=== PATIENT | female | born 1945 | race Caucasian/White ===

== ENCOUNTER → 2018-01-16 13:40 | Outpatient (CLI) | payer MEDICARE, OTHER, SELFPAY | PROVIDERS: Family Provider Internal Medicine; PCP Physician Assistant; Visit Provider Physician Assistant | DX: N39.0 Urinary tract infection, site not specified (principal) | CPT/HCPCS: 87086 ==

== ENCOUNTER → 2018-04-29 09:50 | Outpatient (CLI) | payer MEDICARE, OTHER, SELFPAY ==
--- NOTE | 2018-04-29 09:52 | DI.MG.S_ITS ---
BILATERAL DIGITAL SCREENING MAMMOGRAM 3D/2D WITH CAD: 04/29/2018 CLINICAL: Routine screening. Family history of breast cancer. Comparison is made to exams dated: 09/08/2014 mammogram, 08/27/2014 mammogram, and 08/24/2011 mammogram - [facility]. The tissue of both breasts is extremely dense, which lowers the sensitivity of mammography. Current study was also evaluated with a Computer Aided Detection (CAD) system. There is an asymmetry in the right breast posterior depth superior region seen on the mediolateral oblique view only. There is architectural distortion in the left breast posterior depth superior region seen on the mediolateral oblique view only. No other significant masses or calcifications are seen in either breast. IMPRESSION: INCOMPLETE: NEEDS ADDITIONAL IMAGING EVALUATION The asymmetry in the right breast posterior depth superior region seen on the mediolateral oblique view only is indeterminate. Additional views with possible ultrasound are recommended. The architectural distortion in the left breast posterior depth superior region seen on the mediolateral oblique view only is indeterminate. Additional views with possible ultrasound are recommended. This exam was interpreted at Station ID: [id number]. NOTE: For mammograms, a report in lay terms will be sent to the patient. Approximately 15% of breast malignancies will not be visualized mammographically. In the management of a palpable breast mass, a negative mammogram must not discourage biopsy of a clinically suspicious lesion. Electronically Signed By: Tien rocha/stephanie:04/29/2018 13:53:57 letter sent: Additional Imaging Needed ACR BI-RADS Category 0: Incomplete 3340F
== END ==
PROVIDERS: Family Provider Internal Medicine; PCP Physician Assistant; Visit Provider Family Medicine
DX: Z12.31 Encounter for screening mammogram for malignant neoplasm of breast (principal); Z80.3 Family history of malignant neoplasm of breast; M85.88 Other specified disorders of bone density and structure, other site; Z78.0 Asymptomatic menopausal state
CPT/HCPCS: 77063; 77067; 77080

== ENCOUNTER → 2018-05-20 14:47 | Outpatient (CLI) | payer MEDICARE, OTHER, SELFPAY ==
--- NOTE | 2018-05-20 14:49 | DI.US.S_ITS ---
ULTRASOUND OF RIGHT BREAST: 05/20/2018 CLINICAL: Follow up from addtional views. Comparison is made to exams dated: 05/20/2018 mammogram, 04/29/2018 mammogram, and 09/08/2014 mammogram - [facility]. Real-time and Doppler ultrasound of the right breast were performed. Ricci scale images of the real-time examination were reviewed. Targeted ultrasound was performed in the upper outer right breast and right axilla. No masses or abnormalities are identified. IMPRESSION: NEGATIVE There is no sonographic evidence of malignancy in the right breast or axilla. Return to annual screening mammography of the right breast is recommended. This exam was interpreted at Station ID: [id number]. Electronically Signed By: Kameron Leblanc M.D. ecl/:05/20/2018 22:09:26 letter sent: Normal Exam Ultrasound BI-RADS: 1 Negative
--- NOTE | 2018-05-20 14:49 | DI.MG.S_ITS ---
BILATERAL DIGITAL DIAGNOSTIC MAMMOGRAM 3D/2D WITH ADDITIONAL VIEWS: 05/20/2018 CLINICAL: Additional evaluation requested from prior study. Family history of breast cancer. Comparison is made to exams dated: 04/29/2018 mammogram, 09/08/2014 mammogram, and 08/27/2014 mammogram - [facility]. The tissue of both breasts is extremely dense, which lowers the sensitivity of mammography. Previously noted are of architectural distortion in the left breast localizes to 12 o'clock position middle depth on today's exam, and measures approximately 2.5 cm in greatest extent. The asymmetry in the right breast posterior depth superior region seen on the mediolateral oblique view only of screening mammograms appears to correlate with lymph nodes. No other significant masses, calcifications, or other findings are seen in either breast. IMPRESSION: INCOMPLETE: NEEDS ADDITIONAL IMAGING EVALUATION 1) The 2.5 cm architectural distortion in the left breast is indeterminate. An ultrasound is recommended. 2) Previously noted asymmetry in the right breast posterior depth superior region seen on the mediolateral oblique view only of screening mammograms appears to correlate with lymph nodes. An ultrasound is recommended. This exam was interpreted at Station ID: [id number]. NOTE: For mammograms, a report in lay terms will be sent to the patient. Approximately 15% of breast malignancies will not be visualized mammographically. In the management of a palpable breast mass, a negative mammogram must not discourage biopsy of a clinically suspicious lesion. Electronically Signed By: Kameron Leblanc M.D. ecl/:05/20/2018 16:08:08 letter sent: Additional Imaging Needed ACR BI-RADS Category 0: Incomplete 3340F
--- NOTE | 2018-05-20 14:49 | DI.US.S_ITS ---
ULTRASOUND OF LEFT BREAST AND LEFT AXILLA: 05/20/2018 CLINICAL: Patient returns for additional imaging over a suspected mass in the left breast. Comparison is made to exams dated: 05/20/2018 mammogram, 04/29/2018 mammogram, and 09/08/2014 mammogram - [facility]. Real-time and Doppler ultrasound of the left breast and axilla were performed. Ricci scale images of the real-time examination were reviewed. There is a 1.2 cm x 1.1 cm irregular mass with an irregular margin in the left breast at 12 o'clock middle depth 3 cm from the nipple. This irregular mass is hypoechoic. This correlates with mammography findings. Color flow imaging demonstrates that there is no vascularity present. No abnormalities were seen sonographically in the left axilla. IMPRESSION: SUSPICIOUS OF MALIGNANCY - FOLLOW-UP RECOMMENDED 1) The 1.2 cm x 1.1 cm irregular mass in the left breast is at a moderate suspicion for malignancy. An ultrasound guided biopsy is recommended. 2) No left axillary lymphadenopathy. These results and recommendations were discussed with the patient at the time of the exam by the [facility] Radiologist Dr. Bar Mesa in person. This exam was interpreted at Station ID: [id number]. Electronically Signed By: Kameron Leblanc M.D. ecl/:05/20/2018 22:12:20 letter sent: Biopsy Required Ultrasound BI-RADS: 4c Suspicious abnormality - moderate concern but not classic for malignancy
== END ==
PROVIDERS: PCP Family Medicine; Visit Provider Family Medicine
DX: R92.8 Other abnormal and inconclusive findings on diagnostic imaging of breast (principal); Z80.3 Family history of malignant neoplasm of breast; N63.20 Unspecified lump in the left breast, unspecified quadrant
CPT/HCPCS: 76642; 77066; G0279

== ENCOUNTER → 2018-06-11 12:44 | Outpatient (CLI) | payer MEDICARE, OTHER, SELFPAY ==
--- NOTE | 2018-06-11 | PATH_ITS ---
[facility] Accession Number: [id number] . 01 Material submitted: . LEFT BREAST . 01 Clinical history: . MASS 12 O'CLOCK 3CM FROM NIPPLE . 02 Diagnosis: Left Breast, Mass at 12 o'clock, 3 cm From Nipple Anterior Depth, Needle Core Biopsy: Benign fibroepithelial breast tissue with dense stromal fibrosis. Negative for atypia or malignancy. MRV/06/12/2018 . 02 Electronically signed: . Xiao Bradley MD, Pathologist NPI- [id number] . 01 Gross description: . Received one formalin-filled container labeled with the patient's name and designated left breast mass 12 o'clock 3 cm from nipple. The specimen is received with a plastic filter in the container, sample loose in container and consists of multiple light yellow to sharp-white portions of tissue which aggregate to 1.1 x 0.5 x 0.3 cm. All fragments are entirely submitted in one cassette. Collection date: 06/11/2018. Collection time: 14:08. Total fixation time: 12 hours, up to 24. ([id number]) /FRR . 02 Pathologist provided ICD-10: N63.20 . 02 CPT . 732513 Specimen Comment: A duplicate report has been generated due to demographic updates. Performed at: 01 [facility] [address] [facility], [place], [place] [id number] MD Fawad Akhtar MD Phone: [phone] Performed at: [address] [facility] [address] [place], [place] [id number] MD Bj Roman MD Phone: [phone]
--- NOTE | 2018-06-11 | DI.MG.S_ITS ---
UNILATERAL LEFT DIGITAL DIAGNOSTIC MAMMOGRAM POST-NEEDLE BIOPSY: 06/11/2018 CLINICAL: Left breast mass. Post clip placement. Comparison is made to exams dated: 05/20/2018 ultrasound, 05/20/2018 mammogram, and 04/29/2018 mammogram - [facility]. The tissue of left breast is extremely dense, which lowers the sensitivity of mammography. There is a marker clip in the appropriate position in the left breast at 12 o'clock anterior depth. This marker clip placement is at the biopsy site. This correlates with ultrasound findings. IMPRESSION: POST PROCEDURE MAMMOGRAM FOR MARKER PLACEMENT There was a successful marker clip placement in the left breast anterior depth. This exam was interpreted at Station ID: [id number]. NOTE: For mammograms, a report in lay terms will be sent to the patient. Approximately 15% of breast malignancies will not be visualized mammographically. In the management of a palpable breast mass, a negative mammogram must not discourage biopsy of a clinically suspicious lesion. Electronically Signed By: Bar batista/stephanie:06/11/2018 16:49:58 ACR BI-RADS Category Post-procedure mammogram for marker placement
--- NOTE | 2018-06-11 12:46 | DI.US.S_ITS ---
ULTRASOUND GUIDED BIOPSY LEFT BREAST USING VACUUM DEVICE WITH MARKING DEVICE INSERTED AND POST MAMMOGRAPHIC IMAGIN06/11/2018 CLINICAL: Left breast mass. PATIENT CONSENT: Risks (minor bleeding, infection, vasovagal reaction and repeat procedure), benefits and alternatives were explained to the patient and written informed consent was obtained. Correlation is made to exams dated: 06/11/2018 mammogram, 05/20/2018 ultrasound, and 05/20/2018 mammogram - [facility]. An ultrasound guided biopsy using real-time ultrasound was performed for the concerning 1.1 cm x 1.2 cm x 1.3 cm microlobulated irregular shaped mass located in the left breast at 12 o'clock anterior depth. This was described on the previous ultrasound report. The skin was prepped in the usual manner. Local anesthetic was administered to the access site. A skin cory was made in the breast. The abnormality was approached from the lateral aspect. A 13 gauge biopsy needle was placed adjacent to the abnormality under ultrasound guidance. Once the needle was documented to be in the correct location, five specimens were obtained using the Mammotome biopsy system. The patient received additional local anesthetic during the procedure. A clip was inserted into the biopsy cavity. A sterile dressing was applied to the access site. Post procedure mammographic imaging demonstrates the location device at the targeted area. The specimens were sent to the laboratory for pathological analysis. IMPRESSION: ULTRASOUND GUIDED BIOPSY BENIGN Ultrasound guided biopsy of the 1.1 cm x 1.2 cm x 1.3 cm mass in the left breast at 12 o'clock anterior depth was successful. Pathology demonstrates benign breast tissue with stromal fibrosis. Findings are potentially discordant from mammographic and ultrasound findings. A surgical biopsy or repeat biopsy are recommended. Findings discussed with Dr. John's nurse on 06/13/18 at 11:20 AM. This exam was interpreted at Station ID: [id number]. Bar batista,rema/:06/13/2018 11:23:27
== END ==
PROVIDERS: PCP Family Medicine; Visit Provider Family Medicine
DX: N60.32 Fibrosclerosis of left breast (principal)
CPT/HCPCS: 19083; 77065; 88305

== ENCOUNTER → 2018-06-24 15:33 | Outpatient (CLI) | payer MEDICARE, OTHER, SELFPAY ==
--- NOTE | 2018-06-24 15:35 | DI.RAD.S_ITS ---
PROCEDURE: XR LUMBAR SPINE MIN 4V INDICATIONS: Low back pain TECHNIQUE: 5 views of the lumbar spine acquired, including both obliques. COMPARISON: [facility], , L-SPINE 2-3 VIEWS, 06/15/2014, 10:22. FINDINGS: Bones: 5 nonrib-bearing vertebrae are present. There is abnormal bony alignment with Grade I-grade 2 anterolisthesis of L4 and L5 associated with moderately severe facet osteoarthritis and moderate degenerative disc height reduction at this level, allowing ligamentous laxity. Pars interarticularis defects are not seen. Note is also mad, chronic in appearance.e of mild convex rightward scoliosis centered at L2-3. No vertebral body compression fractures. No suspicious bony lesions. Soft tissues: Overlying bowel gas pattern is normal. No suspicious soft tissue calcifications. Flexion/extension: There is normal range of motion, with preserved normal alignment. IMPRESSION: No compression fracture is found. Chronic mild convex rightward scoliosis centered at L2-3 slightly worsened from the comparison study in June 2014. Note is made of Grade I-grade 2 anterolisthesis of L4 on L5, secondary to ligamentous laxity from degenerative disc disease and moderately severe facet osteoarthritis dorsally at this level. Dictated by: Bar Mesa M.D. on 06/24/2018 at 17:24 Approved by: Bar Mesa M.D. on 06/24/2018 at 17:26
--- NOTE | 2018-06-24 15:35 | DI.RAD.S_ITS ---
PROCEDURE: XR SACRUM COCCYX MIN 2V INDICATIONS: Low back pain and sacral TECHNIQUE: 3 views of the sacrum and coccyx acquired. COMPARISON: None. FINDINGS: Bones: No fractures or dislocations but there is anterolisthesis grade 1 Grade II at L4-5 seen at the upper margin of the imaging of the sacrum on the lateral view. No suspicious bony lesions. Soft tissues: Visualized bowel gas pattern is normal. No suspicious soft tissue densities. IMPRESSION: Source of sacral pain is not seen. No sign of spondyloarthropathy. Note is made of retrolisthesis on the lateral view at L4-5 and this is Grade I-2. Please also refer to plain film imaging of the lumbosacral spine today. Dictated by: Bar Mesa M.D. on 06/24/2018 at 17:23 Approved by: Bar Mesa M.D. on 06/24/2018 at 17:24
== END ==
PROVIDERS: PCP Family Medicine; Visit Provider Registered Nurse
DX: M54.5 Low back pain (principal); M53.3 Sacrococcygeal disorders, not elsewhere classified; M43.16 Spondylolisthesis, lumbar region; M41.86 Other forms of scoliosis, lumbar region; M51.36 Other intervertebral disc degeneration, lumbar region; M47.816 Spondylosis without myelopathy or radiculopathy, lumbar region
CPT/HCPCS: 72110; 72220

== ENCOUNTER → 2018-07-29 18:13 | Outpatient (CLI) | payer MEDICARE, OTHER, SELFPAY | PROVIDERS: PCP Family Medicine; Visit Provider Physician Assistant | DX: R39.9 Unspecified symptoms and signs involving the genitourinary system (principal) | CPT/HCPCS: 87086 ==

== ENCOUNTER 2018-09-24 07:11 | Day surgery (SDC) | payer MEDICARE, OTHER, SELFPAY ==
[2018-09-19 10:56] VITALS: BMI 26.1
[2018-09-24 07:41] VITALS: BP 135/83; PULSE 68; RESP 16; TEMP 36.3; O2SAT 97; BMI 26.1
--- NOTE | 2018-09-24 09:29 | PM.PN.1 ---
Subjective Date Patient Seen: 09/24/18 Time Patient Seen: 09:29 Interval history: Patient was scheduled for surgery today but this procedure has been canceled. On review of all the films with Dr. Mesa, the lesion scheduled for excision today is no longer visible. A different lesion, anterior to the area of the abnormality on mammogram has been biopsied and has been found to be benign. Who after long discussion with both Dr. Mesa an Mrs. Singh, we have elected to cancel today's scheduled biopsy. We will order an MRI of the breast. Assuming the MRI is normal, we will plan to return to yearly screening. Other recommendations will follow if the MRI is seen to be abnormal. Exam Vital Signs (past 8 hours): - 09/24/18 07:41 Temperature 97.3 F L Pulse Rate 68 Respiratory Rate 16 Blood Pressure 135/83 Pulse Oximetry 97 Oxygen Delivery Method Room Air
== END 2018-09-24 09:18 ==
LOC: OR 07:13
PROVIDERS: PCP Family Medicine; Visit Provider Surgery

== ENCOUNTER → 2018-12-12 15:14 | Outpatient (CLI) | payer MEDICARE, OTHER, SELFPAY | PROVIDERS: PCP Family Medicine; Visit Provider Family Medicine | DX: R07.81 Pleurodynia (principal); M25.519 Pain in unspecified shoulder ==

== ENCOUNTER → 2018-12-18 10:43 | Outpatient (CLI) | payer MEDICARE, OTHER, SELFPAY ==
--- NOTE | 2018-12-18 10:46 | DI.RAD.S_ITS ---
PROCEDURE: XR CHEST 2V INDICATIONS: Shoulder pain TECHNIQUE: 2 views of the chest were acquired. COMPARISON: [facility], , CHEST 2 VIEW, 11/03/2007, 13:01. FINDINGS: Surgical changes and devices: None. Lungs and pleura: Lungs are clear. No pleural effusions or pneumothorax. Mediastinum: Mediastinal contours are normal. Heart size is normal. Bones and chest wall: No suspicious bony abnormalities. Soft tissues appear unremarkable. IMPRESSION: Normal for age, source of current shoulder pain symptoms is not seen. Dictated by: Bar Mesa M.D. on 12/18/2018 at 11:58 Approved by: Bar Mesa M.D. on 12/18/2018 at 11:58
--- NOTE | 2018-12-18 10:46 | DI.RAD.S_ITS ---
PROCEDURE: XR SHOULDER LT MIN 2V INDICATIONS: Shoulder pain TECHNIQUE: 3 views of the shoulder were acquired. COMPARISON: [facility], , SHOULDER MINIMUM 2 VIEW LEFT, 10/12/2016, 14:54. FINDINGS: Bones: No fractures or dislocations. No suspicious bony lesions. Visualized ribs appear intact. Soft tissues: No suspicious soft tissue calcifications. IMPRESSION: No trauma found but there is moderately severe degenerative osteophytic change stable over time at the glenohumeral joint. A mild to moderate degree of such degeneration is seen at the acromioclavicular joint. Dictated by: Bar Mesa M.D. on 12/18/2018 at 11:58 Approved by: Bar Mesa M.D. on 12/18/2018 at 11:59
== END ==
PROVIDERS: PCP Family Medicine; Visit Provider Family Medicine
DX: R07.81 Pleurodynia (principal); M25.512 Pain in left shoulder; M19.012 Primary osteoarthritis, left shoulder
CPT/HCPCS: 71046; 73030

== ENCOUNTER → 2020-11-16 16:44 | Outpatient (CLI) | payer MEDICARE, OTHER, SELFPAY ==
--- NOTE | 2020-11-16 16:48 | DI.MG.S_ITS ---
BILATERAL DIGITAL SCREENING MAMMOGRAM 3D/2D WITH CAD: 11/16/2020 CLINICAL: Routine screening. Family history of breast cancer. Comparison is made to exams dated: 06/11/2018 mammogram, 05/20/2018 mammogram, and 04/29/2018 mammogram - [facility]. The tissue of both breasts is heterogeneously dense. This may lower the sensitivity of mammography. Current study was also evaluated with a Computer Aided Detection (CAD) system. No significant masses, calcifications, or other findings are seen in either breast. There has been no significant interval change. IMPRESSION: NEGATIVE There is no mammographic evidence of malignancy. A 1 year screening mammogram is recommended. This exam was interpreted at Station ID: [id number]. NOTE: For mammograms, a report in lay terms will be sent to the patient. Approximately 15% of breast malignancies will not be visualized mammographically. In the management of a palpable breast mass, a negative mammogram must not discourage biopsy of a clinically suspicious lesion. Electronically Signed By: Preston cummins/stephanie:11/17/2020 07:46:15 letter sent: Normal Exam ACR BI-RADS Category 1: Negative [id number]
== END ==
PROVIDERS: PCP Family Medicine; Referring Provider Family Medicine; Visit Provider Family Medicine
DX: Z12.31 Encounter for screening mammogram for malignant neoplasm of breast (principal)
CPT/HCPCS: 77063; 77067

== ENCOUNTER → 2021-06-06 11:31 | Outpatient (CLI) | payer OTHER, SELFPAY ==
--- NOTE | 2021-06-06 11:35 | DI.RAD.S_ITS ---
PROCEDURE: XR ELBOW LT MIN 3V INDICATIONS: fall, bruising, edema TECHNIQUE: 3 views of the elbow were acquired. COMPARISON: None. FINDINGS: Bones: No fractures or dislocations. No suspicious bony lesions. Scattered degenerative subchondral sclerosis and spurring. Mild narrowing of the radiocapitellar joint space. Soft tissues: No elbow joint effusion. No suspicious soft tissue calcifications. IMPRESSION: Ipaa-ud-qfcucyzj left elbow joint degeneration. No fracture . If the patient's pain or other symptoms persist, consider further evaluation with MRI Dictated by: Jose Johnson M.D. on 06/06/2021 at 14:11 Approved by: Jose Johnson M.D. on 06/06/2021 at 14:13
== END ==
PROVIDERS: PCP Family Medicine; Referring Provider Family Medicine; Visit Provider Family Medicine
DX: M25.522 Pain in left elbow (principal); M19.022 Primary osteoarthritis, left elbow
CPT/HCPCS: 73080

== ENCOUNTER → 2022-01-30 15:43 | Outpatient (CLI) | payer MEDICARE, OTHER, SELFPAY ==
[2022-01-30 16:47] LABS: Add Manual Diff / Slide Review NO; Basophils Absolute Auto 100 /uL (0-100); Eosinophils Absolute Auto 400 /uL (0-450); Eosinophils Percent Auto 6.1 % (2-4); Hematocrit 40.5 % (36-46); Hemoglobin 13.9 g/dL (12.0-16.0); Lymphocytes Absolute Auto 2000 /uL (1100-4500); Lymphocytes Percent Auto 30.6 % (25-40); Mean Corpuscular HGB Conc 34.2 % (30-36); Mean Corpuscular Hemoglobin 31.2 PG (26-34); Monocytes Absolute Auto 400 /uL (0-900); Monocytes Percent Auto 6.9 % (3-14); Neutrophils Absolute Auto 3500 /uL (1500-7000); Neutrophils Percent Auto 55.4 % (50-75); Platelet Count 225 X10^3/uL (150-400); Red Blood Cell Count 4.45 X10^6/uL (4.0-5.2); Red Cell Distribution Width 13.1 % (11.6-14.8); White Blood Cell Count 6.4 X10^3/uL (4.5-11.0)
[2022-01-30 17:05] LABS: Alanine Aminotransferase 21 IU/L (<35); Albumin 4.5 g/dL (3.5-5.0); Albumin Globulin Ratio 1.7 (1.0-2.8); Alkaline Phosphatase 74 U/L (38-126); Aspartate Aminotransferase 24 IU/L (14-36); BUN Creatinine Ratio 19.8 (6-22); Bilirubin Total 0.3 mg/dL (0.2-1.3); Blood Urea Nitrogen 16 mg/dL (7-17); Calcium 9.4 mg/dL (8.4-10.2); Carbon Dioxide 28 mmol/L (22-32); Chloride 104 mmol/L (98-107); Cholesterol 231 mg/dL (140-199); Estimated Glomerular Filt Rate > 60 mL/min (>60); Globulin 2.7 g/dL (1.7-4.1); Glucose 133 mg/dL (80-110); HDL Cholesterol 62 mg/dL (40-60); HEMOLYSIS < 15 (0-50); LDL Cholesterol Calculated 130 mg/dL (<100); Sodium 139 mmol/L (137-145); Total Protein 7.2 g/dL (6.3-8.2); Triglycerides 194 mg/dL (35-150)
[2022-01-30 17:52] LABS: TSH w/ Reflex to FT4 1.35 uIU/mL (0.47-4.68)
== END ==
PROVIDERS: PCP Family Medicine; Referring Provider Family Medicine; Visit Provider Family Medicine
DX: E78.5 Hyperlipidemia, unspecified (principal); E03.9 Hypothyroidism, unspecified; M85.80 Other specified disorders of bone density and structure, unspecified site
CPT/HCPCS: 36415; 80053; 80061; 84443; 85025

== ENCOUNTER → 2022-02-01 16:55 | Outpatient (CLI) | payer MEDICARE, OTHER, SELFPAY ==
[2022-02-01 17:26] LABS: Hemoglobin A1C% w Est Avg Glu 5.3 % (4.0-6.0)
== END ==
PROVIDERS: PCP Family Medicine; Visit Provider Family Medicine
DX: R73.9 Hyperglycemia, unspecified (principal)
CPT/HCPCS: 83036

== ENCOUNTER → 2022-02-22 12:39 | Outpatient (CLI) | payer MEDICARE, OTHER, SELFPAY ==
--- NOTE | 2022-02-22 12:43 | DI.MG.S_ITS ---
BILATERAL DIGITAL SCREENING MAMMOGRAM 3D/2D WITH CAD: 02/22/2022 CLINICAL: Routine screening. Family history of breast cancer. Comparison is made to exams dated: 11/16/2020 mammogram, 04/29/2018 mammogram, and 08/27/2014 mammogram - [facility]. The tissue of both breasts is heterogeneously dense. This may lower the sensitivity of mammography. Current study was also evaluated with a Computer Aided Detection (CAD) system. No significant masses, calcifications, or other findings are seen in either breast. There has been no significant interval change. IMPRESSION: NEGATIVE There is no mammographic evidence of malignancy. A 1 year screening mammogram is recommended. This exam was interpreted at Station ID: [id number]. NOTE: For mammograms, a report in lay terms will be sent to the patient. Approximately 15% of breast malignancies will not be visualized mammographically. In the management of a palpable breast mass, a negative mammogram must not discourage biopsy of a clinically suspicious lesion. Electronically Signed By: Austyn beckman/stephanie:02/22/2022 14:50:50 letter sent: Normal Exam ACR BI-RADS Category 1: Negative [id number]
== END ==
PROVIDERS: PCP Family Medicine; Referring Provider Family Medicine; Visit Provider Family Medicine
DX: Z12.31 Encounter for screening mammogram for malignant neoplasm of breast (principal); Z78.0 Asymptomatic menopausal state; Z80.3 Family history of malignant neoplasm of breast; M85.89 Other specified disorders of bone density and structure, multiple sites
CPT/HCPCS: 77063; 77067; 77080

== ENCOUNTER → 2022-04-04 10:10 | Outpatient (CLI) | payer MEDICARE, OTHER, SELFPAY ==
[2022-04-04 11:22] LABS: COVID19 -Nasal RAPID Negative (Negative)
== END ==
PROVIDERS: PCP Family Medicine; Visit Provider Surgery
DX: Z20.822 Contact with and (suspected) exposure to COVID-19 (principal); Z01.812 Encounter for preprocedural laboratory examination
CPT/HCPCS: 87635; C9803

== ENCOUNTER 2022-04-05 11:53 | Day surgery (SDC) | payer MEDICARE, OTHER, SELFPAY ==
[2022-04-05 12:23] VITALS: BP 142/82; PULSE 67; RESP 16; TEMP 36.1; O2SAT 100; BMI 25.4
--- NOTE | 2022-04-05 13:35 | PM.HP.1 ---
History of Present Illness History of Present Illness Date Patient Seen: 04/05/22 Time Patient Seen: 13:36 Chief complaint: SCREENING COLONOSCOPY Narrative: Saundra is a 77-year-old woman who had a colonoscopy 10 years ago that was normal. She is otherwise healthy. Patient History Medical History (Updated 04/05/22 @ 13:37 by German Bragg MD) Acne Anxiety Arthritis Chicken pox Colitis (~1968) Foot pain Frequent UTI (~1968) Hemorrhoid (~1983) Hyperlipidemia Irregular menstrual cycle (~1949) Measles Mumps Osteopenia (~2015) Painful menstrual periods (~1949) Pneumonia Sciatica Shoulder pain (~2013) Vision disorder Surgical History H/O blepharoplasty History of ectopic (~08/1984) History of third molar tooth extraction Family & Social History Family History Mother Heart disease Father Cancer Heart disease Mental health problem Brother Diabetes mellitus Hypertension Brother Heart disease Atrial fibrillation Sister Heart disease Atrial fibrillation Grandfather Diabetes mellitus Grandmother Heart disease Social History: household members none lives independently Yes Tobacco & Substance use: Tobacco type cigarettes Smoking Status Never smoker alcohol intake current alcohol intake frequency 0-2 drinks per day Substance Use Type does not use Meds Home Medications and Allergies Home Medications Medication Instructions Recorded Confirmed Type List of supplements in scans dated See Rx Instructions .Route .COMPLEX 09/16/20 04/05/22 History 09/16/20 sodium sul 1.479 gram-potas ch See Rx Instructions PO PER PKG DIR 03/23/22 Rx 0.188 gram-magnes sul 0.225 gram #24 tabs tablet (Sutab) Allergies Allergy/AdvReac Type Severity Reaction Status Date / Time tetracycline Allergy Mild RASH Verified 04/05/22 12:11 Exam Vital Signs (past 8 hours): - 04/05/22 12:23 Temperature 97.0 F L Pulse Rate 67 Respiratory Rate 16 Blood Pressure 142/82 H Pulse Oximetry 100 Oxygen Delivery Method Room Air Oxygen Delivery Method Room Air Const General: healthy appearing Resp Effort & Inspection: normal respiratory effort GI Palpation: soft Assessment & Plan Assessment and plan (1) Colon cancer screening: Status: Acute Plan 77-year-old woman due for colonoscopy for colon cancer screening. We reviewed the risks and benefits and she would like to proceed. Time Spent With Patient Critical Care time: I spent a total of [] minutes of critical care time on this patient's care today; this time is exclusive of procedural time.
[2022-04-05] MEDS: fentaNYL 250 MCG/5 ML INJ 125 MCG IV (13:46)
[2022-04-05] MEDS: MIDAZOLAM 5 MG/5 ML VIAL IV (13:46)
--- NOTE | 2022-04-05 14:05 | PM.OP.COLON ---
Operative Date/Time/Diagnoses Date of procedure: 04/05/22 Time of procedure: 14:06 Pre-op diagnosis: Colon cancer screen Post-op diagnosis: same Procedure & Clinicians Study performed: Colonoscopy Same procedure as scheduled: Yes Surgeon: German Bragg Procedure Notes Procedure in detail: Surgeon: German Bragg MD Procedure: The patient was brought to the endoscopy suite, placed in left lateral decubitus position. The patient was connected to monitoring devices. A time-out was performed. Sedation was administered. Once the patient was adequately sedated, a digital rectal exam was performed and was normal. The scope was then inserted and advanced to the cecum where the appendiceal orifice was identified and photographed. The scope was then slowly withdrawn over greater than 6 minutes. The mucosa was thoroughly inspected. There were scattered diverticula in the sigmoid colon. The scope was retroflexed in the rectum. There were mild internal hemorrhoids but no other abnormalities were seen. The scope was straightened and removed. The patient was awakened and brought to recovery. Versed: 5 mg Fentanyl: 125 mcg EBL: 0 Findings: Ahrj-af-fsnitytn diverticulosis Scope withdrawal time: 8 Sedation minutes: 17 Post-procedure Recommendations: Colonoscopy in 10 years Disposition: PACU
[2022-04-05 14:09] VITALS: BP 127/74; PULSE 68; RESP 11; TEMP 36.1; O2SAT 95
[2022-04-05 14:14] VITALS: BP 119/68; PULSE 63; RESP 11; O2SAT 95
[2022-04-05 14:19] VITALS: BP 122/79; PULSE 66; RESP 11; O2SAT 96
[2022-04-05 14:24] VITALS: BP 115/77; PULSE 58; RESP 11; O2SAT 95
[2022-04-05 14:31] VITALS: BP 124/76; PULSE 61; RESP 11; O2SAT 94
== END 2022-04-05 14:50 | disposition home or self-care (01) ==
PROVIDERS: PCP Family Medicine; Referring Provider Surgery; Visit Provider Surgery
PROC: 0DJD8ZZ Inspection of Lower Intestinal Tract, Via Natural or Artificial Opening Endoscopic (ICD-10-PCS; CPT 45378; principal; 2022-04-05 13:15)
DX: Z12.11 Encounter for screening for malignant neoplasm of colon (principal); K57.30 Diverticulosis of large intestine without perforation or abscess without bleeding; K64.8 Other hemorrhoids
CPT/HCPCS: G0121; 99152; J2250; J3010

== ENCOUNTER → 2024-06-03 14:33 | Outpatient (CLI) | payer MEDICARE, OTHER, SELFPAY ==
--- NOTE | 2024-06-03 14:36 | DI.RAD.S_ITS ---
PROCEDURE: XR SHOULDER RT MIN 2V INDICATIONS: Right shoulder pain TECHNIQUE: 3 views of the shoulder were acquired. COMPARISON: None. FINDINGS: Bones: No fractures or dislocations. No suspicious bony lesions. Visualized ribs appear intact. Moderate acromioclavicular and glenohumeral degenerative change. No erosions. Soft tissues: No suspicious soft tissue calcifications. IMPRESSION: Moderate acromioclavicular glenohumeral arthritic change. Dictated by: Dyan Sheridan M.D. on 06/03/2024 at 21:14 Approved by: Dyan Sheridan M.D. on 06/03/2024 at 21:14
[2024-06-03 18:18] LABS: Aspartate Aminotransferase 26 IU/L (14-36); BUN Creatinine Ratio 22.5 (6-22); Blood Urea Nitrogen 16 mg/dL (7-17); Calcium 9.5 mg/dL (8.4-10.2); Carbon Dioxide 29 mmol/L (22-32); Chloride 101 mmol/L (98-107); Cholesterol 220 mg/dL (140-199); Estimated Glomerular Filt Rate > 60 mL/min (>60); Glucose 104 mg/dL (80-110); HDL Cholesterol 58 mg/dL (40-60); HEMOLYSIS < 15 (0-50); LDL Cholesterol Calculated 138 mg/dL (<100); Potassium 3.6 mmol/L (3.4-5.1); Sodium 136 mmol/L (137-145); Triglycerides 121 mg/dL (35-150)
[2024-06-03 18:47] LABS: TSH w/ Reflex to FT4 2.05 uIU/mL (0.47-4.68)
== END ==
PROVIDERS: PCP Internal Medicine; Referring Provider Internal Medicine; Visit Provider Internal Medicine
DX: E78.2 Mixed hyperlipidemia (principal); M25.511 Pain in right shoulder; M75.80 Other shoulder lesions, unspecified shoulder; M85.80 Other specified disorders of bone density and structure, unspecified site; M89.9 Disorder of bone, unspecified
CPT/HCPCS: 36415; 73030; 80048; 80061; 84443; 84450

== ENCOUNTER 2024-11-10 08:15 | Outpatient (RCR) | payer MEDICARE, OTHER, SELFPAY ==
--- NOTE | 2024-06-30 17:19 | PT.OIE ---
Current Diagnoses Pain in right shoulder (06/30/24) Lumbago with sciatica, unspecified side (06/30/24) Other shoulder lesions, right shoulder (06/30/24) Past Medical History (Last Reviewed 05/12/24 @ 06:34 by Eddie Poole MD) Acne Acquired hypothyroidism Anxiety Arthritis Chicken pox Colitis (~1968) Foot pain Frequent UTI (~1968) Hemorrhoid (~1983) Irregular menstrual cycle (~1949) Measles Mixed hyperlipidemia Mumps Osteopenia (~2015) Painful menstrual periods (~1949) Pneumonia Sciatica Shoulder pain (~2013) Vision disorder Past Surgical History (Last Reviewed 05/12/24 @ 06:34 by Eddie Poole MD) H/O blepharoplasty History of ectopic (~08/1984) History of third molar tooth extraction Visit Care Team Role Provider Type Eddie Poole MD Attending Provider Physician Family Provider Primary Care Provider Referring Provider Specialty: Internal Medicine Address: [address] [place] [address] Email: [email or web address] Physical Therapy Initial Evaluation PT-OP-A Visit Information Start: 06/23/24 19:42 Freq: Status: Active Protocol: Document 06/30/24 13:48 LRN (Rec: 06/30/24 17:18 LRN [id number]) Out-Patient Physical Therapy Visit Information Visit Information Visit Type Treatment Note Visit Start Time 13:48 Visit Stop Time 14:37 Visit Number 1 Evaluation Information Evaluation Date 06/30/24 Precautions Precautions Osteopenia, scoliosis, arthritis, thyroid disorder, history of caroline shoulder, & back pain. PMH reported: Concussion 6 yrs ago after being hip by door knob accidently. PT-OP-B Current Condition Start: 06/23/24 19:42 Freq: Status: Active Protocol: Document 06/30/24 13:48 LRN (Rec: 06/30/24 17:18 LRN [id number]) Current Condition History of Current Condition Onset Date May Current Complaints Pain in R shldr radiating up the neck. Increasing pain when not distracted History of Current Condition Pt states she is interested in having therapy for her R shoulder and neck pain, stating her back is not a problem anymore. Pt reports, maybe because of gardening she started to have throbbing R shoulder pain in the back and radiating up the neck. Her pain has caused her to adjust her sleeping position to mostly sleep on her R side. She c/o she can't sleep on her L side because of R shoulder pain. She reports 2 days ago her R shoulder was slammed by elevator doors, causing her pain to be of greater intensity and up the neck. Prior Treatments and Tests PT for previous shoulder therapy (caroline shoulders both and individual shoulders for pain), for unknown diagnosis (5-20 yrs ago). X-ray (06/03/24) indicates Moderate acromioclavicular glenohumeral arthritic change. Treatment Goals Patient/Caregiver Goals Pt goals: - not able to put weight on R shoulder to get out of bed comfortably using R arm to push self up (used to not have pain, now has pain. - Can't sit to watch TV for more than 10-15' w/o having to put R arm above head. - Pain with reaching out to side with R UE cooking or ironing rated 5/10. - Would like to be able to do home ex's to mitigate the pain . (used to go to ex class 3x/ wk, last time was in early May). 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 Baseline Function- Recreation/Hobbies Used to go to ex class 3x/wk. Baseline Function- Other Slept on both sides w/o pain. Able to get out of bed using R UE comfortably Current Functional Impairments (Reported) Functional Limitations- ADL's Needs help removing her vest. Difficulty getting out of bed due to R shoulder pain. 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) Margo Lives alone due to spouse 08/2020 PT-OP-C Subjective Start: 06/23/24 19:42 Freq: Status: Active Protocol: Document 06/30/24 13:48 LRN (Rec: 06/30/24 17:18 LRN [id number]) Patient Questionnaires Oswestry Low Back Index Oswestry Score 20 Oswestry Impairment 20 to 39% Impaired (Score 20- 39) Quick Dash- Upper Extremity Quick Dash UE Score 29.54 Quick Dash UE Impairment 20 to 39% Impaired (Score 20- 39) OP-PT Pain Assessment Pain Assessment Grid Paper Pain Assessment Grid Completed Yes Location R Neck/shoulder pain Pain Location Details Anterior/posterior shoulder/ brachium, & lateral/regional sales consultant neck Intensity 7 Description Aching Frequency Constant Pain Aggravating Factors Changing Position Pain Alleviating Factors Heat Other Pain Alleviating Factors Tylenol before going to bed if very painrul. PT-OP-G Mobility & Gait Start: 06/23/24 19:42 Freq: Status: Active Protocol: Document 06/30/24 13:48 LRN (Rec: 06/30/24 17:18 LRN [id number]) OP Mobility Evaluation Bed Mobility Supine to and from Sit Independent, but R shoulder pain when pushing up with RUE. PT-OP-J Posture/Palpation/Skin Start: 06/23/24 19:42 Freq: Status: Active Protocol: Document 06/30/24 13:48 LRN (Rec: 06/30/24 17:18 LRN [id number]) Posture Evaluation Position Standing Head/C-Spine Posture Forward Head Comments Posture Comments Trunk R shifted, L iliac crest is high, L hsoulder is kassidy, R shoulder retractied. neck straight, increased kyphosis, L side is body is posterior. down rotated and low on right, Palpation Assessment Location R shoulder Palpation Location Supraspinatus, infraspinatus Palpation Findings Muscle Guarding,Tenderness, Trigger Point R neck Palpation Location occiput to shouder (UT). Palpation Findings Muscle Guarding,Tenderness, Trigger Point PT-OP-K Range of Motion Start: 06/23/24 19:42 Freq: Status: Active Protocol: Document 06/30/24 13:48 LRN (Rec: 06/30/24 17:18 LRN [id number]) Cervical Spine Range of Motion Cervical Spine Active Percentage Flexion 100 Extension 100 Rotation Left 80 Rotation Right 80 Lateral Flexion Left 30 Lateral Flexion Right 45 ROM Limitations Soft Tissue Tightness Comments Stretch felt with R rot (60 deg's) Shoulder Goniometric Range of Motion Shoulder Right Active Testing Position Sitting Flexion 150 Abduction 157 External Rotation at 0 degrees Abduction 68 Comments ER reaching behind head to C7. Abduction: in scapular plane. Flexion is with elbow flexed (due to pain). Left Active Testing Position Sitting Flexion 147 Abduction 145 External Rotation at 0 degrees Abduction 50 Comments ER reaching behind head to T1. Abduction: in scapular plane. Hip Goniometric Range of Motion Hip Right Passive Testing Position Supine PT-OP-L Special Tests Start: 06/23/24 19:42 Freq: Status: Active Protocol: Document 06/30/24 13:48 LRN (Rec: 06/30/24 17:18 LRN [id number]) Special Tests Cervical Spine Special Tests Upper Limb Tension Test Test Results R UE: + median, + ulnar Traction Test Results - Spurling's Test Test Results + L SB Foraminal Compression Test Results - Shoulder Special Tests Elevation Impingement Test Results + R UE PT-OP-M Strength Start: 06/23/24 19:42 Freq: Status: Active Protocol: Document 06/30/24 13:48 LRN (Rec: 06/30/24 17:18 LRN [id number]) Shoulder Strength Shoulder Manual Muscle Testing Right Abduction (C5) 4 Good External Rotation 3 Fair Comments Generally 5/5 except as indicated above Left Comments Generally 5/5 PT-OP-Q Treatments Start: 06/23/24 19:42 Freq: Status: Active Protocol: Document 06/30/24 13:48 LRN (Rec: 06/30/24 17:18 LRN [id number]) Manual Therapy Treatment Consent Patient gave verbal consent for manual Yes treatment Self-Care/Home Management Treatment Education Other Education Discussed results of evaluation, goals, treatment, and plan of care (POC) with pt ; pt agreeable to evaluation, goals, treatment. Activities Self-Care/Home Management Activities Issued & reviewed HEP: cervical AROM ex of rotation and SB and written I/S for backward shoulder rolls and I /S for nighttime head/R UE positioning. PT-OP-T Assessment and Plan Start: 06/23/24 19:42 Freq: Status: Active Protocol: Document 06/30/24 13:48 LRN (Rec: 06/30/24 17:18 LRN [id number]) Physical Therapy Assessment Rehab Potential Rehabilitation Potential Good Evaluation Complexity Number of Personal Factors/Comorbidities 3 or More Number of Body Systems Impaired 4 or More Clinical Presentation at Evaluation Evolving Impairments Impairments Activity Tolerance,Pain, Posture,ROM,Soft Tissue Mobility,Strength,Transfers Goals Four Impairment Painful R shoulder AROM (pain reaching out to side, rated 5/ 10) Short Term Goal (STG) Improve R rotator cuff stength to 4/5 with pt able to reach out to the side with pain no greater than 2/10. STG Duration 08/14/24 [facility] Goal (LTG) Improve function with pt able to reaching out to side with R UE to cook or ironing with pain no greater than 1/10 ( currently rated 5/10). LTG Duration 09/25/24 Three Impairment R shoulder pain with UE WBing (transferring out of bed) [facility] Goal (LTG) Improve R shoulder strength with pt able to perform transfers out of bed at prior level of function of being able to weightbear on R shoulder to get out of bed comfortably, using R arm to push self up. LTG Duration 09/25/24 Two Impairment R shoulder pain at rest, not tolerating >15', pain rated 7/ 10 Short Term Goal (STG) Pt will be educated in self care pain management techniques (positioning, modalities, ex) to be able to tolerate sitting to watch a 30 minute TV program with pain no greater than 4/10. STG Duration 08/14/24 [facility] Goal (LTG) Decrease R shoulder pain to no greater than 1/10 with pt able to sit to watch a 30-60 long TV program w/o having to put R arm above head for pain relief. LTG Duration 09/25/24 One Impairment Pt lacks appropriate self care HEP. Short Term Goal (STG) Pt will be educated and will be able to position at nighttime to tolerate side sleeping on either side for a restful period of sleep. 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 ( used to go to ex class 3x/wk, last time was in early May). Assessment Summary Assessment Pt is a 79 yo female who present with R RC dysfunction and notable weakness with shoulder AB & ER ( supraspinatus and infraspinatus). She had a + Spurlings test, indicating possible neural involvement, but her other tests were negative. The pt has painful fairly good R shoulder AROM with functional mobility limitation (reaching behind head). Physical Therapy Plan Frequency and Duration Frequency of Treatment 2x/Week Duration of treatment (weeks) 12 Plan of Care Start Date 06/30/24 Plan of Care End Date 09/25/24 Therapeutic Interventions Therapeutic Interventions Home Exercise Program,Manual Therapy,Neuromuscular Re- education,Self-Care/Home Management,Soft Tissue Mobilization,Therapeutic Activities,Therapeutic Exercises Modalities Cold Pack/Ice Massage,Electric Stimulation,Hot Packs Next Visit Focus/Plan Next Note Type Treatment Note Next Visit Plan Check R UE DTRs and sensation, VA, & other shoulder special tests for impingement & Apley' s ROM. Discuss attendance policy. Start postural education and strengthening ex 's and RC ex's. Manual therapy of STM and trP treatments, possible dry needling session. Ther Ex for R shoulder, neck, T/S, postue ; Ther act for transfers and nighttime positioning. Modalities for pain and Education in self care and HEP (juárez milk). POC: Therapeutic Ex ( strengthening/ROM), Therapeutic Activity (transfer training), manual therapy ( STM), Pt Education (HEP, Edema and pain mgmt).
--- NOTE | 2024-07-02 16:51 | PT.OTN ---
Current Diagnoses Pain in right shoulder (07/02/24) Lumbago with sciatica, unspecified side (07/02/24) Other shoulder lesions, right shoulder (07/02/24) Physical Therapy Treatment Note PT-OP-A Visit Information Start: 06/23/24 19:42 Freq: Status: Active Protocol: Document 07/02/24 08:20 LRN (Rec: 07/02/24 09:06 LRN [id number]) Out-Patient Physical Therapy Visit Information Visit Information Visit Type Treatment Note Visit Start Time 08:20 Visit Stop Time 09:05 Visit Number 2 Evaluation Information Evaluation Date 06/30/24 Precautions Precautions Osteopenia, scoliosis, arthritis, thyroid disorder, history of caroline shoulder, & back pain. PMH reported: Concussion 6 yrs ago after being hip by door knob accidently. PT-OP-B Current Condition Start: 06/23/24 19:42 Freq: Status: Active Protocol: Document 06/30/24 13:48 LRN (Rec: 06/30/24 17:18 LRN [id number]) Current Condition History of Current Condition Onset Date May Current Complaints Pain in R shldr radiating up the neck. Increasing pain when not distracted History of Current Condition Pt states she is interested in having therapy for her R shoulder and neck pain, stating her back is not a problem anymore. Pt reports, maybe because of gardening she started to have throbbing R shoulder pain in the back and radiating up the neck. Her pain has caused her to adjust her sleeping position to mostly sleep on her R side. She c/o she can't sleep on her L side because of R shoulder pain. She reports 2 days ago her R shoulder was slammed by elevator doors, causing her pain to be of greater intensity and up the neck. Prior Treatments and Tests PT for previous shoulder therapy (caroline shoulders both and individual shoulders for pain), for unknown diagnosis (5-20 yrs ago). X-ray (06/03/24) indicates Moderate acromioclavicular glenohumeral arthritic change. Treatment Goals Patient/Caregiver Goals Pt goals: - not able to put weight on R shoulder to get out of bed comfortably using R arm to push self up (used to not have pain, now has pain. - Can't sit to watch TV for more than 10-15' w/o having to put R arm above head. - Pain with reaching out to side with R UE cooking or ironing rated 5/10. - Would like to be able to do home ex's to mitigate the pain . (used to go to ex class 3x/ wk, last time was in early May). 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 Baseline Function- Recreation/Hobbies Used to go to ex class 3x/wk. Baseline Function- Other Slept on both sides w/o pain. Able to get out of bed using R UE comfortably Current Functional Impairments (Reported) Functional Limitations- ADL's Needs help removing her vest. Difficulty getting out of bed due to R shoulder pain. 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 PT-OP-G Mobility & Gait Start: 06/23/24 19:42 Freq: Status: Active Protocol: Document 06/30/24 13:48 LRN (Rec: 06/30/24 17:18 LRN [id number]) OP Mobility Evaluation Bed Mobility Supine to and from Sit Independent, but R shoulder pain when pushing up with RUE. PT-OP-H Neuro Start: 06/23/24 19:42 Freq: Status: Active Protocol: Document 07/02/24 08:20 LRN (Rec: 07/02/24 09:06 LRN [id number]) Sensation Evaluation Gross Sensation Gross Sensation WNL Deep Tendon Reflex & Clonus Assessment Deep Tendon Reflex Right Brachioradialis Deep Tendon Reflex 1+ Diminished Left Brachioradialis Deep Tendon Reflex 0 Absent Bilateral Tricep Deep Tendon Reflex 0 Absent Right Bicep Deep Tendon Reflex 0 Absent Left Bicep Deep Tendon Reflex 2+ Normal PT-OP-J Posture/Palpation/Skin Start: 06/23/24 19:42 Freq: Status: Active Protocol: Document 06/30/24 13:48 LRN (Rec: 06/30/24 17:18 LRN [id number]) Posture Evaluation Position Standing Head/C-Spine Posture Forward Head Comments Posture Comments Trunk R shifted, L iliac crest is high, L hsoulder is kassidy, R shoulder retractied. neck straight, increased kyphosis, L side is body is posterior. down rotated and low on right, Palpation Assessment Location R shoulder Palpation Location Supraspinatus, infraspinatus Palpation Findings Muscle Guarding,Tenderness, Trigger Point R neck Palpation Location occiput to shouder (UT). Palpation Findings Muscle Guarding,Tenderness, Trigger Point PT-OP-K Range of Motion Start: 06/23/24 19:42 Freq: Status: Active Protocol: Document 06/30/24 13:48 LRN (Rec: 06/30/24 17:18 LRN [id number]) Cervical Spine Range of Motion Cervical Spine Active Percentage Flexion 100 Extension 100 Rotation Left 80 Rotation Right 80 Lateral Flexion Left 30 Lateral Flexion Right 45 ROM Limitations Soft Tissue Tightness Comments Stretch felt with R rot (60 deg's) Shoulder Goniometric Range of Motion Shoulder Right Active Testing Position Sitting Flexion 150 Abduction 157 External Rotation at 0 degrees Abduction 68 Comments ER reaching behind head to C7. Abduction: in scapular plane. Flexion is with elbow flexed (due to pain). Left Active Testing Position Sitting Flexion 147 Abduction 145 External Rotation at 0 degrees Abduction 50 Comments ER reaching behind head to T1. Abduction: in scapular plane. Hip Goniometric Range of Motion Hip Right Passive Testing Position Supine PT-OP-L Special Tests Start: 06/23/24 19:42 Freq: Status: Active Protocol: Document 06/30/24 13:48 LRN (Rec: 06/30/24 17:18 LRN [id number]) Special Tests Cervical Spine Special Tests Upper Limb Tension Test Test Results R UE: + median, + ulnar Traction Test Results - Spurling's Test Test Results + L SB Foraminal Compression Test Results - Shoulder Special Tests Elevation Impingement Test Results + R UE PT-OP-M Strength Start: 06/23/24 19:42 Freq: Status: Active Protocol: Document 06/30/24 13:48 LRN (Rec: 06/30/24 17:18 LRN [id number]) Shoulder Strength Shoulder Manual Muscle Testing Right Abduction (C5) 4 Good External Rotation 3 Fair Comments Generally 5/5 except as indicated above Left Comments Generally 5/5 PT-OP-Q Treatments Start: 06/23/24 19:42 Freq: Status: Active Protocol: Document 07/02/24 08:20 LRN (Rec: 07/02/24 09:06 LRN [id number]) Therapeutic Exercises Supine Exercises Scap retract/depress Side bilateral Reps/Minutes 5 SH x 3' Sidelying Exercises Shoulder ER Sidelying Exercise Name Active ER Side right Reps/Minutes 10x R shoulder IR stretch Sidelying Exercise Name Sleeper stretch, R>L Side bilateral Reps/Minutes 10 SH x 10 Comments Extra time taken to determine max mona stretch Sitting Exercises Shoulder rolls Sitting Exercise Name Fwd & bkwd Side bilateral Reps/Minutes 4' C. AROM stretch Sitting Exercise Name Rot & SB Side bilateral Reps/Minutes 13' Comments Extra time taken for review Manual Therapy Treatment Soft Tissue Mobilization R Levator Scap Body Location R Lev Scap at Scapula Mobilization Type Strumming Intensity/Depth Moderate Body Position Sit & supine Self-Care/Home Management Treatment Education Other Education Discussed posture and educated pt in correct sitting/ standing posture, with and w/o support Activities Self-Care/Home Management Activities Issued & reviewed handout for correct sitting posture and correct sit/standing posture, Issued & reviewed HEP: R sleeper stretch, shoulder rolls and depression/ retraction, & written I/S shoulder pinches. PT-OP-T Assessment and Plan Start: 06/23/24 19:42 Freq: Status: Active Protocol: Document 07/02/24 08:20 LRN (Rec: 07/02/24 09:06 LRN [id number]) Physical Therapy Assessment Rehab Potential Rehabilitation Potential Good Evaluation Complexity Number of Personal Factors/Comorbidities 3 or More Number of Body Systems Impaired 4 or More Clinical Presentation at Evaluation Evolving Impairments Impairments Activity Tolerance,Pain, Posture,ROM,Soft Tissue Mobility,Strength,Transfers Goals Four Impairment Painful R shoulder AROM (pain reaching out to side, rated 5/ 10) Short Term Goal (STG) Improve R rotator cuff stength to 4/5 with pt able to reach out to the side with pain no greater than 2/10. STG Duration 08/14/24 [facility] Goal (LTG) Improve function with pt able to reaching out to side with R UE to cook or ironing with pain no greater than 1/10 ( currently rated 5/10). 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 LTG Duration 09/25/24 Two Impairment R shoulder pain at rest, not tolerating >15', pain rated 7/ 10 Short Term Goal (STG) Pt will be educated in self care pain management techniques (positioning, modalities, ex) to be able to tolerate sitting to watch a 30 minute TV program with pain no greater than 4/10. 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 LTG Duration 09/25/24 One Impairment Pt lacks appropriate self care HEP. Short Term Goal (STG) Pt will be educated and will be able to position at nighttime to tolerate side sleeping on either side for a restful period of sleep. (Late entry) 06/30/24: I/S for nighttime head/R UE positioning. STG Duration 08/14/24 [facility] Goal (LTG) Pt will be independent in an effective self care HEP for R shoulder/RC/scapular stabilizers/mainly upper back strengthening and R shoulder mobility ex's in order to mitigate R shoulder pain. ( used to go to ex class 3x/wk, last time was in early May). 07/02/24: HEP: R sleeper stretch, shoulder rolls and depression/retraction, & written I/S shoulder pinches. LTG Duration 09/25/24 Assessment Summary Assessment R UE Sensation is normal, UE DTRs are decreased or absent; bilateral + forced flexion indicating impingement. Improved ability to sleep at night after nighttime positioning education. Today she had trP at R lev scap that was not resolved. Further monitoring for impingement R shoulder pain vs neck involvement. Physical Therapy Plan Frequency and Duration Frequency of Treatment 2x/Week Duration of treatment (weeks) 12 Plan of Care Start Date 06/30/24 Plan of Care End Date 09/25/24 Therapeutic Interventions Therapeutic Interventions Home Exercise Program,Manual Therapy,Neuromuscular Re- education,Self-Care/Home Management,Soft Tissue Mobilization,Therapeutic Activities,Therapeutic Exercises Modalities Cold Pack/Ice Massage,Electric Stimulation,Hot Packs Next Visit Focus/Plan Next Note Type Treatment Note Next Visit Plan Check VA, & other R shoulder special tests for impingement & Apley's ROM. Manual therapy of STM and trP treatments (R UT, Lev scap), & Cont postural strengthening ex's and RC ex' s. Possible dry needling session. Ther Ex for: R shoulder, neck, T/S, postue; Ther act for transfers. Modalities for pain and Education in self care and HEP (juárez milk). POC: Therapeutic Ex ( strengthening/ROM), Therapeutic Activity (transfer training), manual therapy ( STM), Pt Education (HEP, Edema and pain mgmt).
--- NOTE | 2024-07-06 15:16 | PT.OTN ---
Current Diagnoses Pain in right shoulder (07/06/24) Lumbago with sciatica, unspecified side (07/06/24) Other shoulder lesions, right shoulder (07/06/24) Physical Therapy Treatment Note PT-OP-A Visit Information Start: 06/23/24 19:42 Freq: Status: Active Protocol: Document 07/06/24 14:30 SP (Rec: 07/06/24 15:33 SP [id number]) Out-Patient Physical Therapy Visit Information Visit Information Visit Type Treatment Note Visit Start Time 14:30 Visit Stop Time 15:16 Visit Number 3 Number of MR TEACHER Visits 1 Evaluation Information Evaluation Date 06/30/24 Precautions Precautions Osteopenia, scoliosis, arthritis, thyroid disorder, history of caroline shoulder, & back pain. PMH reported: Concussion 6 yrs ago after being hip by door knob accidently. PT-OP-B Current Condition Start: 06/23/24 19:42 Freq: Status: Active Protocol: Document 06/30/24 13:48 LRN (Rec: 06/30/24 17:18 LRN [id number]) Current Condition History of Current Condition Onset Date May Current Complaints Pain in R shldr radiating up the neck. Increasing pain when not distracted History of Current Condition Pt states she is interested in having therapy for her R shoulder and neck pain, stating her back is not a problem anymore. Pt reports, maybe because of gardening she started to have throbbing R shoulder pain in the back and radiating up the neck. Her pain has caused her to adjust her sleeping position to mostly sleep on her R side. She c/o she can't sleep on her L side because of R shoulder pain. She reports 2 days ago her R shoulder was slammed by elevator doors, causing her pain to be of greater intensity and up the neck. Prior Treatments and Tests PT for previous shoulder therapy (caroline shoulders both and individual shoulders for pain), for unknown diagnosis (5-20 yrs ago). X-ray (06/03/24) indicates Moderate acromioclavicular glenohumeral arthritic change. Treatment Goals Patient/Caregiver Goals Pt goals: - not able to put weight on R shoulder to get out of bed comfortably using R arm to push self up (used to not have pain, now has pain. - Can't sit to watch TV for more than 10-15' w/o having to put R arm above head. - Pain with reaching out to side with R UE cooking or ironing rated 5/10. - Would like to be able to do home ex's to mitigate the pain . (used to go to ex class 3x/ wk, last time was in early May). 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 Baseline Function- Recreation/Hobbies Used to go to ex class 3x/wk. Baseline Function- Other Slept on both sides w/o pain. Able to get out of bed using R UE comfortably Current Functional Impairments (Reported) Functional Limitations- ADL's Needs help removing her vest. Difficulty getting out of bed due to R shoulder pain. 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 She stated after last tx she did her exercise class yesterday and some gardening without pain and felt pretty good but also took Tylenol and utilized CP after gardening for prevention . Is practicing postural alignment and lumbar extension cuvature support needed. She states was in meetings alot with arm lower than table height today so R lateral neck sore. PT-OP-G Mobility & Gait Start: 06/23/24 19:42 Freq: Status: Active Protocol: Document 06/30/24 13:48 LRN (Rec: 06/30/24 17:18 LRN [id number]) OP Mobility Evaluation Bed Mobility Supine to and from Sit Independent, but R shoulder pain when pushing up with RUE. PT-OP-H Neuro Start: 06/23/24 19:42 Freq: Status: Active Protocol: Document 07/02/24 08:20 LRN (Rec: 07/02/24 09:06 LRN [id number]) Sensation Evaluation Gross Sensation Gross Sensation WNL Deep Tendon Reflex & Clonus Assessment Deep Tendon Reflex Right Brachioradialis Deep Tendon Reflex 1+ Diminished Left Brachioradialis Deep Tendon Reflex 0 Absent Bilateral Tricep Deep Tendon Reflex 0 Absent Right Bicep Deep Tendon Reflex 0 Absent Left Bicep Deep Tendon Reflex 2+ Normal PT-OP-J Posture/Palpation/Skin Start: 06/23/24 19:42 Freq: Status: Active Protocol: Document 06/30/24 13:48 LRN (Rec: 06/30/24 17:18 LRN [id number]) Posture Evaluation Position Standing Head/C-Spine Posture Forward Head Comments Posture Comments Trunk R shifted, L iliac crest is high, L hsoulder is kassidy, R shoulder retractied. neck straight, increased kyphosis, L side is body is posterior. down rotated and low on right, Palpation Assessment Location R shoulder Palpation Location Supraspinatus, infraspinatus Palpation Findings Muscle Guarding,Tenderness, Trigger Point R neck Palpation Location occiput to shouder (UT). Palpation Findings Muscle Guarding,Tenderness, Trigger Point PT-OP-K Range of Motion Start: 06/23/24 19:42 Freq: Status: Active Protocol: Document 06/30/24 13:48 LRN (Rec: 06/30/24 17:18 LRN [id number]) Cervical Spine Range of Motion Cervical Spine Active Percentage Flexion 100 Extension 100 Rotation Left 80 Rotation Right 80 Lateral Flexion Left 30 Lateral Flexion Right 45 ROM Limitations Soft Tissue Tightness Comments Stretch felt with R rot (60 deg's) Shoulder Goniometric Range of Motion Shoulder Right Active Testing Position Sitting Flexion 150 Abduction 157 External Rotation at 0 degrees Abduction 68 Comments ER reaching behind head to C7. Abduction: in scapular plane. Flexion is with elbow flexed (due to pain). Left Active Testing Position Sitting Flexion 147 Abduction 145 External Rotation at 0 degrees Abduction 50 Comments ER reaching behind head to T1. Abduction: in scapular plane. Hip Goniometric Range of Motion Hip Right Passive Testing Position Supine PT-OP-L Special Tests Start: 06/23/24 19:42 Freq: Status: Active Protocol: Document 06/30/24 13:48 LRN (Rec: 06/30/24 17:18 LRN [id number]) Special Tests Cervical Spine Special Tests Upper Limb Tension Test Test Results R UE: + median, + ulnar Traction Test Results - Spurling's Test Test Results + L SB Foraminal Compression Test Results - Shoulder Special Tests Elevation Impingement Test Results + R UE PT-OP-M Strength Start: 06/23/24 19:42 Freq: Status: Active Protocol: Document 06/30/24 13:48 LRN (Rec: 06/30/24 17:18 LRN [id number]) Shoulder Strength Shoulder Manual Muscle Testing Right Abduction (C5) 4 Good External Rotation 3 Fair Comments Generally 5/5 except as indicated above Left Comments Generally 5/5 PT-OP-Q Treatments Start: 06/23/24 19:42 Freq: Status: Active Protocol: Document 07/06/24 14:30 SP (Rec: 07/06/24 15:33 SP [id number]) Therapeutic Exercises Sidelying Exercises Shoulder ER Sidelying Exercise Name Active ER Side right Resistance AROM Reps/Minutes 10x Comments tactile cue LT, Rhomboid R shoulder IR stretch Sidelying Exercise Name Sleeper stretch, R>L Side bilateral Reps/Minutes 10 SH x 10 Comments Cued humerus angle 45 deg max mona stretch, toward belly not table Sitting Exercises open book Sitting Exercise Name trialed in PT (long vs short lever arm) Side right Equipment Used tacile cues Low trap. Reps/Minutes 2 reps each Comments stopped pinch feeling distal UT & deltoid area, challenge no UT recruitment Shoulder rolls Sitting Exercise Name Fwd & bkwd Side bilateral Reps/Minutes 10 reps each Comments cued tall posture open c C. AROM stretch Sitting Exercise Name Rot & SB Side bilateral Reps/Minutes 5 SH x10 Comments Extra time taken for review Standing Exercises wall posture Standing Exercise Name added to HEP/c HO Equipment Used rolled pillowcase behind head Reps/Minutes 5 SH x10 Comments LB toward wall Other Exercises Self STMs Other Exercise Name theracane posterior neck, ball wall UT superior scap Side right Comments MWM head turns/nods-good feedback response, sebastián del real Manual Therapy Treatment Consent Patient gave verbal consent for manual Yes treatment Soft Tissue Mobilization R Shld Body Location pec major, prox bicep Mobilization Type Rolling Body Position Supine Comments RUE pillow supported R Levator Scap Body Location R Lev Scap at Scapula Mobilization Type Strumming Intensity/Depth Moderate Body Position Supine Self-Care/Home Management Treatment Education Other Education anatomy, posture, CS retraction, thercane, ball wall PT-OP-T Assessment and Plan Start: 06/23/24 19:42 Freq: Status: Active Protocol: Document 07/06/24 14:30 SP (Rec: 07/06/24 15:33 SP [id number]) Physical Therapy Assessment Goals Four Impairment Painful R shoulder AROM (pain reaching out to side, rated 5/ 10) Short Term Goal (STG) Improve R rotator cuff stength to 4/5 with pt able to reach out to the side with pain no greater than 2/10. STG Duration 08/14/24 Jewelry Designer Goal (LTG) Improve function with pt able to reaching out to side with R UE to cook or ironing with pain no greater than 1/10 ( currently rated 5/10). LTG Duration 09/25/24 Three Impairment R shoulder pain with UE WBing (transferring out of bed) Jewelry Designer Goal (LTG) Improve R shoulder strength with pt able to perform transfers out of bed at prior level of function of being able to weightbear on R shoulder to get out of bed comfortably, using R arm to push self up. LTG Duration 09/25/24 Two Impairment R shoulder pain at rest, not tolerating >15', pain rated 7/ 10 Short Term Goal (STG) Pt will be educated in self care pain management techniques (positioning, modalities, ex) to be able to tolerate sitting to watch a 30 minute TV program with pain no greater than 4/10. STG Duration 08/14/24 Jewelry Designer Goal (LTG) Decrease R shoulder pain to no greater than 1/10 with pt able to sit to watch a 30-60 long TV program w/o having to put R arm above head for pain relief. LTG Duration 09/25/24 One Impairment Pt lacks appropriate self care HEP. Short Term Goal (STG) Pt will be educated and will be able to position at nighttime to tolerate side sleeping on either side for a restful period of sleep. (Late entry) 06/30/24: I/S for nighttime head/R UE positioning. 07/06/24: ed use pillows support under R UE and BLEs hooklying. STG Duration 08/14/24 progressing 07/06/24 Usp Goal (LTG) Pt will be independent in an effective self care HEP for R shoulder/RC/scapular stabilizers/mainly upper back strengthening and R shoulder mobility ex's in order to mitigate R shoulder pain. ( used to go to ex class 3x/wk, last time was in early May). 07/02/24: HEP: R sleeper stretch, shoulder rolls and depression/retraction, & written I/S shoulder pinches. 07/06/24: added HEP: wall posture, self STMs post neck and UT ball on wall. LTG Duration 09/25/24 progressing 07/06/24 Assessment Summary Assessment Pt reports decreased tension post manual, improved postural alignment use wall and ed anatomy and body positioning. Cues for set up and direction movement during R IR stretch. Improved less tension ed and use theracane, might borrow daughter's S cane. Pt would benefit from initiating RTC ex next tx. Physical Therapy Plan Frequency and Duration Frequency of Treatment 2x/Week Duration of treatment (weeks) 12 Plan of Care Start Date 06/30/24 Plan of Care End Date 09/25/24 Therapeutic Interventions Therapeutic Interventions Home Exercise Program,Manual Therapy,Neuromuscular Re- education,Self-Care/Home Management,Soft Tissue Mobilization,Therapeutic Activities,Therapeutic Exercises Modalities Cold Pack/Ice Massage,Electric Stimulation,Hot Packs Next Visit Focus/Plan Next Note Type Treatment Note Next Visit Plan Check VA, & other R shoulder special tests for impingement & Apley's ROM. Manual therapy of STM and trP treatments (R UT, Lev scap), & Cont postural strengthening ex's and RC ex' s. * Possible dry needling session. Ther Ex for: R shoulder, neck, T/S, postue; Ther act for transfers. Modalities for pain and Education in self care and HEP (juárez milk). POC: Therapeutic Ex ( strengthening/ROM), Therapeutic Activity (transfer training), manual therapy ( STM), Pt Education (HEP, Edema and pain mgmt).
--- NOTE | 2024-07-08 15:24 | PT.OTN ---
Current Diagnoses Pain in right shoulder (07/08/24) Lumbago with sciatica, unspecified side (07/08/24) Other shoulder lesions, right shoulder (07/08/24) Physical Therapy Treatment Note PT-OP-A Visit Information Start: 06/23/24 19:42 Freq: Status: Active Protocol: Document 07/08/24 14:34 SP (Rec: 07/08/24 15:56 SP [id number]) Out-Patient Physical Therapy Visit Information Visit Information Visit Type Treatment Note Visit Start Time 14:34 Visit Stop Time 15:24 Visit Number 4 Number of BLOOD TYPER Visits 2 Evaluation Information Evaluation Date 06/30/24 Precautions Precautions Osteopenia, scoliosis, arthritis, thyroid disorder, history of caroline shoulder, & back pain. PMH reported: Concussion 6 yrs ago after being hip by door knob accidently. PT-OP-B Current Condition Start: 06/23/24 19:42 Freq: Status: Active Protocol: Document 06/30/24 13:48 LRN (Rec: 06/30/24 17:18 LRN [id number]) Current Condition History of Current Condition Onset Date May Current Complaints Pain in R shldr radiating up the neck. Increasing pain when not distracted History of Current Condition Pt states she is interested in having therapy for her R shoulder and neck pain, stating her back is not a problem anymore. Pt reports, maybe because of gardening she started to have throbbing R shoulder pain in the back and radiating up the neck. Her pain has caused her to adjust her sleeping position to mostly sleep on her R side. She c/o she can't sleep on her L side because of R shoulder pain. She reports 2 days ago her R shoulder was slammed by elevator doors, causing her pain to be of greater intensity and up the neck. Prior Treatments and Tests PT for previous shoulder therapy (caroline shoulders both and individual shoulders for pain), for unknown diagnosis (5-20 yrs ago). X-ray (06/03/24) indicates Moderate acromioclavicular glenohumeral arthritic change. Treatment Goals Patient/Caregiver Goals Pt goals: - not able to put weight on R shoulder to get out of bed comfortably using R arm to push self up (used to not have pain, now has pain. - Can't sit to watch TV for more than 10-15' w/o having to put R arm above head. - Pain with reaching out to side with R UE cooking or ironing rated 5/10. - Would like to be able to do home ex's to mitigate the pain . (used to go to ex class 3x/ wk, last time was in early May). 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 Baseline Function- Recreation/Hobbies Used to go to ex class 3x/wk. Baseline Function- Other Slept on both sides w/o pain. Able to get out of bed using R UE comfortably Current Functional Impairments (Reported) Functional Limitations- ADL's Needs help removing her vest. Difficulty getting out of bed due to R shoulder pain. 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 Using pillow for support at night and helping and can use her R arm to push self to sitting when gets up. Is acquiring her daughter's theracane soon but didn't. PT-OP-G Mobility & Gait Start: 06/23/24 19:42 Freq: Status: Active Protocol: Document 06/30/24 13:48 LRN (Rec: 06/30/24 17:18 LRN [id number]) OP Mobility Evaluation Bed Mobility Supine to and from Sit Independent, but R shoulder pain when pushing up with RUE. PT-OP-H Neuro Start: 06/23/24 19:42 Freq: Status: Active Protocol: Document 07/02/24 08:20 LRN (Rec: 07/02/24 09:06 LRN [id number]) Sensation Evaluation Gross Sensation Gross Sensation WNL Deep Tendon Reflex & Clonus Assessment Deep Tendon Reflex Right Brachioradialis Deep Tendon Reflex 1+ Diminished Left Brachioradialis Deep Tendon Reflex 0 Absent Bilateral Tricep Deep Tendon Reflex 0 Absent Right Bicep Deep Tendon Reflex 0 Absent Left Bicep Deep Tendon Reflex 2+ Normal PT-OP-J Posture/Palpation/Skin Start: 06/23/24 19:42 Freq: Status: Active Protocol: Document 06/30/24 13:48 LRN (Rec: 06/30/24 17:18 LRN [id number]) Posture Evaluation Position Standing Head/C-Spine Posture Forward Head Comments Posture Comments Trunk R shifted, L iliac crest is high, L hsoulder is kassidy, R shoulder retractied. neck straight, increased kyphosis, L side is body is posterior. down rotated and low on right, Palpation Assessment Location R shoulder Palpation Location Supraspinatus, infraspinatus Palpation Findings Muscle Guarding,Tenderness, Trigger Point R neck Palpation Location occiput to shouder (UT). Palpation Findings Muscle Guarding,Tenderness, Trigger Point PT-OP-K Range of Motion Start: 06/23/24 19:42 Freq: Status: Active Protocol: Document 06/30/24 13:48 LRN (Rec: 06/30/24 17:18 LRN [id number]) Cervical Spine Range of Motion Cervical Spine Active Percentage Flexion 100 Extension 100 Rotation Left 80 Rotation Right 80 Lateral Flexion Left 30 Lateral Flexion Right 45 ROM Limitations Soft Tissue Tightness Comments Stretch felt with R rot (60 deg's) Shoulder Goniometric Range of Motion Shoulder Right Active Testing Position Sitting Flexion 150 Abduction 157 External Rotation at 0 degrees Abduction 68 Comments ER reaching behind head to C7. Abduction: in scapular plane. Flexion is with elbow flexed (due to pain). Left Active Testing Position Sitting Flexion 147 Abduction 145 External Rotation at 0 degrees Abduction 50 Comments ER reaching behind head to T1. Abduction: in scapular plane. Hip Goniometric Range of Motion Hip Right Passive Testing Position Supine PT-OP-L Special Tests Start: 06/23/24 19:42 Freq: Status: Active Protocol: Document 06/30/24 13:48 LRN (Rec: 06/30/24 17:18 LRN [id number]) Special Tests Cervical Spine Special Tests Upper Limb Tension Test Test Results R UE: + median, + ulnar Traction Test Results - Spurling's Test Test Results + L SB Foraminal Compression Test Results - Shoulder Special Tests Elevation Impingement Test Results + R UE PT-OP-M Strength Start: 06/23/24 19:42 Freq: Status: Active Protocol: Document 06/30/24 13:48 LRN (Rec: 06/30/24 17:18 LRN [id number]) Shoulder Strength Shoulder Manual Muscle Testing Right Abduction (C5) 4 Good External Rotation 3 Fair Comments Generally 5/5 except as indicated above Left Comments Generally 5/5 PT-OP-Q Treatments Start: 06/23/24 19:42 Freq: Status: Active Protocol: Document 07/08/24 14:34 SP (Rec: 07/08/24 15:56 SP [id number]) Therapeutic Exercises Sidelying Exercises open book Sidelying Exercise Name trialed in PT (long vs short lever arm) Side right Resistance tacile cues Low trap. Equipment Used correction 07/06 performed sidelying not seated Reps/Minutes 2 reps Comments stopped pinch feeling distal UT & deltoid area, challenge no UT recruitment Shoulder ER Sidelying Exercise Name Active ER Side right Resistance AROM Reps/Minutes 10x Comments tactile cue LT, Rhomboid R shoulder IR stretch Sidelying Exercise Name Sleeper stretch, R>L ( sidelying more effective than standing at wall trial) Side bilateral Reps/Minutes 10 SH x 10 Comments Cued humerus angle 45 deg max mona stretch, toward belly not table Sitting Exercises Shoulder rolls Sitting Exercise Name Fwd & bkwd Side bilateral Reps/Minutes 10 reps each Comments good form Standing Exercises resisted shld ER Standing Exercise Name trialed in PT and added to HEP /c HO Side bilateral Resistance TB #1 light blue Reps/Minutes 2 SH x10 reps Comments cued posture, CS retracted neutral resisted shld ext Standing Exercise Name trialed in PT and added to HEP /c HO Side bilateral Resistance Tb #1 light blue Reps/Minutes x10 Comments cued posture, CS retraction neutral, hand to side thighs, open chest wall posture Standing Exercise Name trialed /c ER (hold) Equipment Used rolled small towel behind head Reps/Minutes 5 SH x10 Comments LB toward wall, tension anterior R shld ER-DC Other Exercises Self STMs Other Exercise Name theracane posterior neck, ball wall UT superior scap Side right Equipment Used MWM head turns/nods-good feedback response, will borrow daughters Comments good feedback light pressure helped decreased R UT & LS tension Therapeutic Activity Therapeutic Activity gardening body mechanics Name 1/2 kneel and quadruped Comments cued hip hinge, not round back , wt shift pulling weeds postural training Name seated Comments sit front sit, feet on floor, elevated posture, neutral pelvis and cervical retraction neutral /c slight nod. transfer training Name sit<>SL<>supine Comments instruction log roll technique onto side sit>supine use UE transition right trunk to sitting. PT-OP-T Assessment and Plan Start: 06/23/24 19:42 Freq: Status: Active Protocol: Document 07/08/24 14:34 SP (Rec: 07/08/24 15:56 SP [id number]) Physical Therapy Assessment Goals Four Impairment Painful R shoulder AROM (pain reaching out to side, rated 5/ 10) Short Term Goal (STG) Improve R rotator cuff stength to 4/5 with pt able to reach out to the side with pain no greater than 2/10. STG Duration 08/14/24 Prison Goal (LTG) Improve function with pt able to reaching out to side with R UE to cook or ironing with pain no greater than 1/10 ( currently rated 5/10). LTG Duration 09/25/24 Three Impairment R shoulder pain with UE WBing (transferring out of bed) Prison Goal (LTG) Improve R shoulder strength with pt able to perform transfers out of bed at prior level of function of being able to weightbear on R shoulder to get out of bed comfortably, using R arm to push self up. LTG Duration 09/25/24 Two Impairment R shoulder pain at rest, not tolerating >15', pain rated 7/ 10 Short Term Goal (STG) Pt will be educated in self care pain management techniques (positioning, modalities, ex) to be able to tolerate sitting to watch a 30 minute TV program with pain no greater than 4/10. STG Duration 08/14/24 Prison Goal (LTG) Decrease R shoulder pain to no greater than 1/10 with pt able to sit to watch a 30-60 long TV program w/o having to put R arm above head for pain relief. LTG Duration 09/25/24 One Impairment Pt lacks appropriate self care HEP. Short Term Goal (STG) Pt will be educated and will be able to position at nighttime to tolerate side sleeping on either side for a restful period of sleep. (Late entry) 06/30/24: I/S for nighttime head/R UE positioning. 07/06/24: ed use pillows support under R UE and BLEs hooklying. STG Duration 08/14/24 progressing 07/06/24 Composite Laminator Goal (LTG) Pt will be independent in an effective self care HEP for R shoulder/RC/scapular stabilizers/mainly upper back strengthening and R shoulder mobility ex's in order to mitigate R shoulder pain. ( used to go to ex class 3x/wk, last time was in early May). 07/02/24: HEP: R sleeper stretch, shoulder rolls and depression/retraction, & written I/S shoulder pinches. 07/06/24: added HEP: wall posture, self STMs post neck and UT ball on wall.\ 07/08/24: added resisted shld ER and extension, self STMs use theracane and ball on wall . LTG Duration 09/25/24 progressing 07/08/24 Assessment Summary Assessment Pt responded well during instruction proper placement and use of theracane and tennis ball in pillow case on wall STMs pressure comforting. Pt improves form sidlying ER AROM and added shld ER against TB for added HEP with tactile cues for rhomboid and LT engagement to inhibit anterior shld tension recruitment. Reviewed body mechanics transfers, sitting with self corrections, wall posture then carryover gardening spinal alignment with wt shift between BLEs reduction over use UEs. Physical Therapy Plan Frequency and Duration Frequency of Treatment 2x/Week Duration of treatment (weeks) 12 Plan of Care Start Date 06/30/24 Plan of Care End Date 09/25/24 Therapeutic Interventions Therapeutic Interventions Home Exercise Program,Manual Therapy,Neuromuscular Re- education,Self-Care/Home Management,Soft Tissue Mobilization,Therapeutic Activities,Therapeutic Exercises Modalities Cold Pack/Ice Massage,Electric Stimulation,Hot Packs Next Visit Focus/Plan Next Note Type Treatment Note Next Visit Plan Recheck response to ther ex/ HEP /c TB, self STMs, wall posture. POC: Check VA, & other R shoulder special tests for impingement & Apley's ROM. Manual therapy of STM and trP treatments (R UT, Lev scap), & Cont postural strengthening ex's and RC ex's. * Possible dry needling session. Ther Ex for: R shoulder, neck, T/S, postue; Ther act for transfers . Modalities for pain and Education in self care and HEP (juárez milk). POC: Therapeutic Ex ( strengthening/ROM), Therapeutic Activity (transfer training), manual therapy ( STM), Pt Education (HEP, Edema and pain mgmt).
--- NOTE | 2024-07-14 16:06 | PT.OTN ---
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 PMH reported: Concussion 6 yrs ago after being hip by door knob accidently. PT-OP-B Current Condition Start: 06/23/24 19:42 Freq: Status: Active Protocol: Document 06/30/24 13:48 LRN (Rec: 06/30/24 17:18 LRN [id number]) Current Condition History of Current Condition Onset Date May Current Complaints Pain in R shldr radiating up the neck. Increasing pain when not distracted History of Current Condition Pt states she is interested in having therapy for her R shoulder and neck pain, stating her back is not a problem anymore. Pt reports, maybe because of gardening she started to have throbbing R shoulder pain in the back and radiating up the neck. Her pain has caused her to adjust her sleeping position to mostly sleep on her R side. She c/o she can't sleep on her L side because of R shoulder pain. She reports 2 days ago her R shoulder was slammed by elevator doors, causing her pain to be of greater intensity and up the neck. Prior Treatments and Tests PT for previous shoulder therapy (caroline shoulders both and individual shoulders for pain), for unknown diagnosis (5-20 yrs ago). X-ray (06/03/24) indicates Moderate acromioclavicular glenohumeral arthritic change. Treatment Goals Patient/Caregiver Goals Pt goals: - not able to put weight on R shoulder to get out of bed comfortably using R arm to push self up (used to not have pain, now has pain. - Can't sit to watch TV for more than 10-15' w/o having to put R arm above head. - Pain with reaching out to side with R UE cooking or ironing rated 5/10. - Would like to be able to do home ex's to mitigate the pain . (used to go to ex class 3x/ wk, last time was in early May). 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 Baseline Function- Recreation/Hobbies Used to go to ex class 3x/wk. Baseline Function- Other Slept on both sides w/o pain. Able to get out of bed using R UE comfortably Current Functional Impairments (Reported) Functional Limitations- ADL's Needs help removing her vest. Difficulty getting out of bed due to R shoulder pain. 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 Did an ex class and arm feels better after ex. Driving back from [place], the arm aches. Did 2 puzzles back to back and the neck stopped hurting. When she is distracted, the arm doesn't hurt. Gardens but in evening when arm is in one place it aches. Able to sleep, once up it takes 1/2 hr before it stops hurting. Feels posture has improved. Has done all ex 's. Raising arm in the air reduces the pressure. Less difficult getting top off/on. Going to [place] in Aug and has more gardening to do. PT-OP-G Mobility & Gait Start: 06/23/24 19:42 Freq: Status: Active Protocol: Document 06/30/24 13:48 LRN (Rec: 06/30/24 17:18 LRN [id number]) OP Mobility Evaluation Bed Mobility Supine to and from Sit Independent, but R shoulder pain when pushing up with RUE. PT-OP-H Neuro Start: 06/23/24 19:42 Freq: Status: Active Protocol: Document 07/02/24 08:20 LRN (Rec: 07/02/24 09:06 LRN [id number]) Sensation Evaluation Gross Sensation Gross Sensation WNL Deep Tendon Reflex & Clonus Assessment Deep Tendon Reflex Right Brachioradialis Deep Tendon Reflex 1+ Diminished Left Brachioradialis Deep Tendon Reflex 0 Absent Bilateral Tricep Deep Tendon Reflex 0 Absent Right Bicep Deep Tendon Reflex 0 Absent Left Bicep Deep Tendon Reflex 2+ Normal PT-OP-J Posture/Palpation/Skin Start: 06/23/24 19:42 Freq: Status: Active Protocol: Document 06/30/24 13:48 LRN (Rec: 06/30/24 17:18 LRN [id number]) Posture Evaluation Position Standing Head/C-Spine Posture Forward Head Comments Posture Comments Trunk R shifted, L iliac crest is high, L hsoulder is kassidy, R shoulder retractied. neck straight, increased kyphosis, L side is body is posterior. down rotated and low on right, Palpation Assessment Location R shoulder Palpation Location Supraspinatus, infraspinatus Palpation Findings Muscle Guarding,Tenderness, Trigger Point R neck Palpation Location occiput to shouder (UT). Palpation Findings Muscle Guarding,Tenderness, Trigger Point PT-OP-K Range of Motion Start: 06/23/24 19:42 Freq: Status: Active Protocol: Document 06/30/24 13:48 LRN (Rec: 06/30/24 17:18 LRN [id number]) Cervical Spine Range of Motion Cervical Spine Active Percentage Flexion 100 Extension 100 Rotation Left 80 Rotation Right 80 Lateral Flexion Left 30 Lateral Flexion Right 45 ROM Limitations Soft Tissue Tightness Comments Stretch felt with R rot (60 deg's) Shoulder Goniometric Range of Motion Shoulder Right Active Testing Position Sitting Flexion 150 Abduction 157 External Rotation at 0 degrees Abduction 68 Comments ER reaching behind head to C7. Abduction: in scapular plane. Flexion is with elbow flexed (due to pain). Left Active Testing Position Sitting Flexion 147 Abduction 145 External Rotation at 0 degrees Abduction 50 Comments ER reaching behind head to T1. Abduction: in scapular plane. Hip Goniometric Range of Motion Hip Right Passive Testing Position Supine PT-OP-L Special Tests Start: 06/23/24 19:42 Freq: Status: Active Protocol: Document 06/30/24 13:48 LRN (Rec: 06/30/24 17:18 LRN [id number]) Special Tests Cervical Spine Special Tests Upper Limb Tension Test Test Results R UE: + median, + ulnar Traction Test Results - Spurling's Test Test Results + L SB Foraminal Compression Test Results - Shoulder Special Tests Elevation Impingement Test Results + R UE PT-OP-M Strength Start: 06/23/24 19:42 Freq: Status: Active Protocol: Document 06/30/24 13:48 LRN (Rec: 06/30/24 17:18 LRN [id number]) Shoulder Strength Shoulder Manual Muscle Testing Right Abduction (C5) 4 Good External Rotation 3 Fair Comments Generally 5/5 except as indicated above Left Comments Generally 5/5 PT-OP-Q Treatments Start: 06/23/24 19:42 Freq: Status: Active Protocol: Document 07/14/24 12:57 LRN (Rec: 07/14/24 13:46 LRN [id number]) Therapeutic Exercises Supine Exercises Neck Extension Supine Exercise Name Towel roll under neck for extension Reps/Minutes 10x Comments I/S pt to hold on ex due to increase in R arm ache. Neck Elongation Supine Exercise Name Neck Elongation - towel roll under neck. Reps/Minutes 5 SH x 10, twice (6') Therapeutic Activity Therapeutic Activity Nighttime positional trng Name Supine and L sidelie positioning w/pillows & towel rolls. Reps/Minutes 9' Comments Use of MH to R shoulder, multiple pillows, rolled towel under neck, and folded towel under R arm during positional training. In sidelie focus on trng of head on shoulders positional posturing (neck elongation) and arm supported to not drop forward. Manual Therapy Treatment Soft Tissue Mobilization Cervical Paraspinals Body Location R Cervical paraspinal, briefly UT Mobilization Type Strumming Intensity/Depth Moderate Body Position Hooklying Manual Traction Cervical Details Intermittent Axial traction of gentle pull, only enough to relieve pain. Body Position Hooklying Reps/Duration 8' 2nd time 3' to relieve pain from neck ext Comments Note: pt reports osteopenia. Self-Care/Home Management Treatment Education Other Education Verbally reviewed pt's home ex 's and her activities she is doing. Recommended pt stop lifting objects of medium to heavy weight, not garden with head down positioning and carry groceries in spurts. Discussed pain mgmt of R shoulder/arm using heat and positioning in supine and sidelie in position of comfort . Discussed use posturing for sleeping in supine and L sidelie, but to avoid R sidelie. Discussed positioning head/ shoulder positioning at rest in sitting to prevent forward head posturing and falling asleep. PT-OP-T Assessment and Plan Start: 06/23/24 19:42 Freq: Status: Active Protocol: Document 07/14/24 12:57 LRN (Rec: 07/14/24 13:46 LRN [id number]) Physical Therapy Assessment Goals Four Impairment Painful R shoulder AROM (pain reaching out to side, rated 5/ 10) Short Term Goal (STG) Improve R rotator cuff stength to 4/5 with pt able to reach out to the side with pain no greater than 2/10. STG Duration 08/14/24 Trucking Contractor Goal (LTG) Improve function with pt able to reaching out to side with R UE to cook or ironing with pain no greater than 1/10 ( currently rated 5/10). LTG Duration 09/25/24 Three Impairment R shoulder pain with UE WBing (transferring out of bed) Trucking Contractor Goal (LTG) Improve R shoulder strength with pt able to perform transfers out of bed at prior level of function of being able to weightbear on R shoulder to get out of bed comfortably, using R arm to push self up. LTG Duration 09/25/24 Two Impairment R shoulder pain at rest, not tolerating >15', pain rated 7/ 10 Short Term Goal (STG) Pt will be educated in self care pain management techniques (positioning, modalities, ex) to be able to tolerate sitting to watch a 30 minute TV program with pain no greater than 4/10. STG Duration 08/14/24 Trucking Contractor Goal (LTG) Decrease R shoulder pain to no greater than 1/10 with pt able to sit to watch a 30-60 long TV program w/o having to put R arm above head for pain relief. LTG Duration 09/25/24 One Impairment Pt lacks appropriate self care HEP. Short Term Goal (STG) Pt will be educated and will be able to position at nighttime to tolerate side sleeping on either side for a restful period of sleep. (Late entry) 06/30/24: I/S for nighttime head/R UE positioning. 07/06/24: ed use pillows support under R UE and BLEs hooklying. 07/14/24: Pt having more restful sleep. STG Duration 08/14/24 progressing 07/14/24 Senior Care Goal (LTG) Pt will be independent in an effective self care HEP for R shoulder/RC/scapular stabilizers/mainly upper back strengthening and R shoulder mobility ex's in order to mitigate R shoulder pain. ( used to go to ex class 3x/wk, last time was in early May). 07/02/24: HEP: R sleeper stretch, shoulder rolls and depression/retraction, & written I/S shoulder pinches. 07/06/24: added HEP: wall posture, self STMs post neck and UT ball on wall.\ 07/08/24: added resisted shld ER and extension, self STMs use theracane and ball on wall . LTG Duration 09/25/24 progressing 07/08/24 Assessment Summary Assessment Pt is 79 yo female who initially presented with R RC dysfunction, but today presents with C/S radiculopathy, with + manual traction test. Manual C. tx w /MH to shoulder and best practice positioning in supine and L sidelie resulted in pain decrease from 7/10 at start to 0/10 at end. Pt presented with poor awareness of posturing after treatment and needed cuing to elongate neck and improve posture. Need to hold on RC strengthening and instead focus on reducing R shoulder pain by correcting neck stability and posture. Physical Therapy Plan Frequency and Duration Frequency of Treatment 2x/Week Duration of treatment (weeks) 12 Plan of Care Start Date 06/30/24 Plan of Care End Date 09/25/24 Next Visit Focus/Plan Next Note Type Treatment Note Next Visit Plan Cont w/wall posture for correct head/neck posture to reduce C/S radicular pain. Pt may need help with problem solving for positioning at home to reduce R arm pain at rest. Pt to try heat when at rest. [facility] radicul[facility], [facility]. Educ: educate in self care pain management techniques ( positioning, modalities, ex) to be able to tolerate sitting for longer periods. POC: Monitor for R shoulder impingement, neural tension & Apley's ROM. Manual therapy of STM (R UT, Lev scap), & Cont neck/shoulder postural stabilization and hold on RC strengthening unless not irritating after exercise. Ther Ex for: R shoulder/ neck stability, T/S mobility, & improve posture (for trip to [place] in Dec; Modalities for pain and Education in self care and HEP (juárez milk).
--- NOTE | 2024-07-17 13:46 | PT.OTN ---
Current Diagnoses Pain in right shoulder (07/17/24) Lumbago with sciatica, unspecified side (07/17/24) Other shoulder lesions, right shoulder (07/17/24) Physical Therapy Treatment Note PT-OP-A Visit Information Start: 06/23/24 19:42 Freq: Status: Active Protocol: Document 07/17/24 13:01 SP (Rec: 07/17/24 13:49 SP [id number]) Out-Patient Physical Therapy Visit Information Visit Information Visit Type Treatment Note Visit Note Pt is going out of town soon to [facility]- will need PN when returns with PT. Visit Start Time 13:01 Visit Stop Time 13:46 Visit Number 6 (02/09 with eval) Number of FIXED CAPITAL CLERK Visits 1 Evaluation Information Evaluation Date 06/30/24 Precautions Precautions Osteopenia, scoliosis, arthritis, thyroid disorder, history of caroline shoulder, & back pain. PMH reported: Concussion 6 yrs ago after being hip by door knob accidently. PT-OP-B Current Condition Start: 06/23/24 19:42 Freq: Status: Active Protocol: Document 06/30/24 13:48 LRN (Rec: 06/30/24 17:18 LRN [id number]) Current Condition History of Current Condition Onset Date May Current Complaints Pain in R shldr radiating up the neck. Increasing pain when not distracted History of Current Condition Pt states she is interested in having therapy for her R shoulder and neck pain, stating her back is not a problem anymore. Pt reports, maybe because of gardening she started to have throbbing R shoulder pain in the back and radiating up the neck. Her pain has caused her to adjust her sleeping position to mostly sleep on her R side. She c/o she can't sleep on her L side because of R shoulder pain. She reports 2 days ago her R shoulder was slammed by elevator doors, causing her pain to be of greater intensity and up the neck. Prior Treatments and Tests PT for previous shoulder therapy (caroline shoulders both and individual shoulders for pain), for unknown diagnosis (5-20 yrs ago). X-ray (06/03/24) indicates Moderate acromioclavicular glenohumeral arthritic change. Treatment Goals Patient/Caregiver Goals Pt goals: - not able to put weight on R shoulder to get out of bed comfortably using R arm to push self up (used to not have pain, now has pain. - Can't sit to watch TV for more than 10-15' w/o having to put R arm above head. - Pain with reaching out to side with R UE cooking or ironing rated 5/10. - Would like to be able to do home ex's to mitigate the pain . (used to go to ex class 3x/ wk, last time was in early May). 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 Baseline Function- Recreation/Hobbies Used to go to ex class 3x/wk. Baseline Function- Other Slept on both sides w/o pain. Able to get out of bed using R UE comfortably Current Functional Impairments (Reported) Functional Limitations- ADL's Needs help removing her vest. Difficulty getting out of bed due to R shoulder pain. 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 Pain anterior shld R still at arrival and using LUE to support RUE during bed mobility. Compliant with UE ex HEP every day with no pain. Can't sleeping on back due to mouth open and forearms go to sleep. Daughter reminding her posture. Has been actively performing elongation moving, set up sleeping with towel roll and states not realistic pulls out uncomfortable. Using MHP when needed. Pt is using MHP during day for pain support. PT-OP-G Mobility & Gait Start: 06/23/24 19:42 Freq: Status: Active Protocol: Document 06/30/24 13:48 LRN (Rec: 06/30/24 17:18 LRN [id number]) OP Mobility Evaluation Bed Mobility Supine to and from Sit Independent, but R shoulder pain when pushing up with RUE. PT-OP-H Neuro Start: 06/23/24 19:42 Freq: Status: Active Protocol: Document 07/02/24 08:20 LRN (Rec: 07/02/24 09:06 LRN [id number]) Sensation Evaluation Gross Sensation Gross Sensation WNL Deep Tendon Reflex & Clonus Assessment Deep Tendon Reflex Right Brachioradialis Deep Tendon Reflex 1+ Diminished Left Brachioradialis Deep Tendon Reflex 0 Absent Bilateral Tricep Deep Tendon Reflex 0 Absent Right Bicep Deep Tendon Reflex 0 Absent Left Bicep Deep Tendon Reflex 2+ Normal PT-OP-J Posture/Palpation/Skin Start: 06/23/24 19:42 Freq: Status: Active Protocol: Document 06/30/24 13:48 LRN (Rec: 06/30/24 17:18 LRN [id number]) Posture Evaluation Position Standing Head/C-Spine Posture Forward Head Comments Posture Comments Trunk R shifted, L iliac crest is high, L hsoulder is kassidy, R shoulder retractied. neck straight, increased kyphosis, L side is body is posterior. down rotated and low on right, Palpation Assessment Location R shoulder Palpation Location Supraspinatus, infraspinatus Palpation Findings Muscle Guarding,Tenderness, Trigger Point R neck Palpation Location occiput to shouder (UT). Palpation Findings Muscle Guarding,Tenderness, Trigger Point PT-OP-K Range of Motion Start: 06/23/24 19:42 Freq: Status: Active Protocol: Document 06/30/24 13:48 LRN (Rec: 06/30/24 17:18 LRN [id number]) Cervical Spine Range of Motion Cervical Spine Active Percentage Flexion 100 Extension 100 Rotation Left 80 Rotation Right 80 Lateral Flexion Left 30 Lateral Flexion Right 45 ROM Limitations Soft Tissue Tightness Comments Stretch felt with R rot (60 deg's) Shoulder Goniometric Range of Motion Shoulder Right Active Testing Position Sitting Flexion 150 Abduction 157 External Rotation at 0 degrees Abduction 68 Comments ER reaching behind head to C7. Abduction: in scapular plane. Flexion is with elbow flexed (due to pain). Left Active Testing Position Sitting Flexion 147 Abduction 145 External Rotation at 0 degrees Abduction 50 Comments ER reaching behind head to T1. Abduction: in scapular plane. Hip Goniometric Range of Motion Hip Right Passive Testing Position Supine PT-OP-L Special Tests Start: 06/23/24 19:42 Freq: Status: Active Protocol: Document 06/30/24 13:48 LRN (Rec: 06/30/24 17:18 LRN [id number]) Special Tests Cervical Spine Special Tests Upper Limb Tension Test Test Results R UE: + median, + ulnar Traction Test Results - Spurling's Test Test Results + L SB Foraminal Compression Test Results - Shoulder Special Tests Elevation Impingement Test Results + R UE PT-OP-M Strength Start: 06/23/24 19:42 Freq: Status: Active Protocol: Document 06/30/24 13:48 LRN (Rec: 06/30/24 17:18 LRN [id number]) Shoulder Strength Shoulder Manual Muscle Testing Right Abduction (C5) 4 Good External Rotation 3 Fair Comments Generally 5/5 except as indicated above Left Comments Generally 5/5 PT-OP-Q Treatments Start: 06/23/24 19:42 Freq: Status: Active Protocol: Document 07/17/24 13:01 SP (Rec: 07/17/24 13:49 SP [id number]) Therapeutic Exercises Supine Exercises Neck Elongation Supine Exercise Name Neck Elongation - noodle in bottom pillowcase under neck. Equipment Used 2 flat pillows under back of head comfortable neck positioning no pain Reps/Minutes 5 SH x 10, Comments improved CS neutral Therapeutic Activity Therapeutic Activity Nighttime positional trng Name Supine and L sidelie positioning w/pillows & noodle in bottom pillowcase. Comments Hooklying: noodle bottom pillowcas support neck, 2 flat pillows under head, under thighs, under R shld and arm with hand on belly for positional training. Improved keeping mouth closed and comfort for neck and R arm. L Sidelie: focus on trng of head on shoulders positional posturing (neck elongation) with noodle in bottom pillow case with 2 flat pillows under head, 1 between B knees, 1 under R arm for neutral support. Improved lessening pain. postural training Name seated Comments sit front seat, feet on floor, elevated posture, neutral pelvis and scap posterior and down, cervical retraction neutral /c slight nod. Reports is performing postural corrections while walking as well. Manual Therapy Treatment Consent Patient gave verbal consent for manual Yes treatment Soft Tissue Mobilization Cervical Paraspinals Body Location R Cervical paraspinal, UT, Scalene, SCM Mobilization Type Myofascial Release,Strumming Intensity/Depth Moderate Body Position Hooklying Manual Traction Cervical Details Intermittent Axial traction of gentle pull, only enough to relieve pain. Body Position Hooklying Reps/Duration 8' 2nd time 3' to relieve pain from neck ext Comments Note: pt reports osteopenia. Manual Techniques CS PROM Type L SB Comments gentle stretch post manual- good response PT-OP-T Assessment and Plan Start: 06/23/24 19:42 Freq: Status: Active Protocol: Document 07/17/24 13:01 SP (Rec: 07/17/24 13:49 SP [id number]) Physical Therapy Assessment Goals Four Impairment Painful R shoulder AROM (pain reaching out to side, rated 5/ 10) Short Term Goal (STG) Improve R rotator cuff stength to 4/5 with pt able to reach out to the side with pain no greater than 2/10. STG Duration 08/14/24 Insurance Account Representative Goal (LTG) Improve function with pt able to reaching out to side with R UE to cook or ironing with pain no greater than 1/10 ( currently rated 5/10). LTG Duration 09/25/24 Three Impairment R shoulder pain with UE WBing (transferring out of bed) Usp Goal (LTG) Improve R shoulder strength with pt able to perform transfers out of bed at prior level of function of being able to weightbear on R shoulder to get out of bed comfortably, using R arm to push self up. LTG Duration 09/25/24 Two Impairment R shoulder pain at rest, not tolerating >15', pain rated 7/ 10 Short Term Goal (STG) Pt will be educated in self care pain management techniques (positioning, modalities, ex) to be able to tolerate sitting to watch a 30 minute TV program with pain no greater than 4/10. STG Duration 08/14/24 Usp Goal (LTG) Decrease R shoulder pain to no greater than 1/10 with pt able to sit to watch a 30-60 long TV program w/o having to put R arm above head for pain relief. LTG Duration 09/25/24 One Impairment Pt lacks appropriate self care HEP. Short Term Goal (STG) Pt will be educated and will be able to position at nighttime to tolerate side sleeping on either side for a restful period of sleep. (Late entry) 06/30/24: I/S for nighttime head/R UE positioning. 07/06/24: ed use pillows support under R UE and BLEs hooklying. 07/14/24: Pt having more restful sleep. STG Duration 08/14/24 progressing 07/14/24 Usp Goal (LTG) Pt will be independent in an effective self care HEP for R shoulder/RC/scapular stabilizers/mainly upper back strengthening and R shoulder mobility ex's in order to mitigate R shoulder pain. ( used to go to ex class 3x/wk, last time was in early May). 07/02/24: HEP: R sleeper stretch, shoulder rolls and depression/retraction, & written I/S shoulder pinches. 07/06/24: added HEP: wall posture, self STMs post neck and UT ball on wall.\ 07/08/24: added resisted shld ER and extension, self STMs use theracane and ball on wall . LTG Duration 09/25/24 progressing 07/08/24 Assessment Summary Assessment Pt improved carryover postural corrections seated and reports when walking as well. Extensive time spent during tx for problem solve RUE and CS alignment use pillows and noodle for neck support sleeping hooklying and L SL. Good feedback pain reduction with gentle manual traction. Pt discussed might look into cervical traction for self carryover home/traveling and neck brace if needed for support sleeping if need. Physical Therapy Plan Frequency and Duration Frequency of Treatment 2x/Week Duration of treatment (weeks) 12 Plan of Care Start Date 06/30/24 Plan of Care End Date 09/25/24 Therapeutic Interventions Therapeutic Interventions Home Exercise Program,Manual Therapy,Neuromuscular Re- education,Self-Care/Home Management,Soft Tissue Mobilization,Therapeutic Activities,Therapeutic Exercises Modalities Cold Pack/Ice Massage,Electric Stimulation,Hot Packs Next Visit Focus/Plan Next Note Type Treatment Note Next Visit Plan NExt tx: continue wall posture for correct head/neck posture to reduce C/S radicular pain. Continue help with problem solving for positioning at home to reduce R arm pain at rest. Pt to try heat when at rest. [facility] radicul[facility], [facility]. Educ: educate in self care pain management techniques ( positioning, modalities, ex) to be able to tolerate sitting for longer periods. POC: Monitor for R shoulder impingement, neural tension & Apley's ROM. Manual therapy of STM (R UT, Lev scap), & Cont neck/shoulder postural stabilization and hold on RC strengthening unless not irritating after exercise. Ther Ex for: R shoulder/ neck stability, T/S mobility, & improve posture (for trip to [place] in Dec; Modalities for pain and Education in self care and HEP (juárez milk).
--- NOTE | 2024-07-20 13:50 | PT.OTN ---
Current Diagnoses Pain in right shoulder (07/20/24) Lumbago with sciatica, unspecified side (07/20/24) Other shoulder lesions, right shoulder (07/20/24) Physical Therapy Treatment Note PT-OP-A Visit Information Start: 06/23/24 19:42 Freq: Status: Active Protocol: Document 07/20/24 09:03 SP (Rec: 07/20/24 09:51 SP [id number]) Out-Patient Physical Therapy Visit Information Visit Information Visit Type Treatment Note Visit Note Pt is going out of town 08/05 to [place] and back 08/23- will need PN when returns with PT. Visit Start Time 13:01 Visit Stop Time 13:50 Visit Number 7 (03/11 with eval) Number of PATROL CAPTAIN Visits 2 Evaluation Information Evaluation Date 06/30/24 Precautions Precautions Osteopenia, scoliosis, arthritis, thyroid disorder, history of caroline shoulder, & back pain. PMH reported: Concussion 6 yrs ago after being hip by door knob accidently. PT-OP-B Current Condition Start: 06/23/24 19:42 Freq: Status: Active Protocol: Document 06/30/24 13:48 LRN (Rec: 06/30/24 17:18 LRN [id number]) Current Condition History of Current Condition Onset Date May Current Complaints Pain in R shldr radiating up the neck. Increasing pain when not distracted History of Current Condition Pt states she is interested in having therapy for her R shoulder and neck pain, stating her back is not a problem anymore. Pt reports, maybe because of gardening she started to have throbbing R shoulder pain in the back and radiating up the neck. Her pain has caused her to adjust her sleeping position to mostly sleep on her R side. She c/o she can't sleep on her L side because of R shoulder pain. She reports 2 days ago her R shoulder was slammed by elevator doors, causing her pain to be of greater intensity and up the neck. Prior Treatments and Tests PT for previous shoulder therapy (caroline shoulders both and individual shoulders for pain), for unknown diagnosis (5-20 yrs ago). X-ray (06/03/24) indicates Moderate acromioclavicular glenohumeral arthritic change. Treatment Goals Patient/Caregiver Goals Pt goals: - not able to put weight on R shoulder to get out of bed comfortably using R arm to push self up (used to not have pain, now has pain. - Can't sit to watch TV for more than 10-15' w/o having to put R arm above head. - Pain with reaching out to side with R UE cooking or ironing rated 5/10. - Would like to be able to do home ex's to mitigate the pain . (used to go to ex class 3x/ wk, last time was in early May). 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 Baseline Function- Recreation/Hobbies Used to go to ex class 3x/wk. Baseline Function- Other Slept on both sides w/o pain. Able to get out of bed using R UE comfortably Current Functional Impairments (Reported) Functional Limitations- ADL's Needs help removing her vest. Difficulty getting out of bed due to R shoulder pain. 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 She arrives with pain over R UT head to top of shoulder. She stated has errands to do after leave here and thinking about taking Tylenol. She reports using L arm to carry heavy things. She is starting to feel originial pain in L arm sleeping on that side. Tries on back but finds herself on Side. She has been usign her not tub for comfort as well. PT-OP-G Mobility & Gait Start: 06/23/24 19:42 Freq: Status: Active Protocol: Document 06/30/24 13:48 LRN (Rec: 06/30/24 17:18 LRN [id number]) OP Mobility Evaluation Bed Mobility Supine to and from Sit Independent, but R shoulder pain when pushing up with RUE. PT-OP-H Neuro Start: 06/23/24 19:42 Freq: Status: Active Protocol: Document 07/02/24 08:20 LRN (Rec: 07/02/24 09:06 LRN [id number]) Sensation Evaluation Gross Sensation Gross Sensation WNL Deep Tendon Reflex & Clonus Assessment Deep Tendon Reflex Right Brachioradialis Deep Tendon Reflex 1+ Diminished Left Brachioradialis Deep Tendon Reflex 0 Absent Bilateral Tricep Deep Tendon Reflex 0 Absent Right Bicep Deep Tendon Reflex 0 Absent Left Bicep Deep Tendon Reflex 2+ Normal PT-OP-J Posture/Palpation/Skin Start: 06/23/24 19:42 Freq: Status: Active Protocol: Document 06/30/24 13:48 LRN (Rec: 06/30/24 17:18 LRN [id number]) Posture Evaluation Position Standing Head/C-Spine Posture Forward Head Comments Posture Comments Trunk R shifted, L iliac crest is high, L hsoulder is kassidy, R shoulder retractied. neck straight, increased kyphosis, L side is body is posterior. down rotated and low on right, Palpation Assessment Location R shoulder Palpation Location Supraspinatus, infraspinatus Palpation Findings Muscle Guarding,Tenderness, Trigger Point R neck Palpation Location occiput to shouder (UT). Palpation Findings Muscle Guarding,Tenderness, Trigger Point PT-OP-K Range of Motion Start: 06/23/24 19:42 Freq: Status: Active Protocol: Document 06/30/24 13:48 LRN (Rec: 06/30/24 17:18 LRN [id number]) Cervical Spine Range of Motion Cervical Spine Active Percentage Flexion 100 Extension 100 Rotation Left 80 Rotation Right 80 Lateral Flexion Left 30 Lateral Flexion Right 45 ROM Limitations Soft Tissue Tightness Comments Stretch felt with R rot (60 deg's) Shoulder Goniometric Range of Motion Shoulder Right Active Testing Position Sitting Flexion 150 Abduction 157 External Rotation at 0 degrees Abduction 68 Comments ER reaching behind head to C7. Abduction: in scapular plane. Flexion is with elbow flexed (due to pain). Left Active Testing Position Sitting Flexion 147 Abduction 145 External Rotation at 0 degrees Abduction 50 Comments ER reaching behind head to T1. Abduction: in scapular plane. Hip Goniometric Range of Motion Hip Right Passive Testing Position Supine PT-OP-L Special Tests Start: 06/23/24 19:42 Freq: Status: Active Protocol: Document 06/30/24 13:48 LRN (Rec: 06/30/24 17:18 LRN [id number]) Special Tests Cervical Spine Special Tests Upper Limb Tension Test Test Results R UE: + median, + ulnar Traction Test Results - Spurling's Test Test Results + L SB Foraminal Compression Test Results - Shoulder Special Tests Elevation Impingement Test Results + R UE PT-OP-M Strength Start: 06/23/24 19:42 Freq: Status: Active Protocol: Document 06/30/24 13:48 LRN (Rec: 06/30/24 17:18 LRN [id number]) Shoulder Strength Shoulder Manual Muscle Testing Right Abduction (C5) 4 Good External Rotation 3 Fair Comments Generally 5/5 except as indicated above Left Comments Generally 5/5 PT-OP-Q Treatments Start: 06/23/24 19:42 Freq: Status: Active Protocol: Document 07/20/24 09:03 SP (Rec: 07/20/24 09:51 SP [id number]) Therapeutic Exercises Prone Exercises R shld Prone Exercise Name ext, HABD (T) Side right Resistance AROM Reps/Minutes x10 each Comments VC& tactile cue LT fac eccentric return Sidelying Exercises open book Sidelying Exercise Name long Side right Resistance tacile cues Low trap. Equipment Used correction 07/06 performed sidelying not seated Reps/Minutes 8 reps Comments no UT pain, little tension/ tweeking R elbow Standing Exercises wall posture Standing Exercise Name added to HEP Equipment Used rolled small towel behind head Reps/Minutes 10 SH x10 Comments humeral at side with ER Manual Therapy Treatment Consent Patient gave verbal consent for manual Yes treatment Soft Tissue Mobilization Cervical Paraspinals Body Location R>L Cervical paraspinal, UT, Scalene, SCM Mobilization Type Myofascial Release,Strumming Intensity/Depth Moderate Body Position Hooklying R Shld Body Location pec major, prox bicep Mobilization Type Rolling Body Position Supine Comments RUE pillow supported Self-Care/Home Management Treatment Education Patient Education Joint Protection,Pain Management,Safety Other Education Continue use pillows propping RUE hooklying and SL for comfort sleeping for pain reduction. PT-OP-R Modalities Start: 06/23/24 19:42 Freq: Status: Active Protocol: Document 07/20/24 09:03 SP (Rec: 07/20/24 09:51 SP [id number]) Hot Pack/Cold Pack Treatment P Location 10 min Patient Position Hooklying Patient Tolerance Good Comments during manual PT-OP-T Assessment and Plan Start: 06/23/24 19:42 Freq: Status: Active Protocol: Document 07/20/24 09:03 SP (Rec: 07/20/24 09:51 SP [id number]) Physical Therapy Assessment Goals Four Impairment Painful R shoulder AROM (pain reaching out to side, rated 5/ 10) Short Term Goal (STG) Improve R rotator cuff stength to 4/5 with pt able to reach out to the side with pain no greater than 2/10. 07/20/24: non consistant pain seated 1/10 return position STG Duration 08/14/24 progressing 07/20/24 Aquatics Director Goal (LTG) Improve function with pt able to reaching out to side with R UE to cook or ironing with pain no greater than 1/10 ( currently rated 5/10). 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 LTG Duration 09/25/24 progressing 07/20/24 Three Impairment R shoulder pain with UE WBing (transferring out of bed) [facility] Goal (LTG) Improve R shoulder strength with pt able to perform transfers out of bed at prior level of function of being able to weightbear on R shoulder to get out of bed comfortably, using R arm to push self up. LTG Duration 09/25/24 Two Impairment R shoulder pain at rest, not tolerating >15', pain rated 7/ 10 Short Term Goal (STG) Pt will be educated in self care pain management techniques (positioning, modalities, ex) to be able to tolerate sitting to watch a 30 minute TV program with pain no greater than 4/10. STG Duration 08/14/24 Aquatics Director Goal (LTG) Decrease R shoulder pain to no greater than 1/10 with pt able to sit to watch a 30-60 long TV program w/o having to put R arm above head for pain relief. LTG Duration 09/25/24 One Impairment Pt lacks appropriate self care HEP. Short Term Goal (STG) Pt will be educated and will be able to position at nighttime to tolerate side sleeping on either side for a restful period of sleep. (Late entry) 06/30/24: I/S for nighttime head/R UE positioning. 07/06/24: ed use pillows support under R UE and BLEs hooklying. 07/14/24: Pt having more restful sleep. STG Duration 08/14/24 progressing 07/14/24 [facility]ci Goal (LTG) Pt will be independent in an effective self care HEP for R shoulder/RC/scapular stabilizers/mainly upper back strengthening and R shoulder mobility ex's in order to mitigate R shoulder pain. ( used to go to ex class 3x/wk, last time was in early May). 07/02/24: HEP: R sleeper stretch, shoulder rolls and depression/retraction, & written I/S shoulder pinches. 07/06/24: added HEP: wall posture, self STMs post neck and UT ball on wall.\ 07/08/24: added resisted shld ER and extension, self STMs use theracane and ball on wall . LTG Duration 09/25/24 progressing 07/08/24 Assessment Summary Assessment Pt continues report and demonstrate pain R anterior and within GH Jt shoulder with low tolerance stationary sleeping, needs to change positions often L SL and hooklying RUE supported on pillow. Utilized MHP during manual and during her day with reports lessing tension and pain. Pt good tolerance to no pain during open book and wall posture reviewed today. Pt reports performs PT and class exercises that help with R shoulder pain reduction and mobility. Good feedback response to open anterior chain during review wall posture /c humeral ER with no radicular symptoms. Physical Therapy Plan Frequency and Duration Frequency of Treatment 2x/Week Duration of treatment (weeks) 12 Plan of Care Start Date 06/30/24 Plan of Care End Date 09/25/24 Therapeutic Interventions Therapeutic Interventions Home Exercise Program,Manual Therapy,Neuromuscular Re- education,Self-Care/Home Management,Soft Tissue Mobilization,Therapeutic Activities,Therapeutic Exercises Modalities Cold Pack/Ice Massage,Electric Stimulation,Hot Packs Next Visit Focus/Plan Next Note Type Treatment Note Next Visit Plan Review HEP for awareness painfree. 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 Continue help with problem solving for positioning at home to reduce R arm pain at rest for quality sleep and painreduction. Continue heat when at rest. C . radiculopathy [facility], [facility]. Educ: educate in self care pain management techniques ( positioning, modalities, ex) to be able to tolerate sitting for longer periods. POC: Monitor for R shoulder impingement, neural tension & Apley's ROM. Manual therapy of STM (R UT, Lev scap), & Cont neck/shoulder postural stabilization and hold on RC strengthening unless not irritating after exercise. Ther Ex for: R shoulder/ neck stability, T/S mobility, & improve posture (for trip to [place] in Dec; Modalities for pain and Education in self care and HEP (juárez milk).
--- NOTE | 2024-08-25 15:47 | PT.OTN ---
Addendum entered and electronically signed by Adri Perez, PT 08/25/24 16:01: ELEANOR score: 28/100; UE Quickdash 43.18 Original Note: Current Diagnoses Pain in right shoulder (08/25/24) Lumbago with sciatica, unspecified side (08/25/24) Other shoulder lesions, right shoulder (08/25/24) Physical Therapy Treatment Note PT-OP-A Visit Information Start: 06/23/24 19:42 Freq: Status: Active Protocol: Document 08/25/24 10:48 LRN (Rec: 08/25/24 11:34 LRN [id number]) Out-Patient Physical Therapy Visit Information Visit Information Visit Type Progress Note Visit Start Time 10:48 Visit Stop Time 11:33 Visit Number 8 (04/11 with eval) Evaluation Information Evaluation Date 06/30/24 Precautions Precautions Osteopenia, scoliosis, arthritis, thyroid disorder, history of caroline shoulder, & back pain. PMH reported: Concussion 6 yrs ago after being hip by door knob accidently. 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 PT-OP-B Current Condition Start: 06/23/24 19:42 Freq: Status: Active Protocol: Document 06/30/24 13:48 LRN (Rec: 06/30/24 17:18 LRN [id number]) Current Condition History of Current Condition Onset Date May Current Complaints Pain in R shldr radiating up the neck. Increasing pain when not distracted History of Current Condition Pt states she is interested in having therapy for her R shoulder and neck pain, stating her back is not a problem anymore. Pt reports, maybe because of gardening she started to have throbbing R shoulder pain in the back and radiating up the neck. Her pain has caused her to adjust her sleeping position to mostly sleep on her R side. She c/o she can't sleep on her L side because of R shoulder pain. She reports 2 days ago her R shoulder was slammed by elevator doors, causing her pain to be of greater intensity and up the neck. Prior Treatments and Tests PT for previous shoulder therapy (caroline shoulders both and individual shoulders for pain), for unknown diagnosis (5-20 yrs ago). X-ray (06/03/24) indicates Moderate acromioclavicular glenohumeral arthritic change. Treatment Goals Patient/Caregiver Goals Pt goals: - not able to put weight on R shoulder to get out of bed comfortably using R arm to push self up (used to not have pain, now has pain. - Can't sit to watch TV for more than 10-15' w/o having to put R arm above head. - Pain with reaching out to side with R UE cooking or ironing rated 5/10. - Would like to be able to do home ex's to mitigate the pain . (used to go to ex class 3x/ wk, last time was in early May). 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 Baseline Function- Recreation/Hobbies Used to go to ex class 3x/wk. Baseline Function- Other Slept on both sides w/o pain. Able to get out of bed using R UE comfortably Current Functional Impairments (Reported) Functional Limitations- ADL's Needs help removing her vest. Difficulty getting out of bed due to R shoulder pain. 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 Has been sitting up with good posture and wearing backpack. States airplane ride was umbearable, because arm had to be down. 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 PT-OP-G Mobility & Gait Start: 06/23/24 19:42 Freq: Status: Active Protocol: Document 06/30/24 13:48 LRN (Rec: 06/30/24 17:18 LRN [id number]) OP Mobility Evaluation Bed Mobility Supine to and from Sit Independent, but R shoulder pain when pushing up with RUE. PT-OP-H Neuro Start: 06/23/24 19:42 Freq: Status: Active Protocol: Document 07/02/24 08:20 LRN (Rec: 07/02/24 09:06 LRN [id number]) Sensation Evaluation Gross Sensation Gross Sensation WNL Deep Tendon Reflex & Clonus Assessment Deep Tendon Reflex Right Brachioradialis Deep Tendon Reflex 1+ Diminished Left Brachioradialis Deep Tendon Reflex 0 Absent Bilateral Tricep Deep Tendon Reflex 0 Absent Right Bicep Deep Tendon Reflex 0 Absent Left Bicep Deep Tendon Reflex 2+ Normal PT-OP-J Posture/Palpation/Skin Start: 06/23/24 19:42 Freq: Status: Active Protocol: Document 06/30/24 13:48 LRN (Rec: 06/30/24 17:18 LRN [id number]) Posture Evaluation Position Standing Head/C-Spine Posture Forward Head Comments Posture Comments Trunk R shifted, L iliac crest is high, L hsoulder is kassidy, R shoulder retractied. neck straight, increased kyphosis, L side is body is posterior. down rotated and low on right, Palpation Assessment Location R shoulder Palpation Location Supraspinatus, infraspinatus Palpation Findings Muscle Guarding,Tenderness, Trigger Point R neck Palpation Location occiput to shouder (UT). Palpation Findings Muscle Guarding,Tenderness, Trigger Point PT-OP-K Range of Motion Start: 06/23/24 19:42 Freq: Status: Active Protocol: Document 08/25/24 10:48 LRN (Rec: 08/25/24 15:04 LRN [id number]) Cervical Spine Range of Motion Cervical Spine Active Percentage Testing Position Sitting Flexion 75 Extension 100 Comments Flexion elicits pain in R UT. Shoulder Goniometric Range of Motion Shoulder Left Passive Shoulder ROM WFL Yes Testing Position Supine External Rotation at 90 degrees 70 Abduction Internal Rotation 58 Right Passive Shoulder ROM WFL No Testing Position Supine External Rotation at 90 degrees 60 Abduction Internal Rotation 55 Right Active Shoulder ROM WFL No Testing Position Sitting Flexion 135 Extension 50 Abduction 90 Internal Rotation Behind Back (text) Reach to posteriolateral R buttock Comments ER behind head to the neck. PT-OP-L Special Tests Start: 06/23/24 19:42 Freq: Status: Active Protocol: Document 08/25/24 10:48 LRN (Rec: 08/25/24 15:10 LRN [id number]) Special Tests Cervical Spine Special Tests Traction Test Results negative Spurling's Test Test Results Postive in L SB Foraminal Compression Test Results negative bilaterally Shoulder Special Tests Elevation Impingement Test Results + R UE Comments Unable to position pt to test for other soft tissue dysfunction due to pain. PT-OP-M Strength Start: 06/23/24 19:42 Freq: Status: Active Protocol: Document 08/25/24 10:48 LRN (Rec: 08/25/24 15:04 LRN [id number]) Shoulder Strength Shoulder Manual Muscle Testing Right Flexion 5 Normal Extension 5 Normal Abduction (C5) 2+ Poor+ External Rotation 2+ Poor+ Internal Rotation 5 Normal Left Flexion 4 Good Extension 5 Normal Abduction (C5) 4 Good External Rotation 5 Normal Internal Rotation 5 Normal PT-OP-Q Treatments Start: 06/23/24 19:42 Freq: Status: Active Protocol: Document 08/25/24 10:48 LRN (Rec: 08/25/24 15:47 LRN [id number]) Self-Care/Home Management Treatment Education Other Education Discussed results of assessment, goals, treatment, and plan of care (POC) with pt ; pt agreeable to goals, treatment, and POC to continue to regain lost R shoulder ROM /strength and to seek visit to referring physician for further medical assessment. PT-OP-R Modalities Start: 06/23/24 19:42 Freq: Status: Active Protocol: Document 07/20/24 09:03 SP (Rec: 07/20/24 09:51 SP [id number]) Hot Pack/Cold Pack Treatment [facility] Location 10 min Patient Position Hooklying Patient Tolerance Good Comments during manual PT-OP-T Assessment and Plan Start: 06/23/24 19:42 Freq: Status: Active Protocol: Document 08/25/24 10:48 LRN (Rec: 08/25/24 11:34 LRN [id number]) Physical Therapy Assessment Rehab Potential Rehabilitation Potential Fair Evaluation Complexity Number of Personal Factors/Comorbidities 3 or More Number of Body Systems Impaired 4 or More Clinical Presentation at Evaluation Evolving Impairments Impairments Activity Tolerance,Pain, Posture,ROM,Soft Tissue Mobility,Strength,Transfers Goals Four Impairment Painful R shoulder AROM (pain reaching out to side, rated 5/ 10) Short Term Goal (STG) Improve R rotator cuff stength to 4/5 with pt able to reach out to the side with pain no greater than 2/10. 07/20/24: non consistant pain seated 1/10 return position. 08/25/24: Able to slowly reach out to side with pain 1. 5-2/10. STG Duration 08/14/24 progressing 08/25/24 Dental Surgeon Goal (LTG) Improve function with pt able to reaching out to side with R UE to cook or ironing with pain no greater than 1/10 ( currently rated 5/10). 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 08/25/24: Can iron 2 pillow cases with pain rated 3.5/10. Becomes intolerable to iron after 2 pillowcases. Can bead 15', but must stop and stretch arm out and walk around to be able to work more . LTG Duration 09/25/24 progressing 08/25/24 Three Impairment R shoulder pain with UE WBing (transferring out of bed) Mcfp Goal (LTG) Improve R shoulder strength with pt able to perform transfers out of bed at prior level of function of being able to weightbear on R shoulder to get out of bed comfortably, using R arm to push self up. 08/25/24: Can push with R shoulder from R sidelie to get up but is difficult, Pain (8 /10) with pushing wgt into R elbow. but has been getting up on L side. LTG Duration 09/25/24 slow progress . Two Impairment R shoulder pain at rest, not tolerating >15', pain rated 7/ 10 Short Term Goal (STG) Pt will be educated in self care pain management techniques (positioning, modalities, ex) to be able to tolerate sitting to watch a 30 minute TV program with pain no greater than 4/10. 08/25/24: Before [place] trip, had to put R arm up on top of sofa in order to tolerate watching TV 20 minutes at a time, pain 8/10. STG Duration 08/14/24 Dental Surgeon Goal (LTG) Decrease R shoulder pain to no greater than 1/10 with pt able to sit to watch a 30-60 long TV program w/o having to put R arm above head for pain relief. 08/25/24: Watching TV 20 minutes at a time, pain 8/10. LTG Duration 09/25/24 One Impairment Pt lacks appropriate self care HEP. Short Term Goal (STG) Pt will be educated and will be able to position at nighttime to tolerate side sleeping on either side for a restful period of sleep. (Late entry) 06/30/24: I/S for nighttime head/R UE positioning. 07/06/24: ed use pillows support under R UE and BLEs hooklying. 07/14/24: Pt having more restful sleep. 08/25/24: Pt able to sleep on R side for a restful sleep. Has difficulty sleeping L because of the need to support the arm during sleep. STG Duration 08/14/24 08/25/24: Partially MET GOAL. Dental Surgeon Goal (LTG) Pt will be independent in an effective self care HEP for R shoulder/RC/scapular stabilizers/mainly upper back strengthening and R shoulder mobility ex's in order to mitigate R shoulder pain. ( used to go to ex class 3x/wk, last time was in early May). 07/02/24: HEP: R sleeper stretch, shoulder rolls and depression/retraction, & written I/S shoulder pinches. 07/06/24: added HEP: wall posture, self STMs post neck and UT ball on wall.\ 07/08/24: added resisted shld ER and extension, self STMs use theracane and ball on wall . 08/25/24: Pt has been in [place]; therefore has not able to do HEP. LTG Duration 09/25/24 progressing 07/08/24 Assessment Summary Assessment Pt is a 79 yo female who has been seen for seven visits in 2 months with her returning today after being gone a month to [facility]. Initially, she presented with R RC dysfunction and notable weakness of shoulder AB & ER ( supraspinatus and infraspinatus), and provocative Spurlings test indicated possible cervical involvement, but other tests were negative. Her posturing of arm overhead to relieve her pain is more indicative of cervical involvement. Today, provocative testing was inconclusive for cervical involvement, and positive for impingement. Her R shoulder mobility and strength is limited by pain, and she didn' t tolerate positioning to assess for possible soft tissue joint dysfunction. Her pain has lessened at nighttime, allowing her for more restful sleep and she is now able to use her arm for sidelie to sit transfers, although repetitive use of her RUE increases her pain. Further medical testing to assess for cervical and/or R shoulder soft tissue dysfunction is recommended. The pt would like to regain her R shoulder ROM and strength until she can get in to see her referring physician . The pt will benefit from skilled physical therapy to return her mobilty and strength to her prior status before her trip to [facility]. 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 Heat when at rest. Focus on returning ROM & strength of R shoulder to prior function before her trip. Check [facility]. R shoulder impingement/C. radiculopathy rehab, Educ: educate in self care pain management techniques ( positioning, modalities, ex) to be able to tolerate sitting for longer periods. POC: Monitor for R shoulder impingement/C. neural involvement. Manual therapy of STM (R UT, Lev scap), & neck/shoulder postural stabilization. Ther Ex for: R shoulder(RC strengthening if tolerated)/neck stability, T/S mobility, & improve posture. Modalities for pain and Education in self care and HEP (juárez milk).
--- NOTE | 2024-09-01 17:17 | PT.OTN ---
Current Diagnoses Pain in right shoulder (09/01/24) Lumbago with sciatica, unspecified side (09/01/24) Other shoulder lesions, right shoulder (09/01/24) Physical Therapy Treatment Note PT-OP-A Visit Information Start: 06/23/24 19:42 Freq: Status: Active Protocol: Document 09/01/24 10:51 LRN (Rec: 09/01/24 11:50 LRN [id number]) Out-Patient Physical Therapy Visit Information Visit Information Visit Type Treatment Note Visit Start Time 10:51 Visit Stop Time 11:46 Visit Number 9 (05/12 with eval) Evaluation Information Evaluation Date 06/30/24 Precautions Precautions Osteopenia, scoliosis, arthritis, thyroid disorder, history of caroline shoulder, & back pain. PMH reported: Concussion 6 yrs ago after being hip by door knob accidently. 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 PT-OP-B Current Condition Start: 06/23/24 19:42 Freq: Status: Active Protocol: Document 06/30/24 13:48 LRN (Rec: 06/30/24 17:18 LRN [id number]) Current Condition History of Current Condition Onset Date May Current Complaints Pain in R shldr radiating up the neck. Increasing pain when not distracted History of Current Condition Pt states she is interested in having therapy for her R shoulder and neck pain, stating her back is not a problem anymore. Pt reports, maybe because of gardening she started to have throbbing R shoulder pain in the back and radiating up the neck. Her pain has caused her to adjust her sleeping position to mostly sleep on her R side. She c/o she can't sleep on her L side because of R shoulder pain. She reports 2 days ago her R shoulder was slammed by elevator doors, causing her pain to be of greater intensity and up the neck. Prior Treatments and Tests PT for previous shoulder therapy (caroline shoulders both and individual shoulders for pain), for unknown diagnosis (5-20 yrs ago). X-ray (06/03/24) indicates Moderate acromioclavicular glenohumeral arthritic change. Treatment Goals Patient/Caregiver Goals Pt goals: - not able to put weight on R shoulder to get out of bed comfortably using R arm to push self up (used to not have pain, now has pain. - Can't sit to watch TV for more than 10-15' w/o having to put R arm above head. - Pain with reaching out to side with R UE cooking or ironing rated 5/10. - Would like to be able to do home ex's to mitigate the pain . (used to go to ex class 3x/ wk, last time was in early May). 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 Baseline Function- Recreation/Hobbies Used to go to ex class 3x/wk. Baseline Function- Other Slept on both sides w/o pain. Able to get out of bed using R UE comfortably Current Functional Impairments (Reported) Functional Limitations- ADL's Needs help removing her vest. Difficulty getting out of bed due to R shoulder pain. 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 States holding her arm across her belly is most painful. Must raise arm to get relief. PT-OP-G Mobility & Gait Start: 06/23/24 19:42 Freq: Status: Active Protocol: Document 06/30/24 13:48 LRN (Rec: 06/30/24 17:18 LRN [id number]) OP Mobility Evaluation Bed Mobility Supine to and from Sit Independent, but R shoulder pain when pushing up with RUE. PT-OP-H Neuro Start: 06/23/24 19:42 Freq: Status: Active Protocol: Document 07/02/24 08:20 LRN (Rec: 07/02/24 09:06 LRN [id number]) Sensation Evaluation Gross Sensation Gross Sensation WNL Deep Tendon Reflex & Clonus Assessment Deep Tendon Reflex Right Brachioradialis Deep Tendon Reflex 1+ Diminished Left Brachioradialis Deep Tendon Reflex 0 Absent Bilateral Tricep Deep Tendon Reflex 0 Absent Right Bicep Deep Tendon Reflex 0 Absent Left Bicep Deep Tendon Reflex 2+ Normal PT-OP-J Posture/Palpation/Skin Start: 06/23/24 19:42 Freq: Status: Active Protocol: Document 06/30/24 13:48 LRN (Rec: 06/30/24 17:18 LRN [id number]) Posture Evaluation Position Standing Head/C-Spine Posture Forward Head Comments Posture Comments Trunk R shifted, L iliac crest is high, L hsoulder is kassidy, R shoulder retractied. neck straight, increased kyphosis, L side is body is posterior. down rotated and low on right, Palpation Assessment Location R shoulder Palpation Location Supraspinatus, infraspinatus Palpation Findings Muscle Guarding,Tenderness, Trigger Point R neck Palpation Location occiput to shouder (UT). Palpation Findings Muscle Guarding,Tenderness, Trigger Point PT-OP-K Range of Motion Start: 06/23/24 19:42 Freq: Status: Active Protocol: Document 08/25/24 10:48 LRN (Rec: 08/25/24 15:04 LRN [id number]) Cervical Spine Range of Motion Cervical Spine Active Percentage Testing Position Sitting Flexion 75 Extension 100 Comments Flexion elicits pain in R UT. Shoulder Goniometric Range of Motion Shoulder Left Passive Shoulder ROM WFL Yes Testing Position Supine External Rotation at 90 degrees 70 Abduction Internal Rotation 58 Right Passive Shoulder ROM WFL No Testing Position Supine External Rotation at 90 degrees 60 Abduction Internal Rotation 55 Right Active Shoulder ROM WFL No Testing Position Sitting Flexion 135 Extension 50 Abduction 90 Internal Rotation Behind Back (text) Reach to posteriolateral R buttock Comments ER behind head to the neck. PT-OP-L Special Tests Start: 06/23/24 19:42 Freq: Status: Active Protocol: Document 09/01/24 10:51 LRN (Rec: 09/01/24 11:50 LRN [id number]) Special Tests Cervical Spine Special Tests Spurling's Test Test Results negative bilaterally Foraminal Compression Test Results negative bilaterally Shoulder Special Tests [place] Eliot Impingement Test Results Positive R shoulder Clunk Test Test Results Positive R shoulder Rogers Test Test Results Positive R shoulder Elevation Impingement Test Results Positive R shoulder PT-OP-M Strength Start: 06/23/24 19:42 Freq: Status: Active Protocol: Document 08/25/24 10:48 LRN (Rec: 08/25/24 15:04 LRN [id number]) Shoulder Strength Shoulder Manual Muscle Testing Right Flexion 5 Normal Extension 5 Normal Abduction (C5) 2+ Poor+ External Rotation 2+ Poor+ Internal Rotation 5 Normal Left Flexion 4 Good Extension 5 Normal Abduction (C5) 4 Good External Rotation 5 Normal Internal Rotation 5 Normal PT-OP-Q Treatments Start: 06/23/24 19:42 Freq: Status: Active Protocol: Document 09/01/24 10:51 LRN (Rec: 09/01/24 11:50 LRN [id number]) Manual Therapy Treatment Soft Tissue Mobilization Cervical Paraspinals Body Location R>L Cervical paraspinal Mobilization Type Myofascial Release,Strumming Intensity/Depth Moderate Body Position Hooklying Joint Mobilizations T1-T2 Joint C7, T1 rot R (spinous process mob left) Direction Gentle sustained pressure Body Position Supine Comments Pain elicited in superior and inferior scapular border with T1 mob. 1st rib Joint R first rib Direction Inferior glide Body Position Supine PT-OP-R Modalities Start: 06/23/24 19:42 Freq: Status: Active Protocol: Document 09/01/24 10:51 LRN (Rec: 09/01/24 17:15 LRN [id number]) Electric Stimulation Electric Stimulation Interferential Current (IFC) Body Location R shoulder (UT>Posterolat scap , Pec Min/Tate at humeral head> Infraspinatus Intensity 9 Target/Sweep Sweep Patient Position Hooklying Combined With Heat/Cold Hot Pack Comments Bolster under knees. MHP for back and shoulder. PT-OP-T Assessment and Plan Start: 06/23/24 19:42 Freq: Status: Active Protocol: Document 09/01/24 10:51 LRN (Rec: 09/01/24 11:50 LRN [id number]) Physical Therapy Assessment Goals Four Impairment Painful R shoulder AROM (pain reaching out to side, rated 5/ 10) Short Term Goal (STG) Improve R rotator cuff stength to 4/5 with pt able to reach out to the side with pain no greater than 2/10. 07/20/24: non consistant pain seated 1/10 return position. 08/25/24: Able to slowly reach out to side with pain 1. 5-2/10. STG Duration 08/14/24 progressing 08/25/24 Senior Care Goal (LTG) Improve function with pt able to reaching out to side with R UE to cook or ironing with pain no greater than 1/10 ( currently rated 5/10). 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 08/25/24: Can iron 2 pillow cases with pain rated 3.5/10. Becomes intolerable to iron after 2 pillowcases. Can bead 15', but must stop and stretch arm out and walk around to be able to work more . LTG Duration 09/25/24 progressing 08/25/24 Three Impairment R shoulder pain with UE WBing (transferring out of bed) Senior Care Goal (LTG) Improve R shoulder strength with pt able to perform transfers out of bed at prior level of function of being able to weightbear on R shoulder to get out of bed comfortably, using R arm to push self up. 08/25/24: Can push with R shoulder from R sidelie to get up but is difficult, Pain (8 /10) with pushing wgt into R elbow. but has been getting up on L side. LTG Duration 09/25/24 slow progress . Two Impairment R shoulder pain at rest, not tolerating >15', pain rated 7/ 10 Short Term Goal (STG) Pt will be educated in self care pain management techniques (positioning, modalities, ex) to be able to tolerate sitting to watch a 30 minute TV program with pain no greater than 4/10. 08/25/24: Before [place] trip, had to put R arm up on top of sofa in order to tolerate watching TV 20 minutes at a time, pain 8/10. 09/01/24: Discussed and issued handout for pain mgmt with [employer]. 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 08/25/24: Watching TV 20 minutes at a time, pain 8/. LTG Duration 09/25/24 One Impairment Pt lacks appropriate self care HEP. Short Term Goal (STG) Pt will be educated and will be able to position at nighttime to tolerate side sleeping on either side for a restful period of sleep. (Late entry) 06/30/24: I/S for nighttime head/R UE positioning. 07/06/24: ed use pillows support under R UE and BLEs hooklying. 07/14/24: Pt having more restful sleep. 08/25/24: Pt able to sleep on R side for a restful sleep. Has difficulty sleeping L because of the need to support the arm during sleep. STG Duration 08/14/24 08/25/24: Partially MET GOAL. Senior Care Goal (LTG) Pt will be independent in an effective self care HEP for R shoulder/RC/scapular stabilizers/mainly upper back strengthening and R shoulder mobility ex's in order to mitigate R shoulder pain. ( used to go to ex class 3x/wk, last time was in early May). 07/02/24: HEP: R sleeper stretch, shoulder rolls and depression/retraction, & written I/S shoulder pinches. 07/06/24: added HEP: wall posture, self STMs post neck and UT ball on wall.\ 07/08/24: added resisted shld ER and extension, self STMs use theracane and ball on wall . 08/25/24: Pt has been in [place]; therefore has not able to do HEP. LTG Duration 09/25/24 progressing 07/08/24 Assessment Summary Assessment Pt is a 79 yo female initially presenting with R RC dysfunction and notable weakness of shoulder AB & ER. Palpation indicates a high R 1st rib and thoracic spine rotation left. Special testing indicates possible labral and/or RC dysfunction. Further medical testing is recommended. She showed + response to EStim with pain reduction (5/10 at start), to 7/10 after JMT/STM & 2/10 after EStim. Poor response to 1st rib inferior mob and T/ S rotation correction. Physical Therapy Plan Frequency and Duration Frequency of Treatment 2x/Week Duration of treatment (weeks) 12 Plan of Care Start Date 06/30/24 Plan of Care End Date 09/25/24 Next Visit Focus/Plan Next Note Type Treatment Note Next Visit Plan Pt to make f/u appt with referring physician. Next: End with MH/IFES to R shoulder. Check [facility]. 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 Discuss use of Heat for pn mgmt. Focus on returning ROM & strength of R shoulder to prior function before her trip. R shoulder impingement/labral dysfunction , ?T/S rot. Educ: Educate in self care pain management techniques ( positioning, modalities, ex) to be able to tolerate sitting for longer periods. POC: Monitor for R shoulder impingement/C. neural involvement. Manual therapy of STM (R UT, Lev scap), & neck/shoulder postural stabilization. Ther Ex for: R shoulder(RC strengthening if tolerated)/neck stability, T/S mobility, & improve posture. Modalities for pain and Education in self care and HEP ([employer]).
--- NOTE | 2024-09-08 08:17 | PT.OTN ---
Current Diagnoses Pain in right shoulder (09/08/24) Lumbago with sciatica, unspecified side (09/08/24) Other shoulder lesions, right shoulder (09/08/24) Physical Therapy Treatment Note PT-OP-A Visit Information Start: 06/23/24 19:42 Freq: Status: Active Protocol: Document 09/08/24 07:31 SP (Rec: 09/08/24 08:18 SP [id number]) Out-Patient Physical Therapy Visit Information Visit Information Visit Type Treatment Note Visit Start Time 07:31 Visit Stop Time 08:17 Visit Number 10 (3/10 with PN) Number of EMPLOYMENT EDUCATIONAL COORD Visits 1 Evaluation Information Evaluation Date 06/30/24 Precautions Precautions Osteopenia, scoliosis, arthritis, thyroid disorder, history of dimas shoulder, & back pain. PMH reported: Concussion 6 yrs ago after being hip by door knob accidently. 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 PT-OP-B Current Condition Start: 06/23/24 19:42 Freq: Status: Active Protocol: Document 06/30/24 13:48 LRN (Rec: 06/30/24 17:18 LRN [id number]) Current Condition History of Current Condition Onset Date May Current Complaints Pain in R shldr radiating up the neck. Increasing pain when not distracted History of Current Condition Pt states she is interested in having therapy for her R shoulder and neck pain, stating her back is not a problem anymore. Pt reports, maybe because of gardening she started to have throbbing R shoulder pain in the back and radiating up the neck. Her pain has caused her to adjust her sleeping position to mostly sleep on her R side. She c/o she can't sleep on her L side because of R shoulder pain. She reports 2 days ago her R shoulder was slammed by elevator doors, causing her pain to be of greater intensity and up the neck. Prior Treatments and Tests PT for previous shoulder therapy (dimas shoulders both and individual shoulders for pain), for unknown diagnosis (5-20 yrs ago). X-ray (06/03/24) indicates Moderate acromioclavicular glenohumeral arthritic change. Treatment Goals Patient/Caregiver Goals Pt goals: - not able to put weight on R shoulder to get out of bed comfortably using R arm to push self up (used to not have pain, now has pain. - Can't sit to watch TV for more than 10-15' w/o having to put R arm above head. - Pain with reaching out to side with R UE cooking or ironing rated 5/10. - Would like to be able to do home ex's to mitigate the pain . (used to go to ex class 3x/ wk, last time was in early May). 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 Baseline Function- Recreation/Hobbies Used to go to ex class 3x/wk. Baseline Function- Other Slept on both sides w/o pain. Able to get out of bed using R UE comfortably Current Functional Impairments (Reported) Functional Limitations- ADL's Needs help removing her vest. Difficulty getting out of bed due to R shoulder pain. 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 She now has pain from neck and down into R arm to anterior R elbow since being out of town. Worse position is supported in front but finds relief with R shld abd and ER. Her L shoulder is uncomfortable when laying on it. She is going to see Dr Urena next appt end Sep but might send portal message for feedback what can do sooner. Pt stated didn't do her exercises while on vacation due to pain experienced and was really mindful of her posture positioning as instructed and not picking up items that caused pain to support pain control, family member helped her with weighted items. 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 She stated has done some yoga as [place] pose and not painful with arm out to the side. She finds most comfortable position RUE is abd 45 deg with ER supported. PT-OP-G Mobility & Gait Start: 06/23/24 19:42 Freq: Status: Active Protocol: Document 06/30/24 13:48 LRN (Rec: 06/30/24 17:18 LRN [id number]) OP Mobility Evaluation Bed Mobility Supine to and from Sit Independent, but R shoulder pain when pushing up with RUE. PT-OP-H Neuro Start: 06/23/24 19:42 Freq: Status: Active Protocol: Document 07/02/24 08:20 LRN (Rec: 07/02/24 09:06 LRN [id number]) Sensation Evaluation Gross Sensation Gross Sensation WNL Deep Tendon Reflex & Clonus Assessment Deep Tendon Reflex Right Brachioradialis Deep Tendon Reflex 1+ Diminished Left Brachioradialis Deep Tendon Reflex 0 Absent Bilateral Tricep Deep Tendon Reflex 0 Absent Right Bicep Deep Tendon Reflex 0 Absent Left Bicep Deep Tendon Reflex 2+ Normal PT-OP-J Posture/Palpation/Skin Start: 06/23/24 19:42 Freq: Status: Active Protocol: Document 06/30/24 13:48 LRN (Rec: 06/30/24 17:18 LRN [id number]) Posture Evaluation Position Standing Head/C-Spine Posture Forward Head Comments Posture Comments Trunk R shifted, L iliac crest is high, L hsoulder is kassidy, R shoulder retractied. neck straight, increased kyphosis, L side is body is posterior. down rotated and low on right, Palpation Assessment Location R shoulder Palpation Location Supraspinatus, infraspinatus Palpation Findings Muscle Guarding,Tenderness, Trigger Point R neck Palpation Location occiput to shouder (UT). Palpation Findings Muscle Guarding,Tenderness, Trigger Point PT-OP-K Range of Motion Start: 06/23/24 19:42 Freq: Status: Active Protocol: Document 08/25/24 10:48 LRN (Rec: 08/25/24 15:04 LRN [id number]) Cervical Spine Range of Motion Cervical Spine Active Percentage Testing Position Sitting Flexion 75 Extension 100 Comments Flexion elicits pain in R UT. Shoulder Goniometric Range of Motion Shoulder Left Passive Shoulder ROM WFL Yes Testing Position Supine External Rotation at 90 degrees 70 Abduction Internal Rotation 58 Right Passive Shoulder ROM WFL No Testing Position Supine External Rotation at 90 degrees 60 Abduction Internal Rotation 55 Right Active Shoulder ROM WFL No Testing Position Sitting Flexion 135 Extension 50 Abduction 90 Internal Rotation Behind Back (text) Reach to posteriolateral R buttock Comments ER behind head to the neck. PT-OP-L Special Tests Start: 06/23/24 19:42 Freq: Status: Active Protocol: Document 09/01/24 10:51 LRN (Rec: 09/01/24 11:50 LRN [id number]) Special Tests Cervical Spine Special Tests Spurling's Test Test Results negative bilaterally Foraminal Compression Test Results negative bilaterally Shoulder Special Tests [place] Impingement Test Results Positive R shoulder Clunk Test Test Results Positive R shoulder [place] Test Test Results Positive R shoulder Elevation Impingement Test Results Positive R shoulder PT-OP-M Strength Start: 06/23/24 19:42 Freq: Status: Active Protocol: Document 08/25/24 10:48 LRN (Rec: 08/25/24 15:04 LRN [id number]) Shoulder Strength Shoulder Manual Muscle Testing Right Flexion 5 Normal Extension 5 Normal Abduction (C5) 2+ Poor+ External Rotation 2+ Poor+ Internal Rotation 5 Normal Left Flexion 4 Good Extension 5 Normal Abduction (C5) 4 Good External Rotation 5 Normal Internal Rotation 5 Normal PT-OP-Q Treatments Start: 06/23/24 19:42 Freq: Status: Active Protocol: Document 09/08/24 07:31 SP (Rec: 09/08/24 08:18 SP [id number]) Therapeutic Exercises Standing Exercises resisted shld ext Standing Exercise Name Verbal review AROM vs TB gentle postural review Side bilateral Resistance Tb #1 light blue Comments not performed wall posture Standing Exercise Name verbal review if tolerated support postural support Equipment Used rolled small towel behind head Comments humeral at side with ER Other Exercises Self STMs Other Exercise Name verbal review for tension reduction/pain control Side right Resistance theracane posterior neck, ball wall UT superior scap Equipment Used MWM head turns/nods-good feedback response, sebastián del real Comments gentle pressure, MWM head turns/nods Manual Therapy Treatment Consent Patient gave verbal consent for manual Yes treatment Soft Tissue Mobilization Cervical Paraspinals Body Location R>L Cervical paraspinal, scalene, LS, UT Mobilization Type Myofascial Release,Rolling, Sustained Pressure Intensity/Depth Moderate Body Position Hooklying, L SL Comments gentle pressure glides and breath R Shld Body Location pec major, prox bicep Mobilization Type Rolling,Sustained Pressure, Other Body Position Supine Comments RUE pillow supported 45 deg abd with humeral ER most comfortable positioning for relief. Joint Mobilizations 1st rib Joint R first rib Direction Inferior glide Body Position Hooklying Comments intially good response with exhale breath then started to cause pain into upper R humerus. Manual Traction Cervical Details Intermittent Axial traction of gentle pull, only enough to relieve pain. Body Position Hooklying Comments Note: pt reports osteopenia. PT-OP-R Modalities Start: 06/23/24 19:42 Freq: Status: Active Protocol: Document 09/08/24 07:31 SP (Rec: 09/08/24 16:21 SP [id number]) Electric Stimulation Electric Stimulation Interferential Current (IFC) Body Location R shoulder (UT>Posterolat scap , Pec Min/Tate at humeral head> Infraspinatus Intensity 9 Target/Sweep Sweep Patient Position Hooklying Combined With Heat/Cold Hot Pack Comments Bolster under knees. MHP for R shoulder, arm supported abd/ER comfort positioning. PT-OP-T Assessment and Plan Start: 06/23/24 19:42 Freq: Status: Active Protocol: Document 09/08/24 07:31 SP (Rec: 09/08/24 08:18 SP [id number]) Physical Therapy Assessment Goals Four Impairment Painful R shoulder AROM (pain reaching out to side, rated 5/ 10) Short Term Goal (STG) Improve R rotator cuff stength to 4/5 with pt able to reach out to the side with pain no greater than 2/10. 07/20/24: non consistant pain seated 1/10 return position. 08/25/24: Able to slowly reach out to side with pain 1. 5-2/10. STG Duration 08/14/24 progressing 08/25/24 Half-Way Goal (LTG) Improve function with pt able to reaching out to side with R UE to cook or ironing with pain no greater than 1/10 ( currently rated 5/10). 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 08/25/24: Can iron 2 pillow cases with pain rated 3.5/10. Becomes intolerable to iron after 2 pillowcases. Can bead 15', but must stop and stretch arm out and walk around to be able to work more . LTG Duration 09/25/24 progressing 08/25/24 Three Impairment R shoulder pain with UE WBing (transferring out of bed) Half-Way Goal (LTG) Improve R shoulder strength with pt able to perform transfers out of bed at prior level of function of being able to weightbear on R shoulder to get out of bed comfortably, using R arm to push self up. 08/25/24: Can push with R shoulder from R sidelie to get up but is difficult, Pain (8 /10) with pushing wgt into R elbow. but has been getting up on L side. LTG Duration 09/25/24 slow progress . Two Impairment R shoulder pain at rest, not tolerating >15', pain rated 7/ 10 Short Term Goal (STG) Pt will be educated in self care pain management techniques (positioning, modalities, ex) to be able to tolerate sitting to watch a 30 minute TV program with pain no greater than 4/10. 08/25/24: Before [place] trip, had to put R arm up on top of sofa in order to tolerate watching TV 20 minutes at a time, pain 8/10. 09/01/24: Discussed and issued handout for pain mgmt with [employer]. STG Duration 08/14/24 progressed 09/01/24 Medical Technologist Blood Bank Goal (LTG) Decrease R shoulder pain to no greater than 1/10 with pt able to sit to watch a 30-60 long TV program w/o having to put R arm above head for pain relief. 08/25/24: Watching TV 20 minutes at a time, pain 8/10. LTG Duration 09/25/24 One Impairment Pt lacks appropriate self care HEP. Short Term Goal (STG) Pt will be educated and will be able to position at nighttime to tolerate side sleeping on either side for a restful period of sleep. (Late entry) 06/30/24: I/S for nighttime head/R UE positioning. 07/06/24: ed use pillows support under R UE and BLEs hooklying. 07/14/24: Pt having more restful sleep. 08/25/24: Pt able to sleep on R side for a restful sleep. Has difficulty sleeping L because of the need to support the arm during sleep. STG Duration 08/14/24 08/25/24: Partially MET GOAL. Half-Way Goal (LTG) Pt will be independent in an effective self care HEP for R shoulder/RC/scapular stabilizers/mainly upper back strengthening and R shoulder mobility ex's in order to mitigate R shoulder pain. ( used to go to ex class 3x/wk, last time was in early May). 07/02/24: HEP: R sleeper stretch, shoulder rolls and depression/retraction, & written I/S shoulder pinches. 07/06/24: added HEP: wall posture, self STMs post neck and UT ball on wall.\ 07/08/24: added resisted shld ER and extension, self STMs use theracane and ball on wall . 08/25/24: Pt has been in [place]; therefore has not able to do HEP. LTG Duration 09/25/24 progressing 07/08/24 Assessment Summary Assessment Tx focused on manual R>L cervical muscular tightness reduction including 1st rib mobility, pec and bicep flexibility along nerve distribution while supported in painfree range on pillow in approx 45 deg abd and ER, most comfortable range. Goodresponse of relaxing gentle manual traction. Verbal review HEP for scap retract/depression and posture HEP. Pt requested continue modalities for assist pain control helps provide relief. Didn't ask specific pain scale rating pre/post, but states pain reduction leaving compared to arrival. Physical Therapy Plan Frequency and Duration Frequency of Treatment 2x/Week Duration of treatment (weeks) 12 Plan of Care Start Date 06/30/24 Plan of Care End Date 09/25/24 Therapeutic Interventions Therapeutic Interventions Home Exercise Program,Manual Therapy,Neuromuscular Re- education,Self-Care/Home Management,Soft Tissue Mobilization,Therapeutic Activities,Therapeutic Exercises Modalities Cold Pack/Ice Massage,Electric Stimulation,Hot Packs Other Referrals/Consults Referrals/Consults Recommended Recommended follow up message to Dr Poole regarding progressed neck and R shld pain especially positional front or at side. Most relief abd /c ER. May need further assessment. Next Visit Focus/Plan Next Note Type Treatment Note Next Visit Plan CHeck if pt has f/u appt with referring physician and identified pain progression. And updated follow up appt with newly established PT, [facility], updated POC dates. Next: End with MH/IFES to R shoulder. Check VA. 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 Discuss use of Heat for pn mgmt. Focus on returning ROM & strength of R shoulder to prior function before her trip. R shoulder impingement/labral dysfunction , ?T/S rot. Educ: Educate in self care pain management techniques ( positioning, modalities, ex) to be able to tolerate sitting for longer periods. POC: Monitor for R shoulder impingement/C. neural involvement. Manual therapy of STM (R UT, Lev scap), & neck/shoulder postural stabilization. Ther Ex for: R shoulder(RC strengthening if tolerated)/neck stability, T/S mobility, & improve posture. Modalities for pain and Education in self care and HEP ([employer]).
--- NOTE | 2024-09-14 15:03 | PT.OTN ---
Current Diagnoses Pain in right shoulder (09/14/24) Lumbago with sciatica, unspecified side (09/14/24) Other shoulder lesions, right shoulder (09/14/24) Physical Therapy Treatment Note PT-OP-A Visit Information Start: 06/23/24 19:42 Freq: Status: Active Protocol: Document 09/14/24 08:16 LR (Rec: 09/14/24 18:21 [facility] [id number]) Out-Patient Physical Therapy Visit Information Visit Information Visit Type Progress Note Visit Start Time 08:19 Visit Stop Time 09:01 Visit Number 11 (09/11 PN) Number of CLEARANCE DIVER Visits 0 PT-OP-B Current Condition Start: 06/23/24 19:42 Freq: Status: Active Protocol: Document 06/30/24 13:48 LRN (Rec: 06/30/24 17:18 LRN [id number]) Current Condition History of Current Condition Onset Date May Current Complaints Pain in R shldr radiating up the neck. Increasing pain when not distracted History of Current Condition Pt states she is interested in having therapy for her R shoulder and neck pain, stating her back is not a problem anymore. Pt reports, maybe because of gardening she started to have throbbing R shoulder pain in the back and radiating up the neck. Her pain has caused her to adjust her sleeping position to mostly sleep on her R side. She c/o she can't sleep on her L side because of R shoulder pain. She reports 2 days ago her R shoulder was slammed by elevator doors, causing her pain to be of greater intensity and up the neck. Prior Treatments and Tests PT for previous shoulder therapy (caroline shoulders both and individual shoulders for pain), for unknown diagnosis (5-20 yrs ago). X-ray (06/03/24) indicates Moderate acromioclavicular glenohumeral arthritic change. Treatment Goals Patient/Caregiver Goals Pt goals: - not able to put weight on R shoulder to get out of bed comfortably using R arm to push self up (used to not have pain, now has pain. - Can't sit to watch TV for more than 10-15' w/o having to put R arm above head. - Pain with reaching out to side with R UE cooking or ironing rated 5/10. - Would like to be able to do home ex's to mitigate the pain . (used to go to ex class 3x/ wk, last time was in early May). 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 Baseline Function- Recreation/Hobbies Used to go to ex class 3x/wk. Baseline Function- Other Slept on both sides w/o pain. Able to get out of bed using R UE comfortably Current Functional Impairments (Reported) Functional Limitations- ADL's Needs help removing her vest. Difficulty getting out of bed due to R shoulder pain. 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 [id number]) OP-PT Subjective Patient Comments Patient Comments not good with exercises. She was gone for a while. She went to her sister's house and her hsuband is chiro and they set her neck and hips and worked on 1st rib. She has a lot more mobility. Still has pain. Migrated to lat arm. Has tried to carry nothing heavy but sometimes difficult. She is able to pull down blinds w/ mild pain PT-OP-G Mobility & Gait Start: 06/23/24 19:42 Freq: Status: Active Protocol: Document 06/30/24 13:48 LRN (Rec: 06/30/24 17:18 [facility] [id number]) OP Mobility Evaluation Bed Mobility Supine to and from Sit Independent, but R shoulder pain when pushing up with RUE. PT-OP-H Neuro Start: 06/23/24 19:42 Freq: Status: Active Protocol: Document 07/02/24 08:20 LRN (Rec: 07/02/24 09:06 [facility] [id number]) Sensation Evaluation Gross Sensation Gross Sensation WNL Deep Tendon Reflex & Clonus Assessment Deep Tendon Reflex Right Brachioradialis Deep Tendon Reflex 1+ Diminished Left Brachioradialis Deep Tendon Reflex 0 Absent Bilateral Tricep Deep Tendon Reflex 0 Absent Right Bicep Deep Tendon Reflex 0 Absent Left Bicep Deep Tendon Reflex 2+ Normal PT-OP-J Posture/Palpation/Skin Start: 06/23/24 19:42 Freq: Status: Active Protocol: Document 06/30/24 13:48 LRN (Rec: 06/30/24 17:18 [facility] [id number]) Posture Evaluation Position Standing Head/C-Spine Posture Forward Head Comments Posture Comments Trunk R shifted, L iliac crest is high, L hsoulder is kassidy, R shoulder retractied. neck straight, increased kyphosis, L side is body is posterior. down rotated and low on right, Palpation Assessment Location R shoulder Palpation Location Supraspinatus, infraspinatus Palpation Findings Muscle Guarding,Tenderness, Trigger Point R neck Palpation Location occiput to shouder (UT). Palpation Findings Muscle Guarding,Tenderness, Trigger Point PT-OP-K Range of Motion Start: 06/23/24 19:42 Freq: Status: Active Protocol: Document 09/14/24 08:16 [facility] (Rec: 09/14/24 18:21 [facility] [id number]) Cervical Spine Range of Motion Cervical Spine Active Degrees Flexion 82 Extension 60 Rotation Left 75 Rotation Right 76 Lateral Flexion Left 46 Lateral Flexion Right 50 Comments discomfort R UT reigon w/ext & w/B rot and L Sb Shoulder Goniometric Range of Motion Shoulder Right Active Shoulder ROM WFL No Testing Position Sitting Flexion 142 Extension 56 Abduction 99 External Rotation at 0 degrees Abduction 65 Internal Rotation Behind Back (text) T10 PT-OP-L Special Tests Start: 06/23/24 19:42 Freq: Status: Active Protocol: Document 09/14/24 08:16 [facility] (Rec: 09/14/24 18:21 [facility] [id number]) Special Tests Cervical Spine Special Tests arterial screening Test Results WNL ausciltation of heart and carotid Comments neg positional testing Traction Comments relief, compression neg Spurling's Test Test Results neg Neural Special Tests- Upper Body Median Nerve Tension Comments neg Radial Nerve Tension Comments neg Ulnar Nerve Tension Comments neg PT-OP-M Strength Start: 06/23/24 19:42 Freq: Status: Active Protocol: Document 08/25/24 10:48 LRN (Rec: 08/25/24 15:04 [facility] [id number]) Shoulder Strength Shoulder Manual Muscle Testing Right Flexion 5 Normal Extension 5 Normal Abduction (C5) 2+ Poor+ External Rotation 2+ Poor+ Internal Rotation 5 Normal Left Flexion 4 Good Extension 5 Normal Abduction (C5) 4 Good External Rotation 5 Normal Internal Rotation 5 Normal PT-OP-Q Treatments Start: 06/23/24 19:42 Freq: Status: Active Protocol: Document 09/14/24 08:16 [facility] (Rec: 09/14/24 18:21 [facility] [id number]) Therapeutic Exercises Sitting Exercises C. AROM stretch Sitting Exercise Name cervial and shoulder AROM Side bilateral Manual Therapy Treatment Consent Patient gave verbal consent for manual Yes treatment Soft Tissue Mobilization abdominal Comments L and R triangular ligaments and post leaf of coronary ligament R Levator Scap Body Location R LS and UT Mobilization Type Rolling Intensity/Depth Moderate Body Position Sidelying Joint Mobilizations thoracic Grade II Body Position Sidelying Comments transverse L T 5 and 6 and UPA R Self-Care/Home Management Treatment Education Other Education 10min: discussed w/pt presentation and anatomy. Edu that restrictions in ribcage and tension cuasing fwd rounded shoulder can put shoulder in position for impingment. Edu how this will be important to work on scap position for improvement in base of shoulder and dec strain also on neck d/t cervical rotaitions etc inc pain into R shoulder, indicating connection PT-OP-R Modalities Start: 06/23/24 19:42 Freq: Status: Active Protocol: Document 09/08/24 07:31 SP (Rec: 09/08/24 16:21 SP [id number]) Electric Stimulation Electric Stimulation Interferential Current (IFC) Body Location R shoulder (UT>Posterolat scap , Pec Min/Tate at humeral head> Infraspinatus Intensity 9 Target/Sweep Sweep Patient Position Hooklying Combined With Heat/Cold Hot Pack Comments Bolster under knees. MHP for R shoulder, arm supported abd/ER comfort positioning. PT-OP-T Assessment and Plan Start: 06/23/24 19:42 Freq: Status: Active Protocol: Document 09/14/24 08:16 [facility] (Rec: 09/14/24 18:21 [facility] [id number]) Physical Therapy Assessment Goals Four Impairment Painful R shoulder AROM (pain reaching out to side, rated 5/ 10) Short Term Goal (STG) Improve R rotator cuff stength to 4/5 with pt able to reach out to the side with pain no greater than 2/10. 11/18/24: non consistant pain seated 1/10 return position. 08/25/24: Able to slowly reach out to side with pain 1. 5-2/10. STG Duration 12 progressing 08/25/24 Box Bender Goal (LTG) Improve function with pt able to reaching out to side with R UE to cook or ironing with pain no greater than 1/10 ( currently rated 5/10). 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 08/25/24: Can iron 2 pillow cases with pain rated 3.5/10. Becomes intolerable to iron after 2 pillowcases. Can bead 15', but must stop and stretch arm out and walk around to be able to work more . LTG Duration 3/10 progressing 08/25/24 Three Impairment R shoulder pain with UE WBing (transferring out of bed) Box Bender Goal (LTG) Improve R shoulder strength with pt able to perform transfers out of bed at prior level of function of being able to weightbear on R shoulder to get out of bed comfortably, using R arm to push self up. 08/25/24: Can push with R shoulder from R sidelie to get up but is difficult, Pain (8 /10) with pushing wgt into R elbow. but has been getting up on L side. LTG Duration 3/10 slow progress 08/25/24. Two Impairment R shoulder pain at rest, not tolerating >15', pain rated 7/ 10 Short Term Goal (STG) Pt will be educated in self care pain management techniques (positioning, modalities, ex) to be able to tolerate sitting to watch a 30 minute TV program with pain no greater than 4/10. 08/25/24: Before [place] trip, had to put R arm up on top of sofa in order to tolerate watching TV 20 minutes at a time, pain 8/10. 09/01/24: Discussed and issued handout for pain mgmt with [employer]. 09/15-still limited and will raise UE to improve pain STG Duration 10/01 progressed 09/01/24 Box Bender Goal (LTG) Decrease R shoulder pain to no greater than 1/10 with pt able to sit to watch a 30-60 long TV program w/o having to put R arm above head for pain relief. 08/25/24: Watching TV 20 minutes at a time, pain 8/. LTG Duration 11/09 One Impairment Pt lacks appropriate self care HEP. Short Term Goal (STG) Pt will be educated and will be able to position at nighttime to tolerate side sleeping on either side for a restful period of sleep. (Late entry) 06/30/24: I/S for nighttime head/R UE positioning. 07/06/24: ed use pillows support under R UE and BLEs hooklying. 07/14/24: Pt having more restful sleep. 08/25/24: Pt able to sleep on R side for a restful sleep. Has difficulty sleeping L because of the need to support the arm during sleep. STG Duration 10/03 Partially MET GOAL. Jail Goal (LTG) Pt will be independent in an effective self care HEP for R shoulder/RC/scapular stabilizers/mainly upper back strengthening and R shoulder mobility ex's in order to mitigate R shoulder pain. ( used to go to ex class 3x/wk, last time was in early May). 07/02/24: HEP: R sleeper stretch, shoulder rolls and depression/retraction, & written I/S shoulder pinches. 07/06/24: added HEP: wall posture, self STMs post neck and UT ball on wall.\ 07/08/24: added resisted shld ER and extension, self STMs use theracane and ball on wall . 08/25/24: Pt has been in [place]; therefore has not able to do HEP. 09/15-will work to restart after return now from trip LTG Duration 11/09 progressing 07/08/24 Assessment Summary Assessment Pt had backtrack w/progress of PT after a trip last month but is improving w/ROM since last measured now and does demonstrate signfiicant restrictions of ribcage and scap likely relating to R shoulder pain d/t scap mechanics along w/ potential for some referral of pain. She has made limited progress d/t dec consistency of PT d/t travels but plans to work w/PT to focus on improving strength and mechanics to dec pain. Likely cervical component as prolonged cervical rotation does cause inc shoudler symptoms. Pt had improved R shoulder abd afer manual to full w/minor painful arc. She would benefit from cont PT to address pain and mobility. Physical Therapy Plan Frequency and Duration Frequency of Treatment 2x/Week Duration of treatment (weeks) 8 Plan of Care Start Date 09/14/24 Plan of Care End Date 11/09/24 Therapeutic Interventions Therapeutic Interventions Home Exercise Program,Manual Therapy,Neuromuscular Re- education,Self-Care/Home Management,Soft Tissue Mobilization,Therapeutic Activities,Therapeutic Exercises Modalities Cold Pack/Ice Massage,Electric Stimulation,Hot Packs Other Referrals/Consults Referrals/Consults Recommended Recommended follow up message to Dr Poole regarding progressed neck and R shld pain especially positional front or at side. Most relief abd /c ER. May need further assessment. -this folllow up given by last PT and CLEARANCE DIVER -pt to follow up in a week Next Visit Focus/Plan Next Note Type Treatment Note Next Visit Plan determine which of pt exercsies to keep; work along R ribcage soft tissue and joints gently, manual to neck gentle, work on thoracic mobility w/exercsies
--- NOTE | 2024-09-17 08:18 | PT.OTN ---
Current Diagnoses Pain in right shoulder (09/17/24) Lumbago with sciatica, unspecified side (09/17/24) Other shoulder lesions, right shoulder (09/17/24) Physical Therapy Treatment Note PT-OP-A Visit Information Start: 06/23/24 19:42 Freq: Status: Active Protocol: Document 09/17/24 07:34 SP (Rec: 09/17/24 08:20 SP [id number]) Out-Patient Physical Therapy Visit Information Visit Information Visit Type Treatment Note Visit Start Time 07:34 Visit Stop Time 08:18 Visit Number 12 (2/10 PN) Number of CREW MEMBER Visits 1 Evaluation Information Evaluation Date 06/30/24 Precautions Precautions Osteopenia, scoliosis, arthritis, thyroid disorder, history of caroline shoulder, & back pain. PMH reported: Concussion 6 yrs ago after being hip by door knob accidently. 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 PT-OP-B Current Condition Start: 06/23/24 19:42 Freq: Status: Active Protocol: Document 06/30/24 13:48 LRN (Rec: 06/30/24 17:18 LRN [id number]) Current Condition History of Current Condition Onset Date May Current Complaints Pain in R shldr radiating up the neck. Increasing pain when not distracted History of Current Condition Pt states she is interested in having therapy for her R shoulder and neck pain, stating her back is not a problem anymore. Pt reports, maybe because of gardening she started to have throbbing R shoulder pain in the back and radiating up the neck. Her pain has caused her to adjust her sleeping position to mostly sleep on her R side. She c/o she can't sleep on her L side because of R shoulder pain. She reports 2 days ago her R shoulder was slammed by elevator doors, causing her pain to be of greater intensity and up the neck. Prior Treatments and Tests PT for previous shoulder therapy (caroline shoulders both and individual shoulders for pain), for unknown diagnosis (5-20 yrs ago). X-ray (06/03/24) indicates Moderate acromioclavicular glenohumeral arthritic change. Treatment Goals Patient/Caregiver Goals Pt goals: - not able to put weight on R shoulder to get out of bed comfortably using R arm to push self up (used to not have pain, now has pain. - Can't sit to watch TV for more than 10-15' w/o having to put R arm above head. - Pain with reaching out to side with R UE cooking or ironing rated 5/10. - Would like to be able to do home ex's to mitigate the pain . (used to go to ex class 3x/ wk, last time was in early May). 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 Baseline Function- Recreation/Hobbies Used to go to ex class 3x/wk. Baseline Function- Other Slept on both sides w/o pain. Able to get out of bed using R UE comfortably Current Functional Impairments (Reported) Functional Limitations- ADL's Needs help removing her vest. Difficulty getting out of bed due to R shoulder pain. 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 She stated had hot shower and iced this am. She worked in [employer] and limted self cut down only 1 ye using linseed cake trimmer without Tylenol or ibuprofen help for pain so was really sore. Feels like her R shld is up and L hip down. SHe had some Reiki session yesterday from daughter. Her BEV and sister chiropractor& alternative therapist did some manual neck and ribcage and felt good for 2 days. PT-OP-G Mobility & Gait Start: 06/23/24 19:42 Freq: Status: Active Protocol: Document 06/30/24 13:48 LRN (Rec: 06/30/24 17:18 LRN [id number]) OP Mobility Evaluation Bed Mobility Supine to and from Sit Independent, but R shoulder pain when pushing up with RUE. PT-OP-H Neuro Start: 06/23/24 19:42 Freq: Status: Active Protocol: Document 07/02/24 08:20 LRN (Rec: 07/02/24 09:06 [facility] [id number]) Sensation Evaluation Gross Sensation Gross Sensation WNL Deep Tendon Reflex & Clonus Assessment Deep Tendon Reflex Right Brachioradialis Deep Tendon Reflex 1+ Diminished Left Brachioradialis Deep Tendon Reflex 0 Absent Bilateral Tricep Deep Tendon Reflex 0 Absent Right Bicep Deep Tendon Reflex 0 Absent Left Bicep Deep Tendon Reflex 2+ Normal PT-OP-J Posture/Palpation/Skin Start: 06/23/24 19:42 Freq: Status: Active Protocol: Document 06/30/24 13:48 LRN (Rec: 06/30/24 17:18 LR [id number]) Posture Evaluation Position Standing Head/C-Spine Posture Forward Head Comments Posture Comments Trunk R shifted, L iliac crest is high, L hsoulder is kassidy, R shoulder retractied. neck straight, increased kyphosis, L side is body is posterior. down rotated and low on right, Palpation Assessment Location R shoulder Palpation Location Supraspinatus, infraspinatus Palpation Findings Muscle Guarding,Tenderness, Trigger Point R neck Palpation Location occiput to shouder (UT). Palpation Findings Muscle Guarding,Tenderness, Trigger Point PT-OP-K Range of Motion Start: 06/23/24 19:42 Freq: Status: Active Protocol: Document 09/14/24 08:16 [facility] (Rec: 09/14/24 18:21 [facility] [id number]) Cervical Spine Range of Motion Cervical Spine Active Degrees Flexion 82 Extension 60 Rotation Left 75 Rotation Right 76 Lateral Flexion Left 46 Lateral Flexion Right 50 Comments discomfort R UT reigon w/ext & w/B rot and L Sb Shoulder Goniometric Range of Motion Shoulder Right Active Shoulder ROM WFL No Testing Position Sitting Flexion 142 Extension 56 Abduction 99 External Rotation at 0 degrees Abduction 65 Internal Rotation Behind Back (text) T10 PT-OP-L Special Tests Start: 06/23/24 19:42 Freq: Status: Active Protocol: Document 09/14/24 08:16 [facility] (Rec: 09/14/24 18:21 [facility] [id number]) Special Tests Cervical Spine Special Tests arterial screening Test Results WNL ausciltation of heart and carotid Comments neg positional testing Traction Comments relief, compression neg Spurling's Test Test Results neg Neural Special Tests- Upper Body Median Nerve Tension Comments neg Radial Nerve Tension Comments neg Ulnar Nerve Tension Comments neg PT-OP-M Strength Start: 06/23/24 19:42 Freq: Status: Active Protocol: Document 08/25/24 10:48 LRN (Rec: 08/25/24 15:04 LRN [id number]) Shoulder Strength Shoulder Manual Muscle Testing Right Flexion 5 Normal Extension 5 Normal Abduction (C5) 2+ Poor+ External Rotation 2+ Poor+ Internal Rotation 5 Normal Left Flexion 4 Good Extension 5 Normal Abduction (C5) 4 Good External Rotation 5 Normal Internal Rotation 5 Normal PT-OP-Q Treatments Start: 06/23/24 19:42 Freq: Status: Active Protocol: Document 09/17/24 07:34 SP (Rec: 09/17/24 08:20 SP [id number]) Therapeutic Exercises Standing Exercises resisted shld ER Standing Exercise Name 90/90 Side bilateral Resistance TB #1 light blue Reps/Minutes 5 reps Comments cued posture, CS retracted neutral resisted shld ext Standing Exercise Name Verbal review AROM vs TB gentle postural review Side bilateral Resistance Tb #1 light blue Reps/Minutes x10 Comments cued posture, rhomboid fac, elbows straight Manual Therapy Treatment Consent Patient gave verbal consent for manual Yes treatment Soft Tissue Mobilization Cervical Paraspinals Body Location R>L Cervical paraspinal, scalene, LS, UT Mobilization Type Myofascial Release,Rolling, Sustained Pressure Intensity/Depth Moderate Body Position Hooklying, L SL Comments gentle pressure glides and breath R Shld Body Location pec major, prox bicep, teres, lat, SA Mobilization Type Rolling,Sustained Pressure, Other Body Position Hooklying Comments STMs and MWM RUE pillow supported 45 deg abd with humeral ER most comfortable positioning for relief. R Levator Scap Body Location R LS and UT Mobilization Type Rolling Intensity/Depth Moderate Body Position L Sidelying Joint Mobilizations R GH Jt Direction PA Grade II Comments during MWM pec, anterior deltoid humeral IR/ ER Manual Traction Cervical Details Intermittent Axial traction of gentle pull, only enough to relieve pain. Body Position Hooklying Comments Note: pt reports osteopenia. Self-Care/Home Management Treatment Education Patient Education Body Mechanics,Joint Protection,Pain Management, Posture,Safety Other Education DIscussed body mechanics hedge trimming, sweeping, sleeping position pillows under head under ribcage, between legs. PT-OP-R Modalities Start: 06/23/24 19:42 Freq: Status: Active Protocol: Document 09/08/24 07:31 SP (Rec: 09/08/24 16:21 SP [id number]) Electric Stimulation Electric Stimulation Interferential Current (IFC) Body Location R shoulder (UT>Posterolat scap , Pec Min/Tate at humeral head> Infraspinatus Intensity 9 Target/Sweep Sweep Patient Position Hooklying Combined With Heat/Cold Hot Pack Comments Bolster under knees. MHP for R shoulder, arm supported abd/ER comfort positioning. PT-OP-T Assessment and Plan Start: 06/23/24 19:42 Freq: Status: Active Protocol: Document 09/17/24 07:34 SP (Rec: 09/17/24 08:20 SP [id number]) Physical Therapy Assessment Goals Four Impairment Painful R shoulder AROM (pain reaching out to side, rated 5/ 10) Short Term Goal (STG) Improve R rotator cuff stength to 4/5 with pt able to reach out to the side with pain no greater than 2/10. 07/20/24: non consistant pain seated 1/10 return position. 08/25/24: Able to slowly reach out to side with pain 1. 5-2/10. STG Duration 08/11 progressing 08/25/24 Alf Goal (LTG) Improve function with pt able to reaching out to side with R UE to cook or ironing with pain no greater than 1/10 ( currently rated 5/10). 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 08/25/24: Can iron 2 pillow cases with pain rated 3.5/10. Becomes intolerable to iron after 2 pillowcases. Can bead 15', but must stop and stretch arm out and walk around to be able to work more . LTG Duration 10 progressing 08/25/24 Three Impairment R shoulder pain with UE WBing (transferring out of bed) Alf Goal (LTG) Improve R shoulder strength with pt able to perform transfers out of bed at prior level of function of being able to weightbear on R shoulder to get out of bed comfortably, using R arm to push self up. 08/25/24: Can push with R shoulder from R sidelie to get up but is difficult, Pain (8 /10) with pushing wgt into R elbow. but has been getting up on L side. LTG Duration 3/10 slow progress 08/25/24. Two Impairment R shoulder pain at rest, not tolerating >15', pain rated 7/ 10 Short Term Goal (STG) Pt will be educated in self care pain management techniques (positioning, modalities, ex) to be able to tolerate sitting to watch a 30 minute TV program with pain no greater than 4/10. 08/25/24: Before [place] trip, had to put R arm up on top of sofa in order to tolerate watching TV 20 minutes at a time, pain 8/10. 09/01/24: Discussed and issued handout for pain mgmt with [employer]. 09/15-still limited and will raise UE to improve pain STG Duration 10/01 progressed 09/01/24 Alf Goal (LTG) Decrease R shoulder pain to no greater than 1/10 with pt able to sit to watch a 30-60 long TV program w/o having to put R arm above head for pain relief. 08/25/24: Watching TV 20 minutes at a time, pain 8/10. LTG Duration 3/10 One Impairment Pt lacks appropriate self care HEP. Short Term Goal (STG) Pt will be educated and will be able to position at nighttime to tolerate side sleeping on either side for a restful period of sleep. (Late entry) 06/30/24: I/S for nighttime head/R UE positioning. 07/06/24: ed use pillows support under R UE and BLEs hooklying. 07/14/24: Pt having more restful sleep. 08/25/24: Pt able to sleep on R side for a restful sleep. Has difficulty sleeping L because of the need to support the arm during sleep. STG Duration 10/03 Partially MET GOAL. Basket Hand Weaver Goal (LTG) Pt will be independent in an effective self care HEP for R shoulder/RC/scapular stabilizers/mainly upper back strengthening and R shoulder mobility ex's in order to mitigate R shoulder pain. ( used to go to ex class 3x/wk, last time was in early May). 07/02/24: HEP: R sleeper stretch, shoulder rolls and depression/retraction, & written I/S shoulder pinches. 07/06/24: added HEP: wall posture, self STMs post neck and UT ball on wall.\ 07/08/24: added resisted shld ER and extension, self STMs use theracane and ball on wall . 08/25/24: Pt has been in [place]; therefore has not able to do HEP. 09/15-will work to restart after return now from trip LTG Duration 11/09 progressing 07/08/24 Assessment Summary Assessment CREW MEMBER provided continued instruction use of pillow support with pt personal pillow brought in for comfort positioning. She reports improvement in decrease R shld pain post manual in abd/ER most comforting position. She has good response to resisted shld ext. She continues to report her Yoga class felt pretty good. Next tx assess motions doing in yoga to guide PT HEP for strength mobility. Physical Therapy Plan Frequency and Duration Frequency of Treatment 2x/Week Duration of treatment (weeks) 8 Plan of Care Start Date 09/14/24 Plan of Care End Date 11/09/24 Therapeutic Interventions Therapeutic Interventions Home Exercise Program,Manual Therapy,Neuromuscular Re- education,Self-Care/Home Management,Soft Tissue Mobilization,Therapeutic Activities,Therapeutic Exercises Modalities Cold Pack/Ice Massage,Electric Stimulation,Hot Packs Other Referrals/Consults Referrals/Consults Recommended Recommended follow up message to Dr Poole regarding progressed neck and R shld pain especially positional front or at side. Most relief abd /c ER. May need further assessment. -this folllow up given by last PT and CREW MEMBER -pt to follow up in a week Next Visit Focus/Plan Next Note Type Treatment Note Next Visit Plan Next tx: determine which of pt exercsies to keep, so far resisted TB Shld ext POC Manual work along R ribcage soft tissue and joints gently, manual to neck gentle , work on thoracic mobility w/ exercsies
--- NOTE | 2024-09-24 09:02 | PT.OTN ---
Current Diagnoses Pain in right shoulder (09/24/24) Lumbago with sciatica, unspecified side (09/24/24) Other shoulder lesions, right shoulder (09/24/24) Physical Therapy Treatment Note PT-OP-A Visit Information Start: 06/23/24 19:42 Freq: Status: Active Protocol: Document 09/24/24 08:22 SP (Rec: 09/24/24 09:08 SP [id number]) Out-Patient Physical Therapy Visit Information Visit Information Visit Type Treatment Note Visit Start Time 08:22 Visit Stop Time 09:02 Visit Number 13 (3/10 PN) Number of QUARRYMAN Visits 2 Evaluation Information Evaluation Date 06/30/24 Precautions Precautions Osteopenia, scoliosis, arthritis, thyroid disorder, history of dimas shoulder, & back pain. PMH reported: Concussion 6 yrs ago after being hip by door knob accidently. 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 PT-OP-B Current Condition Start: 06/23/24 19:42 Freq: Status: Active Protocol: Document 06/30/24 13:48 LRN (Rec: 06/30/24 17:18 LRN [id number]) Current Condition History of Current Condition Onset Date May Current Complaints Pain in R shldr radiating up the neck. Increasing pain when not distracted History of Current Condition Pt states she is interested in having therapy for her R shoulder and neck pain, stating her back is not a problem anymore. Pt reports, maybe because of gardening she started to have throbbing R shoulder pain in the back and radiating up the neck. Her pain has caused her to adjust her sleeping position to mostly sleep on her R side. She c/o she can't sleep on her L side because of R shoulder pain. She reports 2 days ago her R shoulder was slammed by elevator doors, causing her pain to be of greater intensity and up the neck. Prior Treatments and Tests PT for previous shoulder therapy (dimas shoulders both and individual shoulders for pain), for unknown diagnosis (5-20 yrs ago). X-ray (06/03/24) indicates Moderate acromioclavicular glenohumeral arthritic change. Treatment Goals Patient/Caregiver Goals Pt goals: - not able to put weight on R shoulder to get out of bed comfortably using R arm to push self up (used to not have pain, now has pain. - Can't sit to watch TV for more than 10-15' w/o having to put R arm above head. - Pain with reaching out to side with R UE cooking or ironing rated 5/10. - Would like to be able to do home ex's to mitigate the pain . (used to go to ex class 3x/ wk, last time was in early May). 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 Baseline Function- Recreation/Hobbies Used to go to ex class 3x/wk. Baseline Function- Other Slept on both sides w/o pain. Able to get out of bed using R UE comfortably Current Functional Impairments (Reported) Functional Limitations- ADL's Needs help removing her vest. Difficulty getting out of bed due to R shoulder pain. 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 She did some light gardening and no problems and rode in car without needing to grab over head handle to for help relief pain. Neck feeling good. Post injections: CP, no strenuous activities, Tylenol . Dull pain where shot given, notes the knot R posterolateral neck gone with no pain when rubbing area, huge improvement. See goal feedback about pain better controlled/less. She had her DIMAS help neck mobility ( chirpractor). PT-OP-G Mobility & Gait Start: 06/23/24 19:42 Freq: Status: Active Protocol: Document 06/30/24 13:48 LRN (Rec: 06/30/24 17:18 LRN [id number]) OP Mobility Evaluation Bed Mobility Supine to and from Sit Independent, but R shoulder pain when pushing up with RUE. PT-OP-H Neuro Start: 06/23/24 19:42 Freq: Status: Active Protocol: Document 07/02/24 08:20 LRN (Rec: 07/02/24 09:06 [facility] [id number]) Sensation Evaluation Gross Sensation Gross Sensation WNL Deep Tendon Reflex & Clonus Assessment Deep Tendon Reflex Right Brachioradialis Deep Tendon Reflex 1+ Diminished Left Brachioradialis Deep Tendon Reflex 0 Absent Bilateral Tricep Deep Tendon Reflex 0 Absent Right Bicep Deep Tendon Reflex 0 Absent Left Bicep Deep Tendon Reflex 2+ Normal PT-OP-J Posture/Palpation/Skin Start: 06/23/24 19:42 Freq: Status: Active Protocol: Document 06/30/24 13:48 LRN (Rec: 06/30/24 17:18 LR [id number]) Posture Evaluation Position Standing Head/C-Spine Posture Forward Head Comments Posture Comments Trunk R shifted, L iliac crest is high, L hsoulder is kassidy, R shoulder retractied. neck straight, increased kyphosis, L side is body is posterior. down rotated and low on right, Palpation Assessment Location R shoulder Palpation Location Supraspinatus, infraspinatus Palpation Findings Muscle Guarding,Tenderness, Trigger Point R neck Palpation Location occiput to shouder (UT). Palpation Findings Muscle Guarding,Tenderness, Trigger Point PT-OP-K Range of Motion Start: 06/23/24 19:42 Freq: Status: Active Protocol: Document 09/14/24 08:16 [facility] (Rec: 09/14/24 18:21 [facility] [id number]) Cervical Spine Range of Motion Cervical Spine Active Degrees Flexion 82 Extension 60 Rotation Left 75 Rotation Right 76 Lateral Flexion Left 46 Lateral Flexion Right 50 Comments discomfort R UT reigon w/ext & w/B rot and L Sb Shoulder Goniometric Range of Motion Shoulder Right Active Shoulder ROM WFL No Testing Position Sitting Flexion 142 Extension 56 Abduction 99 External Rotation at 0 degrees Abduction 65 Internal Rotation Behind Back (text) T10 PT-OP-L Special Tests Start: 06/23/24 19:42 Freq: Status: Active Protocol: Document 09/14/24 08:16 [facility] (Rec: 09/14/24 18:21 [facility] [id number]) Special Tests Cervical Spine Special Tests arterial screening Test Results WNL ausciltation of heart and carotid Comments neg positional testing Traction Comments relief, compression neg Spurling's Test Test Results neg Neural Special Tests- Upper Body Median Nerve Tension Comments neg Radial Nerve Tension Comments neg Ulnar Nerve Tension Comments neg PT-OP-M Strength Start: 06/23/24 19:42 Freq: Status: Active Protocol: Document 08/25/24 10:48 LRN (Rec: 08/25/24 15:04 LRN [id number]) Shoulder Strength Shoulder Manual Muscle Testing Right Flexion 5 Normal Extension 5 Normal Abduction (C5) 2+ Poor+ External Rotation 2+ Poor+ Internal Rotation 5 Normal Left Flexion 4 Good Extension 5 Normal Abduction (C5) 4 Good External Rotation 5 Normal Internal Rotation 5 Normal PT-OP-Q Treatments Start: 06/23/24 19:42 Freq: Status: Active Protocol: Document 09/24/24 08:22 SP (Rec: 09/24/24 09:08 SP [id number]) Therapeutic Exercises Supine Exercises FF Supine Exercise Name added to HEP /c HO Side right Resistance AROM- cued little protraction & straight elbow during arc Comments improved less anterior shld and bicep Sidelying Exercises ABD Sidelying Exercise Name added to HEP /c HO Side right Resistance AROM pn free range Equipment Used cued straight elbow Reps/Minutes 8 reps Comments cued scap retraction/ depression/UR /c HUmeral ER inf glide- tactile cue open book Sidelying Exercise Name reviewed Side right Resistance tacile cues Low trap /c scap glide add . Reps/Minutes 5 reps Comments good form, pnfree Sitting Exercises FF Sitting Exercise Name self AROM [place]: 155deg- self HEP Side right Reps/Minutes 5 reps Comments good self slight protraction and inf glide Standing Exercises resisted shld ER Standing Exercise Name 90/90-reviewed HEP Side bilateral Resistance TB #1 light blue Reps/Minutes 5 reps Comments cued posture, scap retract/ down Manual Therapy Treatment Consent Patient gave verbal consent for manual Yes treatment Soft Tissue Mobilization R Shld Body Location bicep, deltoid Mobilization Type Rolling,Sustained Pressure, Other Body Position Hooklying Comments STMs and MWM RUE ABD, humeral inferior glide Joint Mobilizations R GH Jt Direction PA Grade II PT-OP-R Modalities Start: 06/23/24 19:42 Freq: Status: Active Protocol: Document 09/08/24 07:31 SP (Rec: 09/08/24 16:21 SP [id number]) Electric Stimulation Electric Stimulation Interferential Current (IFC) Body Location R shoulder (UT>Posterolat scap , Pec Min/Tate at humeral head> Infraspinatus Intensity 9 Target/Sweep Sweep Patient Position Hooklying Combined With Heat/Cold Hot Pack Comments Bolster under knees. MHP for R shoulder, arm supported abd/ER comfort positioning. PT-OP-T Assessment and Plan Start: 06/23/24 19:42 Freq: Status: Active Protocol: Document 09/24/24 08:22 SP (Rec: 09/24/24 09:08 SP [id number]) Physical Therapy Assessment Goals Four Impairment Painful R shoulder AROM (pain reaching out to side, rated 5/ 10) Short Term Goal (STG) Improve R rotator cuff stength to 4/5 with pt able to reach out to the side with pain no greater than 2/10. 07/20/24: non consistant pain seated 1/10 return position. 08/25/24: Able to slowly reach out to side with pain 1. 5-2/10. STG Duration 08/11 progressing 08/25/24 [facility] Goal (LTG) Improve function with pt able to reaching out to side with R UE to cook or ironing with pain no greater than 1/10 ( currently rated 5/10). 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 08/25/24: Can iron 2 pillow cases with pain rated 3.5/10. Becomes intolerable to iron after 2 pillowcases. Can bead 15', but must stop and stretch arm out and walk around to be able to work more . 09/24/24: can reach behind back 4/10 anterior R shld vs 10/10 inpast. LTG Duration 11/09 progressing 09/24/24 Three Impairment R shoulder pain with UE WBing (transferring out of bed) [facility] Goal (LTG) Improve R shoulder strength with pt able to perform transfers out of bed at prior level of function of being able to weightbear on R shoulder to get out of bed comfortably, using R arm to push self up. 08/25/24: Can push with R shoulder from R sidelie to get up but is difficult, Pain (8 /10) with pushing wgt into R elbow. but has been getting up on L side. 09/24/24: met goal, no pain using RUE WB on bed to sit up. LTG Duration 3/10 slow progress 09/24/24. Two Impairment R shoulder pain at rest, not tolerating >15', pain rated 7/ 10 Short Term Goal (STG) Pt will be educated in self care pain management techniques (positioning, modalities, ex) to be able to tolerate sitting to watch a 30 minute TV program with pain no greater than 4/10. 08/25/24: Before [place] trip, had to put R arm up on top of sofa in order to tolerate watching TV 20 minutes at a time, pain 8/10. 09/01/24: Discussed and issued handout for pain mgmt with [employer]. 09/15-still limited and will raise UE to improve pain 09/24/24: puts in position comfort, CP, different oils/ ointments. STG Duration 10/01 progressed 09/24/24 [facility] Goal (LTG) Decrease R shoulder pain to no greater than 1/10 with pt able to sit to watch a 30-60 long TV program w/o having to put R arm above head for pain relief. 08/25/24: Watching TV 20 minutes at a time, pain 8/10. 09/24/24: progressing, no consistant yet: no pain riding in car 25 min and through mtg only need move arm x1 for repositioning 1.5 hrs. LTG Duration 3/10 progressing 09/24/24 One Impairment Pt lacks appropriate self care HEP. Short Term Goal (STG) Pt will be educated and will be able to position at nighttime to tolerate side sleeping on either side for a restful period of sleep. (Late entry) 06/30/24: I/S for nighttime head/R UE positioning. 07/06/24: ed use pillows support under R UE and BLEs hooklying. 07/14/24: Pt having more restful sleep. 08/25/24: Pt able to sleep on R side for a restful sleep. Has difficulty sleeping L because of the need to support the arm during sleep. STG Duration 10/03 Partially MET GOAL. [facility] Goal (LTG) Pt will be independent in an effective self care HEP for R shoulder/RC/scapular stabilizers/mainly upper back strengthening and R shoulder mobility ex's in order to mitigate R shoulder pain. ( used to go to ex class 3x/wk, last time was in early May). 07/02/24: HEP: R sleeper stretch, shoulder rolls and depression/retraction, & written I/S shoulder pinches. 07/06/24: added HEP: wall posture, self STMs post neck and UT ball on wall.\ 07/08/24: added resisted shld ER and extension, self STMs use theracane and ball on wall . 08/25/24: Pt has been in [place]; therefore has not able to do HEP. 09/15-will work to restart after return now from trip LTG Duration 11/09 progressing 07/08/24 Assessment Summary Assessment Pt improved mobiltiy post R GH Jt glides, cues for self performance and elbow straight progressed supine FF, side ABD & HABD slight protraction for increased space scap mob without pain. Removed Ktaping L scap helped LT fac. Physical Therapy Plan Frequency and Duration Frequency of Treatment 2x/Week Duration of treatment (weeks) 8 Plan of Care Start Date 09/14/24 Plan of Care End Date 11/09/24 Therapeutic Interventions Therapeutic Interventions Home Exercise Program,Manual Therapy,Neuromuscular Re- education,Self-Care/Home Management,Soft Tissue Mobilization,Therapeutic Activities,Therapeutic Exercises Modalities Cold Pack/Ice Massage,Electric Stimulation,Hot Packs Other Referrals/Consults Referrals/Consults Recommended Recommended follow up message to Dr Poole regarding progressed neck and R shld pain especially positional front or at side. Most relief abd /c ER. May need further assessment. -this folllow up given by last PT and QUARRYMAN -pt to follow up in a week Next Visit Focus/Plan Next Note Type Treatment Note Next Visit Plan Next tx: determine which of pt exercsies to keep, so far resisted TB Shld ext POC Manual work along R ribcage soft tissue and joints gently, manual to neck gentle , work on thoracic mobility w/ exercsies
--- NOTE | 2024-10-01 08:16 | PT.OTN ---
Current Diagnoses Pain in right shoulder (10/01/24) Lumbago with sciatica, unspecified side (10/01/24) Other shoulder lesions, right shoulder (10/01/24) Physical Therapy Treatment Note PT-OP-A Visit Information Start: 06/23/24 19:42 Freq: Status: Active Protocol: Document 10/01/24 07:33 SP (Rec: 10/01/24 08:17 SP [id number]) Out-Patient Physical Therapy Visit Information Visit Information Visit Type Treatment Note Visit Start Time 07:33 Visit Stop Time 08:16 Visit Number 14 (4/10 PN) Number of SPICE BLENDER Visits 3 Evaluation Information Evaluation Date 06/30/24 Precautions Precautions Osteopenia, scoliosis, arthritis, thyroid disorder, history of caroline shoulder, & back pain. PMH reported: Concussion 6 yrs ago after being hip by door knob accidently. 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 PT-OP-B Current Condition Start: 06/23/24 19:42 Freq: Status: Active Protocol: Document 06/30/24 13:48 LRN (Rec: 06/30/24 17:18 LRN [id number]) Current Condition History of Current Condition Onset Date May Current Complaints Pain in R shldr radiating up the neck. Increasing pain when not distracted History of Current Condition Pt states she is interested in having therapy for her R shoulder and neck pain, stating her back is not a problem anymore. Pt reports, maybe because of gardening she started to have throbbing R shoulder pain in the back and radiating up the neck. Her pain has caused her to adjust her sleeping position to mostly sleep on her R side. She c/o she can't sleep on her L side because of R shoulder pain. She reports 2 days ago her R shoulder was slammed by elevator doors, causing her pain to be of greater intensity and up the neck. Prior Treatments and Tests PT for previous shoulder therapy (caroline shoulders both and individual shoulders for pain), for unknown diagnosis (5-20 yrs ago). X-ray (06/03/24) indicates Moderate acromioclavicular glenohumeral arthritic change. Treatment Goals Patient/Caregiver Goals Pt goals: - not able to put weight on R shoulder to get out of bed comfortably using R arm to push self up (used to not have pain, now has pain. - Can't sit to watch TV for more than 10-15' w/o having to put R arm above head. - Pain with reaching out to side with R UE cooking or ironing rated 5/10. - Would like to be able to do home ex's to mitigate the pain . (used to go to ex class 3x/ wk, last time was in early May). 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 Baseline Function- Recreation/Hobbies Used to go to ex class 3x/wk. Baseline Function- Other Slept on both sides w/o pain. Able to get out of bed using R UE comfortably Current Functional Impairments (Reported) Functional Limitations- ADL's Needs help removing her vest. Difficulty getting out of bed due to R shoulder pain. 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 SInce cortizone shot neck and R shld less pain and more mobility. Uses CP and hot tub. Is doing well with HEP, [employer] classes 2/week with daughter. 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 Wants to focus on neck decreased tension today. PT-OP-G Mobility & Gait Start: 06/23/24 19:42 Freq: Status: Active Protocol: Document 06/30/24 13:48 LRN (Rec: 06/30/24 17:18 LRN [id number]) OP Mobility Evaluation Bed Mobility Supine to and from Sit Independent, but R shoulder pain when pushing up with RUE. PT-OP-H Neuro Start: 06/23/24 19:42 Freq: Status: Active Protocol: Document 07/02/24 08:20 LRN (Rec: 07/02/24 09:06 LR [id number]) Sensation Evaluation Gross Sensation Gross Sensation WNL Deep Tendon Reflex & Clonus Assessment Deep Tendon Reflex Right Brachioradialis Deep Tendon Reflex 1+ Diminished Left Brachioradialis Deep Tendon Reflex 0 Absent Bilateral Tricep Deep Tendon Reflex 0 Absent Right Bicep Deep Tendon Reflex 0 Absent Left Bicep Deep Tendon Reflex 2+ Normal PT-OP-J Posture/Palpation/Skin Start: 06/23/24 19:42 Freq: Status: Active Protocol: Document 06/30/24 13:48 LRN (Rec: 06/30/24 17:18 LR [id number]) Posture Evaluation Position Standing Head/C-Spine Posture Forward Head Comments Posture Comments Trunk R shifted, L iliac crest is high, L hsoulder is kassidy, R shoulder retractied. neck straight, increased kyphosis, L side is body is posterior. down rotated and low on right, Palpation Assessment Location R shoulder Palpation Location Supraspinatus, infraspinatus Palpation Findings Muscle Guarding,Tenderness, Trigger Point R neck Palpation Location occiput to shouder (UT). Palpation Findings Muscle Guarding,Tenderness, Trigger Point PT-OP-K Range of Motion Start: 06/23/24 19:42 Freq: Status: Active Protocol: Document 09/14/24 08:16 [facility] (Rec: 09/14/24 18:21 [facility] [id number]) Cervical Spine Range of Motion Cervical Spine Active Degrees Flexion 82 Extension 60 Rotation Left 75 Rotation Right 76 Lateral Flexion Left 46 Lateral Flexion Right 50 Comments discomfort R UT reigon w/ext & w/B rot and L Sb Shoulder Goniometric Range of Motion Shoulder Right Active Shoulder ROM WFL No Testing Position Sitting Flexion 142 Extension 56 Abduction 99 External Rotation at 0 degrees Abduction 65 Internal Rotation Behind Back (text) T10 PT-OP-L Special Tests Start: 06/23/24 19:42 Freq: Status: Active Protocol: Document 09/14/24 08:16 [facility] (Rec: 09/14/24 18:21 [facility] [id number]) Special Tests Cervical Spine Special Tests arterial screening Test Results WNL ausciltation of heart and carotid Comments neg positional testing Traction Comments relief, compression neg Spurling's Test Test Results neg Neural Special Tests- Upper Body Median Nerve Tension Comments neg Radial Nerve Tension Comments neg Ulnar Nerve Tension Comments neg PT-OP-M Strength Start: 06/23/24 19:42 Freq: Status: Active Protocol: Document 08/25/24 10:48 LRN (Rec: 08/25/24 15:04 LRN [id number]) Shoulder Strength Shoulder Manual Muscle Testing Right Flexion 5 Normal Extension 5 Normal Abduction (C5) 2+ Poor+ External Rotation 2+ Poor+ Internal Rotation 5 Normal Left Flexion 4 Good Extension 5 Normal Abduction (C5) 4 Good External Rotation 5 Normal Internal Rotation 5 Normal PT-OP-Q Treatments Start: 06/23/24 19:42 Freq: Status: Active Protocol: Document 10/01/24 07:33 SP (Rec: 10/01/24 08:17 SP [id number]) Therapeutic Exercises Supine Exercises FF Supine Exercise Name reviewed Side right Resistance AROM- cued little protraction & straight elbow during arc Reps/Minutes 10 reps Comments improved less anterior shld and bicep Sidelying Exercises ABD Sidelying Exercise Name reviewed Side right Resistance AROM pn free range Equipment Used cued straight elbow Reps/Minutes 8 reps Comments cued scap retraction/ depression/UR /c HUmeral ER inf glide- tactile cue open book Sidelying Exercise Name reviewed Side right Resistance tacile cues Low trap /c scap glide add . Reps/Minutes 8 reps Comments good form, pnfree Sitting Exercises cross body stretch Sitting Exercise Name added to HEP Side right Reps/Minutes 30 SH Standing Exercises IR/Ecc ER 90/90 Standing Exercise Name added to HEP Side right Resistance TB #1 Reps/Minutes 8 reps Comments cued 90 deg ABD resisted shld ER Standing Exercise Name 90/90-reviewed HEP Side bilateral Resistance TB #1 light blue Reps/Minutes 3 reps Comments challenging and over UT recruitment on R- Hold resisted shld ext Standing Exercise Name Verbal review AROM vs TB gentle postural review Side bilateral Resistance Tb #1 light blue Reps/Minutes x10 Comments cued posture, rhomboid fac, elbows straight Manual Therapy Treatment Consent Patient gave verbal consent for manual Yes treatment Soft Tissue Mobilization Cervical Paraspinals Body Location R>L Cervical paraspinal, scalene, LS, UT Mobilization Type Myofascial Release,Rolling, Sustained Pressure Intensity/Depth Moderate Body Position Hooklying, L SL Comments gentle pressure glides and breath MWM head nods/turns R UT and Cervical paraspinal. R Shld Body Location bicep, deltoid Mobilization Type Rolling,Sustained Pressure, Other Body Position Hooklying Comments STMs and MWM RUE ABD, humeral inferior glide Joint Mobilizations AC jt Joint R Comments gapping pre and with ABD partial range R GH Jt Direction PA, inferior glide Grade II Comments manual and during mobility 1st rib Joint R first rib Direction Inferior glide Body Position Hooklying Comments inf /c FF PT-OP-R Modalities Start: 06/23/24 19:42 Freq: Status: Active Protocol: Document 09/08/24 07:31 SP (Rec: 09/08/24 16:21 SP [id number]) Electric Stimulation Electric Stimulation Interferential Current (IFC) Body Location R shoulder (UT>Posterolat scap , Pec Min/Tate at humeral head> Infraspinatus Intensity 9 Target/Sweep Sweep Patient Position Hooklying Combined With Heat/Cold Hot Pack Comments Bolster under knees. MHP for R shoulder, arm supported abd/ER comfort positioning. PT-OP-T Assessment and Plan Start: 06/23/24 19:42 Freq: Status: Active Protocol: Document 10/01/24 07:33 SP (Rec: 10/01/24 08:17 SP [id number]) Physical Therapy Assessment Goals Four Impairment Painful R shoulder AROM (pain reaching out to side, rated 5/ 10) Short Term Goal (STG) Improve R rotator cuff stength to 4/5 with pt able to reach out to the side with pain no greater than 2/10. 07/20/24: non consistant pain seated 1/10 return position. 08/25/24: Able to slowly reach out to side with pain 1. 5-2/10. STG Duration 08/11 progressing 08/25/24 Detention Goal (LTG) Improve function with pt able to reaching out to side with R UE to cook or ironing with pain no greater than 1/10 ( currently rated 5/10). 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 08/25/24: Can iron 2 pillow cases with pain rated 3.5/10. Becomes intolerable to iron after 2 pillowcases. Can bead 15', but must stop and stretch arm out and walk around to be able to work more . 09/24/24: can reach behind back 4/10 anterior R shld vs 10/10 inpast. LTG Duration 3/ progressing 09/24/24 Three Impairment R shoulder pain with UE WBing (transferring out of bed) Employer Relations Representative Goal (LTG) Improve R shoulder strength with pt able to perform transfers out of bed at prior level of function of being able to weightbear on R shoulder to get out of bed comfortably, using R arm to push self up. 08/25/24: Can push with R shoulder from R sidelie to get up but is difficult, Pain (8 /10) with pushing wgt into R elbow. but has been getting up on L side. 09/24/24: met goal, no pain using RUE WB on bed to sit up. LTG Duration 3/ slow progress 09/24/24. Two Impairment R shoulder pain at rest, not tolerating >15', pain rated 7/ 10 Short Term Goal (STG) Pt will be educated in self care pain management techniques (positioning, modalities, ex) to be able to tolerate sitting to watch a 30 minute TV program with pain no greater than 4/10. 08/25/24: Before [place] trip, had to put R arm up on top of sofa in order to tolerate watching TV 20 minutes at a time, pain 8/10. 09/01/24: Discussed and issued handout for pain mgmt with [employer]. 09/15-still limited and will raise UE to improve pain 09/24/24: puts in position comfort, CP, different oils/ ointments. STG Duration 10/01 progressed 09/24/24 Detention Goal (LTG) Decrease R shoulder pain to no greater than 1/10 with pt able to sit to watch a 30-60 long TV program w/o having to put R arm above head for pain relief. 08/25/24: Watching TV 20 minutes at a time, pain 8/10. 09/24/24: progressing, no consistant yet: no pain riding in car 25 min and through mtg only need move arm x1 for repositioning 1.5 hrs. LTG Duration 3/ progressing 09/24/24 One Impairment Pt lacks appropriate self care HEP. Short Term Goal (STG) Pt will be educated and will be able to position at nighttime to tolerate side sleeping on either side for a restful period of sleep. (Late entry) 06/30/24: I/S for nighttime head/R UE positioning. 07/06/24: ed use pillows support under R UE and BLEs hooklying. 07/14/24: Pt having more restful sleep. 08/25/24: Pt able to sleep on R side for a restful sleep. Has difficulty sleeping L because of the need to support the arm during sleep. STG Duration 10/03 Partially MET GOAL. Employer Relations Representative Goal (LTG) Pt will be independent in an effective self care HEP for R shoulder/RC/scapular stabilizers/mainly upper back strengthening and R shoulder mobility ex's in order to mitigate R shoulder pain. ( used to go to ex class 3x/wk, last time was in early May). 07/02/24: HEP: R sleeper stretch, shoulder rolls and depression/retraction, & written I/S shoulder pinches. 07/06/24: added HEP: wall posture, self STMs post neck and UT ball on wall.\ 07/08/24: added resisted shld ER and extension, self STMs use theracane and ball on wall . 08/25/24: Pt has been in [place]; therefore has not able to do HEP. 09/15-will work to restart after return now from trip LTG Duration 11/09 progressing 07/08/24 Assessment Summary Assessment Pt reduction R UT/CS paraspinal mm tension post manual. Continued SL AROM R UE with tactile cues inferior glide and UR elbow straight scap add/depression glide to decrease UT compensations. Added cross body post scap/GH Jt stretch to improve OH motion support carryover at home. Progressed resisted 90/ 90 humeral IR/eccentric ER RUE to allow for donning jacket. Pt is also responding well to yoga with daughter's class with modifications as needed for safety, gets good cuing for proper form. Physical Therapy Plan Frequency and Duration Frequency of Treatment 2x/Week Duration of treatment (weeks) 8 Plan of Care Start Date 09/14/24 Plan of Care End Date 11/09/24 Therapeutic Interventions Therapeutic Interventions Home Exercise Program,Manual Therapy,Neuromuscular Re- education,Self-Care/Home Management,Soft Tissue Mobilization,Therapeutic Activities,Therapeutic Exercises Modalities Cold Pack/Ice Massage,Electric Stimulation,Hot Packs Other Referrals/Consults Referrals/Consults Recommended Recommended follow up message to Dr Poole regarding progressed neck and R shld pain especially positional front or at side. Most relief abd /c ER. May need further assessment. -this folllow up given by last PT and SPICE BLENDER -pt to follow up in a week Next Visit Focus/Plan Next Note Type Treatment Note Next Visit Plan Next tx: determine which of pt exercsies to keep, so far resisted TB Shld ext, recheck 90/90 IR/ ecc ER. Trial Ys off wall and progress standing flex/abd or over foam roller. POC Manual work along R ribcage soft tissue and joints gently, manual to neck gentle , work on thoracic mobility w/ exercsies
--- NOTE | 2024-10-07 18:05 | PT.OTN ---
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 Increasing pain when not distracted History of Current Condition Pt states she is interested in having therapy for her R shoulder and neck pain, stating her back is not a problem anymore. Pt reports, maybe because of gardening she started to have throbbing R shoulder pain in the back and radiating up the neck. Her pain has caused her to adjust her sleeping position to mostly sleep on her R side. She c/o she can't sleep on her L side because of R shoulder pain. She reports 2 days ago her R shoulder was slammed by elevator doors, causing her pain to be of greater intensity and up the neck. Prior Treatments and Tests PT for previous shoulder therapy (caroline shoulders both and individual shoulders for pain), for unknown diagnosis (5-20 yrs ago). X-ray (06/03/24) indicates Moderate acromioclavicular glenohumeral arthritic change. Treatment Goals Patient/Caregiver Goals Pt goals: - not able to put weight on R shoulder to get out of bed comfortably using R arm to push self up (used to not have pain, now has pain. - Can't sit to watch TV for more than 10-15' w/o having to put R arm above head. - Pain with reaching out to side with R UE cooking or ironing rated 5/10. - Would like to be able to do home ex's to mitigate the pain . (used to go to ex class 3x/ wk, last time was in early May). 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 Baseline Function- Recreation/Hobbies Used to go to ex class 3x/wk. Baseline Function- Other Slept on both sides w/o pain. Able to get out of bed using R UE comfortably Current Functional Impairments (Reported) Functional Limitations- ADL's Needs help removing her vest. Difficulty getting out of bed due to R shoulder pain. 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 doing her exercises and doing yoga 2 day a week. In the process of getting a new mattress. L shoulder is starting to hurt. Unsure if its d/t laying on it more. PT-OP-G Mobility & Gait Start: 06/23/24 19:42 Freq: Status: Active Protocol: Document 06/30/24 13:48 LRN (Rec: 06/30/24 17:18 [facility] [id number]) OP Mobility Evaluation Bed Mobility Supine to and from Sit Independent, but R shoulder pain when pushing up with RUE. PT-OP-H Neuro Start: 06/23/24 19:42 Freq: Status: Active Protocol: Document 07/02/24 08:20 LRN (Rec: 07/02/24 09:06 [facility] [id number]) Sensation Evaluation Gross Sensation Gross Sensation WNL Deep Tendon Reflex & Clonus Assessment Deep Tendon Reflex Right Brachioradialis Deep Tendon Reflex 1+ Diminished Left Brachioradialis Deep Tendon Reflex 0 Absent Bilateral Tricep Deep Tendon Reflex 0 Absent Right Bicep Deep Tendon Reflex 0 Absent Left Bicep Deep Tendon Reflex 2+ Normal PT-OP-J Posture/Palpation/Skin Start: 06/23/24 19:42 Freq: Status: Active Protocol: Document 06/30/24 13:48 LRN (Rec: 06/30/24 17:18 [facility]N [id number]) Posture Evaluation Position Standing Head/C-Spine Posture Forward Head Comments Posture Comments Trunk R shifted, L iliac crest is high, L hsoulder is kassidy, R shoulder retractied. neck straight, increased kyphosis, L side is body is posterior. down rotated and low on right, Palpation Assessment Location R shoulder Palpation Location Supraspinatus, infraspinatus Palpation Findings Muscle Guarding,Tenderness, Trigger Point R neck Palpation Location occiput to shouder (UT). Palpation Findings Muscle Guarding,Tenderness, Trigger Point PT-OP-K Range of Motion Start: 06/23/24 19:42 Freq: Status: Active Protocol: Document 10/07/24 11:34 [facility] (Rec: 10/07/24 18:05 [facility] [id number]) Shoulder Goniometric Range of Motion Shoulder Right Active Shoulder ROM WFL No Testing Position Sitting Flexion 152 Extension 56 Abduction 149 External Rotation at 0 degrees Abduction 70 Internal Rotation Behind Back (text) T8 Left Active Testing Position Sitting Flexion 138 Extension 46 Abduction 93 External Rotation at 0 degrees Abduction 54 Internal Rotation Behind Back (text) L1 PT-OP-L Special Tests Start: 06/23/24 19:42 Freq: Status: Active Protocol: Document 09/14/24 08:16 [facility] (Rec: 09/14/24 18:21 [facility] [id number]) Special Tests Cervical Spine Special Tests arterial screening Test Results WNL ausciltation of heart and carotid Comments neg positional testing Traction Comments relief, compression neg Spurling's Test Test Results neg Neural Special Tests- Upper Body Median Nerve Tension Comments neg Radial Nerve Tension Comments neg Ulnar Nerve Tension Comments neg PT-OP-M Strength Start: 06/23/24 19:42 Freq: Status: Active Protocol: Document 10/07/24 11:34 [facility] (Rec: 10/07/24 18:05 [facility] [id number]) Shoulder Strength Shoulder Manual Muscle Testing Right Flexion 5 Normal Extension 5 Normal Abduction (C5) 4 Good External Rotation 4- Good- Internal Rotation 5 Normal Left Flexion 4- Good- Extension 4- Good- Abduction (C5) 3- Fair- External Rotation 4- Good- Internal Rotation 4 Good PT-OP-Q Treatments Start: 06/23/24 19:42 Freq: Status: Active Protocol: Document 10/07/24 11:34 [facility] (Rec: 10/07/24 18:05 [facility] [id number]) Therapeutic Exercises Sitting Exercises AROM/isometrics Sitting Exercise Name B shoulder AROM and MMT Side bilateral Standing Exercises IR/Ecc ER 90/90 Standing Exercise Name review HEP Side bilateral Resistance TB #1 Reps/Minutes 8 reps Comments cued 90 deg ABD and contolled motion resisted shld ER Side bilateral Equipment Used L1 Reps/Minutes 10 Comments cues elbows in and control Other Exercises Self STMs Other Exercise Name review w/ scap mm Side bilateral Manual Therapy Treatment Consent Patient gave verbal consent for manual Yes treatment Soft Tissue Mobilization thoracic Body Location B paraspinals Mobilization Type Rolling Intensity/Depth Superficial Joint Mobilizations ribs Comments L external torsion rib 6 R GH Jt Joint R post, inf and distraction thoracic Grade II Body Position Sitting Comments T1-3 PA PT-OP-R Modalities Start: 06/23/24 19:42 Freq: Status: Active Protocol: Document 09/08/24 07:31 SP (Rec: 09/08/24 16:21 SP [id number]) Electric Stimulation Electric Stimulation Interferential Current (IFC) Body Location R shoulder (UT>Posterolat scap , Pec Min/Tate at humeral head> Infraspinatus Intensity 9 Target/Sweep Sweep Patient Position Hooklying Combined With Heat/Cold Hot Pack Comments Bolster under knees. MHP for R shoulder, arm supported abd/ER comfort positioning. PT-OP-T Assessment and Plan Start: 06/23/24 19:42 Freq: Status: Active Protocol: Document 10/07/24 11:34 [facility] (Rec: 10/07/24 18:05 [facility] [id number]) Physical Therapy Assessment Goals Four Impairment Painful R shoulder AROM (pain reaching out to side, rated 5/ 10) Short Term Goal (STG) Improve R rotator cuff stength to 4/5 with pt able to reach out to the side with pain no greater than 2/10. 07/20/24: non consistant pain seated 1/10 return position. 08/25/24: Able to slowly reach out to side with pain 1. 5-2/10. 2/5-improving STG Duration 08/11 progressing Bag Cutter Goal (LTG) Improve function with pt able to reaching out to side with R UE to cook or ironing with pain no greater than 1/10 ( currently rated 5/10). 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 08/25/24: Can iron 2 pillow cases with pain rated 3.5/10. Becomes intolerable to iron after 2 pillowcases. Can bead 15', but must stop and stretch arm out and walk around to be able to work more . 09/24/24: can reach behind back 4/10 anterior R shld vs 10 inpast. 10/07-improving tolerance w/ROM LTG Duration 11/09 progressing 09/24/24 Three Impairment R shoulder pain with UE WBing (transferring out of bed) Bag Cutter Goal (LTG) Improve R shoulder strength with pt able to perform transfers out of bed at prior level of function of being able to weightbear on R shoulder to get out of bed comfortably, using R arm to push self up. 08/25/24: Can push with R shoulder from R sidelie to get up but is difficult, Pain (8 /10) with pushing wgt into R elbow. but has been getting up on L side. 09/24/24: met goal, no pain using RUE WB on bed to sit up. LTG Duration achieved 09/24 Two Impairment R shoulder pain at rest, not tolerating >15', pain rated 7/ 10 Short Term Goal (STG) Pt will be educated in self care pain management techniques (positioning, modalities, ex) to be able to tolerate sitting to watch a 30 minute TV program with pain no greater than 4/10. 08/25/24: Before [place] trip, had to put R arm up on top of sofa in order to tolerate watching TV 20 minutes at a time, pain 8/10. 09/01/24: Discussed and issued handout for pain mgmt with [employer]. 09/15-still limited and will raise UE to improve pain 09/24/24: puts in position comfort, CP, different oils/ ointments. STG Duration achieved 2/5 Bag Cutter Goal (LTG) Decrease R shoulder pain to no greater than 1/10 with pt able to sit to watch a 30-60 long TV program w/o having to put R arm above head for pain relief. 08/25/24: Watching TV 20 minutes at a time, pain 04/11. 09/24/24: progressing, no consistant yet: no pain riding in car 25 min and through mtg only need move arm x1 for repositioning 1.5 hrs. 10/07-notes much improvement LTG Duration 11/09 progressing 09/24/24 One Impairment Pt lacks appropriate self care HEP. Short Term Goal (STG) Pt will be educated and will be able to position at nighttime to tolerate side sleeping on either side for a restful period of sleep. (Late entry) 06/30/24: I/S for nighttime head/R UE positioning. 07/06/24: ed use pillows support under R UE and BLEs hooklying. 07/14/24: Pt having more restful sleep. 08/25/24: Pt able to sleep on R side for a restful sleep. Has difficulty sleeping L because of the need to support the arm during sleep. STG Duration 10/03 Partially MET GOAL. Bag Cutter Goal (LTG) Pt will be independent in an effective self care HEP for R shoulder/RC/scapular stabilizers/mainly upper back strengthening and R shoulder mobility ex's in order to mitigate R shoulder pain. ( used to go to ex class 3x/wk, last time was in early May). 07/02/24: HEP: R sleeper stretch, shoulder rolls and depression/retraction, & written I/S shoulder pinches. 07/06/24: added HEP: wall posture, self STMs post neck and UT ball on wall.\ 07/08/24: added resisted shld ER and extension, self STMs use theracane and ball on wall . 08/25/24: Pt has been in [place]; therefore has not able to do HEP. 09/15-will work to restart after return now from trip 10/07-doing well with exercises but needs cues for more advanced ones LTG Duration 11/09 progressing Assessment Summary Assessment Pt making good progress w/ goals w/PT and overall has improved tolerance to activity since injection and w/cont PT interventions. She has noted L shoulder pain and is concerned this is d/t overuse d/t limiting R shoulder mobility to avoid pain.S he cont to be weak on R shoulder and has painful arc noted w/ abd today. She also cont to have inc neck tension likely related to her pain. Cont PT to improve RUE function. Physical Therapy Plan Frequency and Duration Frequency of Treatment 2x/Week Duration of treatment (weeks) 8 Plan of Care Start Date 09/14/24 Plan of Care End Date 11/09/24 Therapeutic Interventions Therapeutic Interventions Home Exercise Program,Manual Therapy,Neuromuscular Re- education,Self-Care/Home Management,Soft Tissue Mobilization,Therapeutic Activities,Therapeutic Exercises Modalities Cold Pack/Ice Massage,Electric Stimulation,Hot Packs Other Referrals/Consults Referrals/Consults Recommended . Next Visit Focus/Plan Next Note Type Treatment Note Next Visit Plan Next tx: determine which of pt exercsies to keep, so far resisted TB Shld ext, recheck 90/90 IR/ ecc ER. Trial Ys off wall and progress standing flex/abd or over foam roller. POC Manual work along R ribcage soft tissue and joints gently, manual to neck gentle , work on thoracic mobility w/ exercsies
--- NOTE | 2024-10-12 14:32 | PT.OTRE ---
Current Diagnoses Pain in right shoulder (10/12/24) Lumbago with sciatica, unspecified side (10/12/24) Other shoulder lesions, right shoulder (10/12/24) Past Medical History (Last Reviewed 05/12/24 @ 06:34 by Eddie Poole MD) Acne Acquired hypothyroidism Anxiety Arthritis Chicken pox Colitis (~1968) Foot pain Frequent UTI (~1968) Hemorrhoid (~1983) Irregular menstrual cycle (~1949) Measles Mixed hyperlipidemia Mumps Osteopenia (~2015) Painful menstrual periods (~1949) Pneumonia Sciatica Shoulder pain (~2013) Vision disorder Surgical History (Last Reviewed 05/12/24 @ 06:34 by Eddie Poole MD) H/O blepharoplasty History of ectopic (~08/1984) History of third molar tooth extraction Visit Care Team Role Provider Type Eddie Poole MD Attending Provider Physician Family Provider Primary Care Provider Referring Provider Specialty: Internal Medicine Address: [address] [place] [address] Email: [email or web address] Physical Therapy Re-Evaluation PT-OP-A Visit Information Start: 06/23/24 19:42 Freq: Status: Active Protocol: Document 10/12/24 10:52 [facility] (Rec: 10/12/24 14:32 [facility] [id number]) Out-Patient Physical Therapy Visit Information Visit Information Visit Type Re-Evaluation Visit Start Time 10:49 Visit Stop Time 11:30 Visit Number 16 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 Increasing pain when not distracted History of Current Condition Pt states she is interested in having therapy for her R shoulder and neck pain, stating her back is not a problem anymore. Pt reports, maybe because of gardening she started to have throbbing R shoulder pain in the back and radiating up the neck. Her pain has caused her to adjust her sleeping position to mostly sleep on her R side. She c/o she can't sleep on her L side because of R shoulder pain. She reports 2 days ago her R shoulder was slammed by elevator doors, causing her pain to be of greater intensity and up the neck. Prior Treatments and Tests PT for previous shoulder therapy (caroline shoulders both and individual shoulders for pain), for unknown diagnosis (5-20 yrs ago). X-ray (06/03/24) indicates Moderate acromioclavicular glenohumeral arthritic change. Treatment Goals Patient/Caregiver Goals Pt goals: - not able to put weight on R shoulder to get out of bed comfortably using R arm to push self up (used to not have pain, now has pain. - Can't sit to watch TV for more than 10-15' w/o having to put R arm above head. - Pain with reaching out to side with R UE cooking or ironing rated 5/10. - Would like to be able to do home ex's to mitigate the pain . (used to go to ex class 3x/ wk, last time was in early May). 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 Baseline Function- Recreation/Hobbies Used to go to ex class 3x/wk. Baseline Function- Other Slept on both sides w/o pain. Able to get out of bed using R UE comfortably Current Functional Impairments (Reported) Functional Limitations- ADL's Needs help removing her vest. Difficulty getting out of bed due to R shoulder pain. 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 Had difficulty with that arm before and did PT prior which helped. PT-OP-G Mobility & Gait Start: 06/23/24 19:42 Freq: Status: Active Protocol: Document 06/30/24 13:48 [facility] (Rec: 06/30/24 17:18 [facility]N [id number]) OP Mobility Evaluation Bed Mobility Supine to and from Sit Independent, but R shoulder pain when pushing up with RUE. PT-OP-H Neuro Start: 06/23/24 19:42 Freq: Status: Active Protocol: Document 07/02/24 08:20 [facility] (Rec: 07/02/24 09:06 [facility] [id number]) Sensation Evaluation Gross Sensation Gross Sensation WNL Deep Tendon Reflex & Clonus Assessment Deep Tendon Reflex Right Brachioradialis Deep Tendon Reflex 1+ Diminished Left Brachioradialis Deep Tendon Reflex 0 Absent Bilateral Tricep Deep Tendon Reflex 0 Absent Right Bicep Deep Tendon Reflex 0 Absent Left Bicep Deep Tendon Reflex 2+ Normal PT-OP-J Posture/Palpation/Skin Start: 06/23/24 19:42 Freq: Status: Active Protocol: Document 06/30/24 13:48 [facility] (Rec: 06/30/24 17:18 [facility] [id number]) Posture Evaluation Position Standing Head/C-Spine Posture Forward Head Comments Posture Comments Trunk R shifted, L iliac crest is high, L hsoulder is kassidy, R shoulder retractied. neck straight, increased kyphosis, L side is body is posterior. down rotated and low on right, Palpation Assessment Location R shoulder Palpation Location Supraspinatus, infraspinatus Palpation Findings Muscle Guarding,Tenderness, Trigger Point R neck Palpation Location occiput to shouder (UT). Palpation Findings Muscle Guarding,Tenderness, Trigger Point PT-OP-K Range of Motion Start: 06/23/24 19:42 Freq: Status: Active Protocol: Document 10/12/24 10:52 [facility] (Rec: 10/12/24 14:32 [facility] [id number]) Cervical Spine Range of Motion Cervical Spine Active Degrees Flexion 54 Extension 64 Rotation Left 64 Rotation Right 76 Lateral Flexion Left 36 Lateral Flexion Right 46 Comments SB contra lat stretch; pain L neck w/rot L Shoulder Goniometric Range of Motion Shoulder Measured in Degrees Right Active Shoulder ROM WFL No Testing Position Sitting Flexion 152 Extension 56 Abduction 149 External Rotation at 0 degrees Abduction 70 Internal Rotation Behind Back (text) T8 Comments 2/5 Left Active Testing Position Sitting Flexion 138 Extension 46 Abduction 93 External Rotation at 0 degrees Abduction 54 Internal Rotation Behind Back (text) L1 Comments 2/5 PT-OP-L Special Tests Start: 06/23/24 19:42 Freq: Status: Active Protocol: Document 10/12/24 10:52 [facility] (Rec: 10/12/24 14:32 [facility] [id number]) Special Tests Shoulder Special Tests Empty Can Comments positive B Speeds Comments neg B NEER Comments positive L [place] Impingement Test Results postiive L [place] Test Test Results positive B Neural Special Tests- Upper Body Median Nerve Tension Comments pain w/L that dec w/SB R Radial Nerve Tension Comments neg Ulnar Nerve Tension Comments positive L PT-OP-M Strength Start: 06/23/24 19:42 Freq: Status: Active Protocol: Document 10/12/24 10:52 [facility] (Rec: 10/12/24 14:32 [facility] [id number]) Shoulder Strength Shoulder Manual Muscle Testing Right Flexion 5 Normal Extension 5 Normal Abduction (C5) 4 Good External Rotation 4- Good- Internal Rotation 5 Normal Comments tested 2/5 B Left Flexion 4- Good- Extension 4- Good- Abduction (C5) 3- Fair- External Rotation 4- Good- Internal Rotation 4 Good PT-OP-Q Treatments Start: 06/23/24 19:42 Freq: Status: Active Protocol: Document 10/12/24 10:52 [facility] (Rec: 10/12/24 14:32 [facility] [id number]) Therapeutic Exercises Standing Exercises IR/Ecc ER 90/90 Standing Exercise Name 90/90 ER w/o resistance Side left Reps/Minutes 6 Comments stopped d/t pain-attempted w/ LUE rested on plinth but still painful Manual Therapy Treatment Consent Patient gave verbal consent for manual Yes treatment Soft Tissue Mobilization thoracic Body Location L rhomboids, lats Mobilization Type Rolling Body Position Sidelying Comments w/scap dep Cervical Paraspinals Body Location L scalenes, LS, UT Mobilization Type Myofascial Release,Rolling, Sustained Pressure Intensity/Depth Moderate Body Position s/l Comments w/scap dep Joint Mobilizations AC jt Joint L Comments ant clavicle w/scap elevation R GH Jt Comments L post glide, inf glide, distraction & lat gapping c/r PT-OP-R Modalities Start: 06/23/24 19:42 Freq: Status: Active Protocol: Document 09/08/24 07:31 SP (Rec: 09/08/24 16:21 SP [id number]) Electric Stimulation Electric Stimulation Interferential Current (IFC) Body Location R shoulder (UT>Posterolat scap , [place]/Tate at humeral head> Infraspinatus Intensity 9 Target/Sweep Sweep Patient Position Hooklying Combined With Heat/Cold Hot Pack Comments Bolster under knees. MHP for R shoulder, arm supported abd/ER comfort positioning. PT-OP-T Assessment and Plan Start: 06/23/24 19:42 Freq: Status: Active Protocol: Document 10/12/24 10:52 [facility] (Rec: 10/12/24 14:32 [facility] [id number]) Physical Therapy Assessment Goals activity Short Term Goal (STG) Pt will be able do do beading as needed w/o inc pain in shoulder. STG Duration 11/14 Detention Goal (LTG) Pt be able to do all yoga and reaching including jimena pose w/o pain in shoulders LTG Duration 47 Four Impairment Painful R shoulder AROM (pain reaching out to side, rated 5/ 10) Short Term Goal (STG) Improve B rotator cuff stength to 4/5 with pt able to reach out to the side with pain no greater than 2/10. 07/20/24: non consistant pain seated 1/10 return position. 08/25/24: Able to slowly reach out to side with pain 1. 5-2/10. 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 08/25/24: Can iron 2 pillow cases with pain rated 3.5/10. Becomes intolerable to iron after 2 pillowcases. Can bead 15', but must stop and stretch arm out and walk around to be able to work more . 09/24/24: can reach behind back 4/10 anterior R shld vs 1010 inpast. 2/5-improving tolerance w/ROM LTG Duration 12/07 Three Impairment R shoulder pain with UE WBing (transferring out of bed) Field Artillery Operations Specialist Goal (LTG) Improve R shoulder strength with pt able to perform transfers out of bed at prior level of function of being able to weightbear on R shoulder to get out of bed comfortably, using R arm to push self up. 08/25/24: Can push with R shoulder from R sidelie to get up but is difficult, Pain (8 /10) with pushing wgt into R elbow. but has been getting up on L side. 09/24/24: met goal, no pain using RUE WB on bed to sit up. LTG Duration achieved 09/24 Two Impairment R shoulder pain at rest, not tolerating >15', pain rated 7/ 10 Short Term Goal (STG) Pt will be educated in self care pain management techniques (positioning, modalities, ex) to be able to tolerate sitting to watch a 30 minute TV program with pain no greater than 4/10. 08/25/24: Before [place] trip, had to put R arm up on top of sofa in order to tolerate watching TV 20 minutes at a time, pain 8/10. 09/01/24: Discussed and issued handout for pain mgmt with [employer]. 09/15-still limited and will raise UE to improve pain 09/24/24: puts in position comfort, CP, different oils/ ointments. STG Duration achieved 2/5 Field Artillery Operations Specialist Goal (LTG) Decrease R shoulder pain to no greater than 1/10 with pt able to sit to watch a 30-60 long TV program w/o having to put R arm above head for pain relief. 08/25/24: Watching TV 20 minutes at a time, pain 8/10. 09/24/24: progressing, no consistant yet: no pain riding in car 25 min and through mtg only need move arm x1 for repositioning 1.5 hrs. 2-notes much improvement LTG Duration achieved 2/10 One Impairment Pt lacks appropriate self care HEP. Short Term Goal (STG) Pt will be educated and will be able to position at nighttime to tolerate side sleeping on either side for a restful period of sleep. (Late entry) 06/30/24: I/S for nighttime head/R UE positioning. 11/4/24: ed use pillows support under R UE and BLEs hooklying. 07/14/24: Pt having more restful sleep. 08/25/24: Pt able to sleep on R side for a restful sleep. Has difficulty sleeping L because of the need to support the arm during sleep. STG Duration MET GOAL. Detention Goal (LTG) Pt will be independent in an effective self care HEP for R shoulder/RC/scapular stabilizers/mainly upper back strengthening and R shoulder mobility ex's in order to mitigate R shoulder pain. ( used to go to ex class 3x/wk, last time was in early May). 07/02/24: HEP: R sleeper stretch, shoulder rolls and depression/retraction, & written I/S shoulder pinches. 07/06/24: added HEP: wall posture, self STMs post neck and UT ball on wall.\ 07/08/24: added resisted shld ER and extension, self STMs use theracane and ball on wall . 08/25/24: Pt has been in [place]; therefore has not able to do HEP. 09/15-will work to restart after return now from trip 10/07-doing well with exercises but needs cues for more advanced ones LTG Duration 12/07 Assessment Summary Assessment Pt presents w/re-eval w/recent onset of L shoulder pain which pt thinks may be d/t inc use of LUE to offload RUE. Positive testing w/ supraspinatus B and positive impingement signs on L side which are likely creating her symptoms. She does have neck limitations that are likely playing into this also. cont PT for B shoulder pain and improving pt function. Physical Therapy Plan Frequency and Duration Frequency of Treatment 2x/Week Duration of treatment (weeks) 8 Plan of Care Start Date 10/12/24 Plan of Care End Date 12/07/24 Therapeutic Interventions Therapeutic Interventions Home Exercise Program,Joint Mobilizations,Manual Therapy, Neuromuscular Re-education, Patient/Caregiver Education, Self-Care/Home Management,Soft Tissue Mobilization,Taping, Therapeutic Activities, Therapeutic Exercises Modalities Cold Pack/Ice Massage,Electric Stimulation,Hot Packs Next Visit Focus/Plan Next Note Type Treatment Note Next Visit Plan recheck exercises; avoid painful exercises Work on B shoulder mechanics and manual improve full ROM
--- NOTE | 2024-10-15 12:31 | PT.OTN ---
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 Increasing pain when not distracted History of Current Condition Pt states she is interested in having therapy for her R shoulder and neck pain, stating her back is not a problem anymore. Pt reports, maybe because of gardening she started to have throbbing R shoulder pain in the back and radiating up the neck. Her pain has caused her to adjust her sleeping position to mostly sleep on her R side. She c/o she can't sleep on her L side because of R shoulder pain. She reports 2 days ago her R shoulder was slammed by elevator doors, causing her pain to be of greater intensity and up the neck. Prior Treatments and Tests PT for previous shoulder therapy (caroline shoulders both and individual shoulders for pain), for unknown diagnosis (5-20 yrs ago). X-ray (06/03/24) indicates Moderate acromioclavicular glenohumeral arthritic change. Treatment Goals Patient/Caregiver Goals Pt goals: - not able to put weight on R shoulder to get out of bed comfortably using R arm to push self up (used to not have pain, now has pain. - Can't sit to watch TV for more than 10-15' w/o having to put R arm above head. - Pain with reaching out to side with R UE cooking or ironing rated 5/10. - Would like to be able to do home ex's to mitigate the pain . (used to go to ex class 3x/ wk, last time was in early May). 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 Baseline Function- Recreation/Hobbies Used to go to ex class 3x/wk. Baseline Function- Other Slept on both sides w/o pain. Able to get out of bed using R UE comfortably Current Functional Impairments (Reported) Functional Limitations- ADL's Needs help removing her vest. Difficulty getting out of bed due to R shoulder pain. 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 L shoulder feels better. PT-OP-G Mobility & Gait Start: 06/23/24 19:42 Freq: Status: Active Protocol: Document 06/30/24 13:48 LRN (Rec: 06/30/24 17:18 [facility] [id number]) OP Mobility Evaluation Bed Mobility Supine to and from Sit Independent, but R shoulder pain when pushing up with RUE. PT-OP-H Neuro Start: 06/23/24 19:42 Freq: Status: Active Protocol: Document 07/02/24 08:20 LRN (Rec: 07/02/24 09:06 [facility] [id number]) Sensation Evaluation Gross Sensation Gross Sensation WNL Deep Tendon Reflex & Clonus Assessment Deep Tendon Reflex Right Brachioradialis Deep Tendon Reflex 1+ Diminished Left Brachioradialis Deep Tendon Reflex 0 Absent Bilateral Tricep Deep Tendon Reflex 0 Absent Right Bicep Deep Tendon Reflex 0 Absent Left Bicep Deep Tendon Reflex 2+ Normal PT-OP-J Posture/Palpation/Skin Start: 06/23/24 19:42 Freq: Status: Active Protocol: Document 06/30/24 13:48 [facility] (Rec: 06/30/24 17:18 [facility] [id number]) Posture Evaluation Position Standing Head/C-Spine Posture Forward Head Comments Posture Comments Trunk R shifted, L iliac crest is high, L hsoulder is kassidy, R shoulder retractied. neck straight, increased kyphosis, L side is body is posterior. down rotated and low on right, Palpation Assessment Location R shoulder Palpation Location Supraspinatus, infraspinatus Palpation Findings Muscle Guarding,Tenderness, Trigger Point R neck Palpation Location occiput to shouder (UT). Palpation Findings Muscle Guarding,Tenderness, Trigger Point PT-OP-K Range of Motion Start: 06/23/24 19:42 Freq: Status: Active Protocol: Document 10/15/24 10:48 [facility] (Rec: 10/15/24 12:27 [facility] [id number]) Shoulder Goniometric Range of Motion Shoulder Right Active Shoulder ROM WFL No Testing Position Sitting Flexion 154 Extension 65 Abduction 164 External Rotation at 0 degrees Abduction 70 Internal Rotation Behind Back (text) T7 Left Active Testing Position Sitting Flexion 152 Extension 55 Abduction 156 External Rotation at 0 degrees Abduction 46 Internal Rotation Behind Back (text) T10 PT-OP-L Special Tests Start: 06/23/24 19:42 Freq: Status: Active Protocol: Document 10/15/24 10:48 [facility] (Rec: 10/15/24 12:27 [facility] [id number]) Special Tests Shoulder Special Tests Empty Can Comments positive r NEER Comments neg L [place] Impingement Test Results neg L PT-OP-M Strength Start: 06/23/24 19:42 Freq: Status: Active Protocol: Document 10/15/24 10:48 [facility] (Rec: 10/15/24 12:27 [facility] [id number]) Shoulder Strength Shoulder Manual Muscle Testing Right Flexion 5 Normal Extension 5 Normal Abduction (C5) 5 Normal External Rotation 4 Good Internal Rotation 5 Normal Left Flexion 5 Normal Extension 5 Normal Abduction (C5) 4+ Good+ External Rotation 4 Good Internal Rotation 4+ Good+ PT-OP-Q Treatments Start: 06/23/24 19:42 Freq: Status: Active Protocol: Document 10/15/24 10:48 [facility] (Rec: 10/15/24 12:27 [facility] [id number]) Therapeutic Exercises Supine Exercises Scap retract/depress Supine Exercise Name w/flex Side bilateral Reps/Minutes 3 Sitting Exercises AROM/isometrics Sitting Exercise Name B shoulder AROM and MMT Side bilateral Standing Exercises IR/Ecc ER 90/90 Standing Exercise Name 90/90 ER Side bilateral Equipment Used L1 Reps/Minutes 10 resisted shld ER Side bilateral Equipment Used L1 Reps/Minutes 10 Comments cues control resisted shld ext Side bilateral Resistance TB 3 Reps/Minutes x10 Comments cued posture, rhomboid fac, elbows straight wall posture Standing Exercise Name ft away from wall and roll up for thoracic opening Reps/Minutes 2 min Manual Therapy Treatment Consent Patient gave verbal consent for manual Yes treatment Soft Tissue Mobilization R Shld Mobilization Type Rolling Body Position Supine Comments L UT/LS, post scalene Joint Mobilizations R GH Jt Comments L GHJ-post glide c/r post glide w/IR c/r, lat gappign c/ r PT-OP-R Modalities Start: 06/23/24 19:42 Freq: Status: Active Protocol: Document 09/08/24 07:31 SP (Rec: 09/08/24 16:21 SP [id number]) Electric Stimulation Electric Stimulation Interferential Current (IFC) Body Location R shoulder (UT>Posterolat scap , Pec Min/Tate at humeral head> Infraspinatus Intensity 9 Target/Sweep Sweep Patient Position Hooklying Combined With Heat/Cold Hot Pack Comments Bolster under knees. MHP for R shoulder, arm supported abd/ER comfort positioning. PT-OP-T Assessment and Plan Start: 06/23/24 19:42 Freq: Status: Active Protocol: Document 10/15/24 10:48 [facility] (Rec: 10/15/24 10:53 [facility] [id number]) Physical Therapy Assessment Goals activity Short Term Goal (STG) Pt will be able do do beading as needed w/o inc pain in shoulder. 10/15-improving STG Duration 11/14 Application Development Team Lead Goal (LTG) Pt be able to do all yoga and reaching including jimena pose w/o pain in shoulders LTG Duration achieved 10/15 Four Impairment Painful R shoulder AROM (pain reaching out to side, rated 5/ 10) Short Term Goal (STG) Improve B rotator cuff stength to 4/5 with pt able to reach out to the side with pain no greater than 2/10. 07/20/24: non consistant pain seated 1/10 return position. 08/25/24: Able to slowly reach out to side with pain 1. 5-2/10. 2/5-improving STG Duration achieved 10/15 Fpc Goal (LTG) Pt will have full ROM B shoulders to improve function with pt able to reaching out to side with B UE to cook or ironing with pain no greater than 1/10. 07/20/24: nonconsistant: relatively less, not noticing with theses activities 1, but when making jewelry front making knots 4/10 before needs to stop and walk away. 08/25/24: Can iron 2 pillow cases with pain rated 3.5/10. Becomes intolerable to iron after 2 pillowcases. Can bead 15', but must stop and stretch arm out and walk around to be able to work more . 09/24/24: can reach behind back 4/10 anterior R shld vs 10/10 inpast. 25-improving tolerance w/ROM LTG Duration achieved 10/15 Three Impairment R shoulder pain with UE WBing (transferring out of bed) Fpc Goal (LTG) Improve R shoulder strength with pt able to perform transfers out of bed at prior level of function of being able to weightbear on R shoulder to get out of bed comfortably, using R arm to push self up. 08/25/24: Can push with R shoulder from R sidelie to get up but is difficult, Pain (8 /10) with pushing wgt into R elbow. but has been getting up on L side. 09/24/24: met goal, no pain using RUE WB on bed to sit up. LTG Duration achieved 09/24 Two Impairment R shoulder pain at rest, not tolerating >15', pain rated 7/ 10 Short Term Goal (STG) Pt will be educated in self care pain management techniques (positioning, modalities, ex) to be able to tolerate sitting to watch a 30 minute TV program with pain no greater than 4/10. 08/25/24: Before [place] trip, had to put R arm up on top of sofa in order to tolerate watching TV 20 minutes at a time, pain 8/10. 09/01/24: Discussed and issued handout for pain mgmt with [employer]. 09/15-still limited and will raise UE to improve pain 09/24/24: puts in position comfort, CP, different oils/ ointments. STG Duration achieved 2/5 Fpc Goal (LTG) Decrease R shoulder pain to no greater than 1/10 with pt able to sit to watch a 30-60 long TV program w/o having to put R arm above head for pain relief. 08/25/24: Watching TV 20 minutes at a time, pain 8/10. 09/24/24: progressing, no consistant yet: no pain riding in car 25 min and through mtg only need move arm x1 for repositioning 1.5 hrs. 10/07-notes much improvement LTG Duration achieved 2/10 One Impairment Pt lacks appropriate self care HEP. Short Term Goal (STG) Pt will be educated and will be able to position at nighttime to tolerate side sleeping on either side for a restful period of sleep. (Late entry) 06/30/24: I/S for nighttime head/R UE positioning. 07/06/24: ed use pillows support under R UE and BLEs hooklying. 07/14/24: Pt having more restful sleep. 08/25/24: Pt able to sleep on R side for a restful sleep. Has difficulty sleeping L because of the need to support the arm during sleep. STG Duration MET GOAL. Fpc Goal (LTG) Pt will be independent in an effective self care HEP for R shoulder/RC/scapular stabilizers/mainly upper back strengthening and R shoulder mobility ex's in order to mitigate R shoulder pain. ( used to go to ex class 3x/wk, last time was in early May). 07/02/24: HEP: R sleeper stretch, shoulder rolls and depression/retraction, & written I/S shoulder pinches. 07/06/24: added HEP: wall posture, self STMs post neck and UT ball on wall.\ 07/08/24: added resisted shld ER and extension, self STMs use theracane and ball on wall . 08/25/24: Pt has been in [place]; therefore has not able to do HEP. 09/15-will work to restart after return now from trip 10/07-doing well with exercises but needs cues for more advanced ones LTG Duration achieved 2/13 w/min cues Assessment Summary Assessment Pt making good progress w/PT and has much improved B shoulder mobility after last session. She cont to have minor lacks of strength and ROM that still affect her ability to particiapte in all activities. Plant o follow up w/pt in 2 weeks after seh has slowly inc her activity back to normal and cont HEP. Further treatment may be needed adn will be determined at next visit. Physical Therapy Plan Frequency and Duration Frequency of Treatment 2x/Week Duration of treatment (weeks) 8 Plan of Care Start Date 10/12/24 Plan of Care End Date 12/07/24 Therapeutic Interventions Therapeutic Interventions Home Exercise Program,Joint Mobilizations,Manual Therapy, Neuromuscular Re-education, Patient/Caregiver Education, Self-Care/Home Management,Soft Tissue Mobilization,Taping, Therapeutic Activities, Therapeutic Exercises Modalities Cold Pack/Ice Massage,Electric Stimulation,Hot Packs Next Visit Focus/Plan Next Note Type Discharge Summary Next Visit Plan DC if pt ready
--- NOTE | 2024-10-28 09:31 | PT.OTN ---
Current Diagnoses Pain in right shoulder (10/28/24) Lumbago with sciatica, unspecified side (10/28/24) Other shoulder lesions, right shoulder (10/28/24) Physical Therapy Treatment Note PT-OP-A Visit Information Start: 06/23/24 19:42 Freq: Status: Active Protocol: Document 10/28/24 08:19 LR (Rec: 10/28/24 09:31 [facility] [id number]) Out-Patient Physical Therapy Visit Information Visit Information Visit Type Treatment Note Visit Start Time 08:20 Visit Stop Time 09:00 Visit Number 18 Number of VP [employer] Visits 0 PT-OP-B Current Condition Start: 06/23/24 19:42 Freq: Status: Active Protocol: Document 06/30/24 13:48 LRN (Rec: 06/30/24 17:18 LRN [id number]) Current Condition History of Current Condition Onset Date May Current Complaints Pain in R shldr radiating up the neck. Increasing pain when not distracted History of Current Condition Pt states she is interested in having therapy for her R shoulder and neck pain, stating her back is not a problem anymore. Pt reports, maybe because of gardening she started to have throbbing R shoulder pain in the back and radiating up the neck. Her pain has caused her to adjust her sleeping position to mostly sleep on her R side. She c/o she can't sleep on her L side because of R shoulder pain. She reports 2 days ago her R shoulder was slammed by elevator doors, causing her pain to be of greater intensity and up the neck. Prior Treatments and Tests PT for previous shoulder therapy (caroline shoulders both and individual shoulders for pain), for unknown diagnosis (5-20 yrs ago). X-ray (06/03/24) indicates Moderate acromioclavicular glenohumeral arthritic change. Treatment Goals Patient/Caregiver Goals Pt goals: - not able to put weight on R shoulder to get out of bed comfortably using R arm to push self up (used to not have pain, now has pain. - Can't sit to watch TV for more than 10-15' w/o having to put R arm above head. - Pain with reaching out to side with R UE cooking or ironing rated 5/10. - Would like to be able to do home ex's to mitigate the pain . (used to go to ex class 3x/ wk, last time was in early May). 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 Baseline Function- Recreation/Hobbies Used to go to ex class 3x/wk. Baseline Function- Other Slept on both sides w/o pain. Able to get out of bed using R UE comfortably Current Functional Impairments (Reported) Functional Limitations- ADL's Needs help removing her vest. Difficulty getting out of bed due to R shoulder pain. 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 PT-OP-G Mobility & Gait Start: 06/23/24 19:42 Freq: Status: Active Protocol: Document 06/30/24 13:48 LRN (Rec: 06/30/24 17:18 [facility] [id number]) OP Mobility Evaluation Bed Mobility Supine to and from Sit Independent, but R shoulder pain when pushing up with RUE. PT-OP-H Neuro Start: 06/23/24 19:42 Freq: Status: Active Protocol: Document 07/02/24 08:20 LRN (Rec: 07/02/24 09:06 [facility] [id number]) Sensation Evaluation Gross Sensation Gross Sensation WNL Deep Tendon Reflex & Clonus Assessment Deep Tendon Reflex Right Brachioradialis Deep Tendon Reflex 1+ Diminished Left Brachioradialis Deep Tendon Reflex 0 Absent Bilateral Tricep Deep Tendon Reflex 0 Absent Right Bicep Deep Tendon Reflex 0 Absent Left Bicep Deep Tendon Reflex 2+ Normal PT-OP-J Posture/Palpation/Skin Start: 06/23/24 19:42 Freq: Status: Active Protocol: Document 06/30/24 13:48 LRN (Rec: 06/30/24 17:18 [facility] [id number]) Posture Evaluation Position Standing Head/C-Spine Posture Forward Head Comments Posture Comments Trunk R shifted, L iliac crest is high, L hsoulder is kassidy, R shoulder retractied. neck straight, increased kyphosis, L side is body is posterior. down rotated and low on right, Palpation Assessment Location R shoulder Palpation Location Supraspinatus, infraspinatus Palpation Findings Muscle Guarding,Tenderness, Trigger Point R neck Palpation Location occiput to shouder (UT). Palpation Findings Muscle Guarding,Tenderness, Trigger Point PT-OP-K Range of Motion Start: 06/23/24 19:42 Freq: Status: Active Protocol: Document 10/15/24 10:48 [facility] (Rec: 10/15/24 12:27 [facility] [id number]) Shoulder Goniometric Range of Motion Shoulder Right Active Shoulder ROM WFL No Testing Position Sitting Flexion 154 Extension 65 Abduction 164 External Rotation at 0 degrees Abduction 70 Internal Rotation Behind Back (text) T7 Left Active Testing Position Sitting Flexion 152 Extension 55 Abduction 156 External Rotation at 0 degrees Abduction 46 Internal Rotation Behind Back (text) T10 PT-OP-L Special Tests Start: 06/23/24 19:42 Freq: Status: Active Protocol: Document 10/15/24 10:48 [facility] (Rec: 10/15/24 12:27 [facility] [id number]) Special Tests Shoulder Special Tests Empty Can Comments positive r NEER Comments neg L [place] Eliot Impingement Test Results neg L PT-OP-M Strength Start: 06/23/24 19:42 Freq: Status: Active Protocol: Document 10/15/24 10:48 [facility] (Rec: 10/15/24 12:27 [facility] [id number]) Shoulder Strength Shoulder Manual Muscle Testing Right Flexion 5 Normal Extension 5 Normal Abduction (C5) 5 Normal External Rotation 4 Good Internal Rotation 5 Normal Left Flexion 5 Normal Extension 5 Normal Abduction (C5) 4+ Good+ External Rotation 4 Good Internal Rotation 4+ Good+ PT-OP-Q Treatments Start: 06/23/24 19:42 Freq: Status: Active Protocol: Document 10/28/24 08:19 [facility] (Rec: 10/28/24 09:31 [facility] [id number]) Manual Therapy Treatment Consent Patient gave verbal consent for manual Yes treatment Soft Tissue Mobilization Cervical Paraspinals Body Location B scalenes, LS, UT Mobilization Type Myofascial Release,Rolling, Sustained Pressure Intensity/Depth Moderate Body Position s/l Comments w/scap dep Joint Mobilizations cervical Comments transverse C4-6 R c/r R GH Jt Comments L inf c/r thoracic Comments PA T1-2 and transverse R c/r 1st rib Comments L caudal c/r PT-OP-R Modalities Start: 06/23/24 19:42 Freq: Status: Active Protocol: Document 09/08/24 07:31 SP (Rec: 09/08/24 16:21 [facility] [id number]) Electric Stimulation Electric Stimulation Interferential Current (IFC) Body Location R shoulder (UT>Posterolat scap , Pec Min/Tate at humeral head> Infraspinatus Intensity 9 Target/Sweep Sweep Patient Position Hooklying Combined With Heat/Cold Hot Pack Comments Bolster under knees. MHP for R shoulder, arm supported abd/ER comfort positioning. PT-OP-T Assessment and Plan Start: 06/23/24 19:42 Freq: Status: Active Protocol: Document 10/28/24 08:19 [facility] (Rec: 10/28/24 09:31 [facility] [id number]) Physical Therapy Assessment Goals activity Short Term Goal (STG) Pt will be able do do beading as needed w/o inc pain in shoulder. 10/15-improving STG Duration 11/14 Care Home Goal (LTG) Pt be able to do all yoga and reaching including jimena pose w/o pain in shoulders LTG Duration achieved 213 Four Impairment Painful R shoulder AROM (pain reaching out to side, rated 5/ 10) Short Term Goal (STG) Improve B rotator cuff stength to 4/5 with pt able to reach out to the side with pain no greater than 2/10. 07/20/24: non consistant pain seated 1/10 return position. 08/25/24: Able to slowly reach out to side with pain 1. 5-2/10. 2/5-improving STG Duration achieved 13 Care Home Goal (LTG) Pt will have full ROM B shoulders to improve function with pt able to reaching out to side with B UE to cook or ironing with pain no greater than 1/10. 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 08/25/24: Can iron 2 pillow cases with pain rated 3.5/10. Becomes intolerable to iron after 2 pillowcases. Can bead 15', but must stop and stretch arm out and walk around to be able to work more . 09/24/24: can reach behind back 4/10 anterior R shld vs 10/10 inpast. 10/07-improving tolerance w/ROM LTG Duration achieved 10/15 Three Impairment R shoulder pain with UE WBing (transferring out of bed) Cad Intern Goal (LTG) Improve R shoulder strength with pt able to perform transfers out of bed at prior level of function of being able to weightbear on R shoulder to get out of bed comfortably, using R arm to push self up. 08/25/24: Can push with R shoulder from R sidelie to get up but is difficult, Pain (8 /10) with pushing wgt into R elbow. but has been getting up on L side. 09/24/24: met goal, no pain using RUE WB on bed to sit up. LTG Duration achieved 09/24 Two Impairment R shoulder pain at rest, not tolerating >15', pain rated 7/ 10 Short Term Goal (STG) Pt will be educated in self care pain management techniques (positioning, modalities, ex) to be able to tolerate sitting to watch a 30 minute TV program with pain no greater than 4/10. 08/25/24: Before [place] trip, had to put R arm up on top of sofa in order to tolerate watching TV 20 minutes at a time, pain 8/10. 09/01/24: Discussed and issued handout for pain mgmt with [employer]. 09/15-still limited and will raise UE to improve pain 09/24/24: puts in position comfort, CP, different oils/ ointments. STG Duration achieved 2 Care Home Goal (LTG) Decrease R shoulder pain to no greater than 1/10 with pt able to sit to watch a 30-60 long TV program w/o having to put R arm above head for pain relief. 08/25/24: Watching TV 20 minutes at a time, pain 8/10. 09/24/24: progressing, no consistant yet: no pain riding in car 25 min and through mtg only need move arm x1 for repositioning 1.5 hrs. 10/07-notes much improvement LTG Duration achieved 2/10 One Impairment Pt lacks appropriate self care HEP. Short Term Goal (STG) Pt will be educated and will be able to position at nighttime to tolerate side sleeping on either side for a restful period of sleep. (Late entry) 06/30/24: I/S for nighttime head/R UE positioning. 07/06/24: ed use pillows support under R UE and BLEs hooklying. 07/14/24: Pt having more restful sleep. 08/25/24: Pt able to sleep on R side for a restful sleep. Has difficulty sleeping L because of the need to support the arm during sleep. STG Duration MET GOAL. Care Home Goal (LTG) Pt will be independent in an effective self care HEP for R shoulder/RC/scapular stabilizers/mainly upper back strengthening and R shoulder mobility ex's in order to mitigate R shoulder pain. ( used to go to ex class 3x/wk, last time was in early May). 07/02/24: HEP: R sleeper stretch, shoulder rolls and depression/retraction, & written I/S shoulder pinches. 07/06/24: added HEP: wall posture, self STMs post neck and UT ball on wall.\ 07/08/24: added resisted shld ER and extension, self STMs use theracane and ball on wall . 08/25/24: Pt has been in [place]; therefore has not able to do HEP. 09/15-will work to restart after return now from trip 10/07-doing well with exercises but needs cues for more advanced ones LTG Duration achieved 2/13 w/min cues Assessment Summary Assessment Pt had improved L Sb and rot of neck after manaul w/less pain and improved pROM flex of L shoulder. encouraged to cont HEP Physical Therapy Plan Frequency and Duration Frequency of Treatment 2x/Week Duration of treatment (weeks) 8 Plan of Care Start Date 10/12/24 Plan of Care End Date 12/07/24 Next Visit Focus/Plan Next Note Type Treatment Note Next Visit Plan work on neck and L shoulder mobility
--- NOTE | 2024-11-02 13:54 | PT.OTN ---
Current Diagnoses Pain in right shoulder (11/02/24) Lumbago with sciatica, unspecified side (11/02/24) Other shoulder lesions, right shoulder (11/02/24) Physical Therapy Treatment Note PT-OP-A Visit Information Start: 06/23/24 19:42 Freq: Status: Active Protocol: Document 11/02/24 08:21 [facility] (Rec: 11/02/24 13:54 LR [id number]) Out-Patient Physical Therapy Visit Information Visit Information Visit Type Treatment Note Visit Start Time 08:20 Visit Stop Time 09:00 Visit Number 19 Number of CODE ENFORCEMENT OFFICER Visits 0 PT-OP-B Current Condition Start: 06/23/24 19:42 Freq: Status: Active Protocol: Document 06/30/24 13:48 LRN (Rec: 06/30/24 17:18 [facility]N [id number]) Current Condition History of Current Condition Onset Date May Current Complaints Pain in R shldr radiating up the neck. Increasing pain when not distracted History of Current Condition Pt states she is interested in having therapy for her R shoulder and neck pain, stating her back is not a problem anymore. Pt reports, maybe because of gardening she started to have throbbing R shoulder pain in the back and radiating up the neck. Her pain has caused her to adjust her sleeping position to mostly sleep on her R side. She c/o she can't sleep on her L side because of R shoulder pain. She reports 2 days ago her R shoulder was slammed by elevator doors, causing her pain to be of greater intensity and up the neck. Prior Treatments and Tests PT for previous shoulder therapy (caroline shoulders both and individual shoulders for pain), for unknown diagnosis (5-20 yrs ago). X-ray (06/03/24) indicates Moderate acromioclavicular glenohumeral arthritic change. Treatment Goals Patient/Caregiver Goals Pt goals: - not able to put weight on R shoulder to get out of bed comfortably using R arm to push self up (used to not have pain, now has pain. - Can't sit to watch TV for more than 10-15' w/o having to put R arm above head. - Pain with reaching out to side with R UE cooking or ironing rated 5/10. - Would like to be able to do home ex's to mitigate the pain . (used to go to ex class 3x/ wk, last time was in early May). 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 Baseline Function- Recreation/Hobbies Used to go to ex class 3x/wk. Baseline Function- Other Slept on both sides w/o pain. Able to get out of bed using R UE comfortably Current Functional Impairments (Reported) Functional Limitations- ADL's Needs help removing her vest. Difficulty getting out of bed due to R shoulder pain. 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 She is trying to be more equal about arm use. Right now L neck hurts a little. Can't keep arm out in front for a long time in jimena pose or can't hold it out in front for prolonged periords PT-OP-G Mobility & Gait Start: 06/23/24 19:42 Freq: Status: Active Protocol: Document 06/30/24 13:48 LRN (Rec: 06/30/24 17:18 [facility] [id number]) OP Mobility Evaluation Bed Mobility Supine to and from Sit Independent, but R shoulder pain when pushing up with RUE. PT-OP-H Neuro Start: 06/23/24 19:42 Freq: Status: Active Protocol: Document 07/02/24 08:20 LRN (Rec: 07/02/24 09:06 [facility] [id number]) Sensation Evaluation Gross Sensation Gross Sensation WNL Deep Tendon Reflex & Clonus Assessment Deep Tendon Reflex Right Brachioradialis Deep Tendon Reflex 1+ Diminished Left Brachioradialis Deep Tendon Reflex 0 Absent Bilateral Tricep Deep Tendon Reflex 0 Absent Right Bicep Deep Tendon Reflex 0 Absent Left Bicep Deep Tendon Reflex 2+ Normal PT-OP-J Posture/Palpation/Skin Start: 06/23/24 19:42 Freq: Status: Active Protocol: Document 06/30/24 13:48 LR (Rec: 06/30/24 17:18 [facility] [id number]) Posture Evaluation Position Standing Head/C-Spine Posture Forward Head Comments Posture Comments Trunk R shifted, L iliac crest is high, L hsoulder is kassidy, R shoulder retractied. neck straight, increased kyphosis, L side is body is posterior. down rotated and low on right, Palpation Assessment Location R shoulder Palpation Location Supraspinatus, infraspinatus Palpation Findings Muscle Guarding,Tenderness, Trigger Point R neck Palpation Location occiput to shouder (UT). Palpation Findings Muscle Guarding,Tenderness, Trigger Point PT-OP-K Range of Motion Start: 06/23/24 19:42 Freq: Status: Active Protocol: Document 10/15/24 10:48 [facility] (Rec: 10/15/24 12:27 [facility] [id number]) Shoulder Goniometric Range of Motion Shoulder Right Active Shoulder ROM WFL No Testing Position Sitting Flexion 154 Extension 65 Abduction 164 External Rotation at 0 degrees Abduction 70 Internal Rotation Behind Back (text) T7 Left Active Testing Position Sitting Flexion 152 Extension 55 Abduction 156 External Rotation at 0 degrees Abduction 46 Internal Rotation Behind Back (text) T10 PT-OP-L Special Tests Start: 06/23/24 19:42 Freq: Status: Active Protocol: Document 10/15/24 10:48 [facility] (Rec: 10/15/24 12:27 [facility] [id number]) Special Tests Shoulder Special Tests Empty Can Comments positive r JOSEPHINE Comments neg L Gita Eliot Impingement Test Results neg L PT-OP-M Strength Start: 06/23/24 19:42 Freq: Status: Active Protocol: Document 10/15/24 10:48 [facility] (Rec: 10/15/24 12:27 [facility] [id number]) Shoulder Strength Shoulder Manual Muscle Testing Right Flexion 5 Normal Extension 5 Normal Abduction (C5) 5 Normal External Rotation 4 Good Internal Rotation 5 Normal Left Flexion 5 Normal Extension 5 Normal Abduction (C5) 4+ Good+ External Rotation 4 Good Internal Rotation 4+ Good+ PT-OP-Q Treatments Start: 06/23/24 19:42 Freq: Status: Active Protocol: Document 11/02/24 08:21 [facility] (Rec: 11/02/24 13:54 [facility] [id number]) Therapeutic Exercises Sitting Exercises neck stretch Sitting Exercise Name 1. UT 2. LS stretch Side left Reps/Minutes 30 sec ea Standing Exercises flex Standing Exercise Name retraction Side bilateral Equipment Used L1 Reps/Minutes 12 Other Exercises Self STMs Other Exercise Name review w/wall and ball L scap region Manual Therapy Treatment Consent Patient gave verbal consent for manual Yes treatment Soft Tissue Mobilization shoulder Comments L lat and teres w/flex Joint Mobilizations SC Comments L inf glide w/c/r scap elevation AC jt Comments L ant clavicle c/r w/scap elevation R GH Jt Comments L GHJ post glide and translation , distaction, inf glide, lat gapping and post glide w/IR c/r 1st rib Comments L caudal ribs 1-2, PA rib 1 c/ r PT-OP-R Modalities Start: 06/23/24 19:42 Freq: Status: Active Protocol: Document 09/08/24 07:31 SP (Rec: 09/08/24 16:21 SP [id number]) Electric Stimulation Electric Stimulation Interferential Current (IFC) Body Location R shoulder (UT>Posterolat scap , Pec Min/Tate at humeral head> Infraspinatus Intensity 9 Target/Sweep Sweep Patient Position Hooklying Combined With Heat/Cold Hot Pack Comments Bolster under knees. MHP for R shoulder, arm supported abd/ER comfort positioning. PT-OP-T Assessment and Plan Start: 06/23/24 19:42 Freq: Status: Active Protocol: Document 11/02/24 08:21 [facility] (Rec: 11/02/24 13:54 [facility] [id number]) Physical Therapy Assessment Goals activity Short Term Goal (STG) Pt will be able do do beading as needed w/o inc pain in shoulder. 10/15-improving STG Duration 11/14 License Clerk Goal (LTG) Pt be able to do all yoga and reaching including jimena pose w/o pain in shoulders LTG Duration achieved 13 Four Impairment Painful R shoulder AROM (pain reaching out to side, rated 5/ 10) Short Term Goal (STG) Improve B rotator cuff stength to 4/5 with pt able to reach out to the side with pain no greater than 2/10. 07/20/24: non consistant pain seated 1/10 return position. 12/24/24: Able to slowly reach out to side with pain 1. 5-2/10. 25-improving STG Duration achieved 10/15 License Clerk Goal (LTG) Pt will have full ROM B shoulders to improve function with pt able to reaching out to side with B UE to cook or ironing with pain no greater than 1/10. 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 08/25/24: Can iron 2 pillow cases with pain rated 3.5/10. Becomes intolerable to iron after 2 pillowcases. Can bead 15', but must stop and stretch arm out and walk around to be able to work more . 09/24/24: can reach behind back 4/10 anterior R shld vs 10/10 inpast. 25-improving tolerance w/ROM LTG Duration achieved 10/15 Three Impairment R shoulder pain with UE WBing (transferring out of bed) [facility] Goal (LTG) Improve R shoulder strength with pt able to perform transfers out of bed at prior level of function of being able to weightbear on R shoulder to get out of bed comfortably, using R arm to push self up. 08/25/24: Can push with R shoulder from R sidelie to get up but is difficult, Pain (8 /10) with pushing wgt into R elbow. but has been getting up on L side. 09/24/24: met goal, no pain using RUE WB on bed to sit up. LTG Duration achieved 09/24 Two Impairment R shoulder pain at rest, not tolerating >15', pain rated 7/ 10 Short Term Goal (STG) Pt will be educated in self care pain management techniques (positioning, modalities, ex) to be able to tolerate sitting to watch a 30 minute TV program with pain no greater than 4/10. 08/25/24: Before [place] trip, had to put R arm up on top of sofa in order to tolerate watching TV 20 minutes at a time, pain 8/10. 09/01/24: Discussed and issued handout for pain mgmt with [employer]. 09/15-still limited and will raise UE to improve pain 09/24/24: puts in position comfort, CP, different oils/ ointments. STG Duration achieved 2/5 [facility] Goal (LTG) Decrease R shoulder pain to no greater than 1/10 with pt able to sit to watch a 30-60 long TV program w/o having to put R arm above head for pain relief. 08/25/24: Watching TV 20 minutes at a time, pain 8/10. 09/24/24: progressing, no consistant yet: no pain riding in car 25 min and through mtg only need move arm x1 for repositioning 1.5 hrs. 10/07-notes much improvement LTG Duration achieved 2/10 One Impairment Pt lacks appropriate self care HEP. Short Term Goal (STG) Pt will be educated and will be able to position at nighttime to tolerate side sleeping on either side for a restful period of sleep. (Late entry) 06/30/24: I/S for nighttime head/R UE positioning. 07/06/24: ed use pillows support under R UE and BLEs hooklying. 07/14/24: Pt having more restful sleep. 08/25/24: Pt able to sleep on R side for a restful sleep. Has difficulty sleeping L because of the need to support the arm during sleep. STG Duration MET GOAL. License Clerk Goal (LTG) Pt will be independent in an effective self care HEP for R shoulder/RC/scapular stabilizers/mainly upper back strengthening and R shoulder mobility ex's in order to mitigate R shoulder pain. ( used to go to ex class 3x/wk, last time was in early May). 07/02/24: HEP: R sleeper stretch, shoulder rolls and depression/retraction, & written I/S shoulder pinches. 07/06/24: added HEP: wall posture, self STMs post neck and UT ball on wall.\ 07/08/24: added resisted shld ER and extension, self STMs use theracane and ball on wall . 08/25/24: Pt has been in [place]; therefore has not able to do HEP. 09/15-will work to restart after return now from trip 10/07-doing well with exercises but needs cues for more advanced ones LTG Duration achieved 2/13 w/min cues Assessment Summary Assessment Improved L shoulder flex after manual PROM and AROM . She cont to imprvoe w/mobility and did well with exercises. Physical Therapy Plan Frequency and Duration Frequency of Treatment 2x/Week Duration of treatment (weeks) 8 Plan of Care Start Date 10/12/24 Plan of Care End Date 12/07/24 Next Visit Focus/Plan Next Note Type Treatment Note Next Visit Plan work on neck and L shoulder mobility
--- NOTE | 2024-11-10 09:46 | PT.OTN ---
Current Diagnoses Pain in right shoulder (11/10/24) Lumbago with sciatica, unspecified side (11/10/24) Other shoulder lesions, right shoulder (11/10/24) Physical Therapy Treatment Note PT-OP-A Visit Information Start: 06/23/24 19:42 Freq: Status: Active Protocol: Document 11/10/24 08:16 LR (Rec: 11/10/24 09:04 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 Increasing pain when not distracted History of Current Condition Pt states she is interested in having therapy for her R shoulder and neck pain, stating her back is not a problem anymore. Pt reports, maybe because of gardening she started to have throbbing R shoulder pain in the back and radiating up the neck. Her pain has caused her to adjust her sleeping position to mostly sleep on her R side. She c/o she can't sleep on her L side because of R shoulder pain. She reports 2 days ago her R shoulder was slammed by elevator doors, causing her pain to be of greater intensity and up the neck. Prior Treatments and Tests PT for previous shoulder therapy (caroline shoulders both and individual shoulders for pain), for unknown diagnosis (5-20 yrs ago). X-ray (06/03/24) indicates Moderate acromioclavicular glenohumeral arthritic change. Treatment Goals Patient/Caregiver Goals Pt goals: - not able to put weight on R shoulder to get out of bed comfortably using R arm to push self up (used to not have pain, now has pain. - Can't sit to watch TV for more than 10-15' w/o having to put R arm above head. - Pain with reaching out to side with R UE cooking or ironing rated 5/10. - Would like to be able to do home ex's to mitigate the pain . (used to go to ex class 3x/ wk, last time was in early May). 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 Baseline Function- Recreation/Hobbies Used to go to ex class 3x/wk. Baseline Function- Other Slept on both sides w/o pain. Able to get out of bed using R UE comfortably Current Functional Impairments (Reported) Functional Limitations- ADL's Needs help removing her vest. Difficulty getting out of bed due to R shoulder pain. 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 [id number]) OP-PT Subjective Patient Comments Patient Comments Pt reports she did the entire routine at exercise class and there were only a few tweaks. Still that lat arm pain. She woke up a couple days ago, she woke up and her neck was painful and by midday it felt better. Walks with big arms and that helps. PT-OP-G Mobility & Gait Start: 06/23/24 19:42 Freq: Status: Active Protocol: Document 06/30/24 13:48 LRN (Rec: 06/30/24 17:[address] [facility] [id number]) OP Mobility Evaluation Bed Mobility Supine to and from Sit Independent, but R shoulder pain when pushing up with RUE. PT-OP-H Neuro Start: 06/23/24 19:42 Freq: Status: Active Protocol: Document 07/02/24 08:20 LRN (Rec: 07/02/24 09:[address] [facility] [id number]) Sensation Evaluation Gross Sensation Gross Sensation WNL Deep Tendon Reflex & Clonus Assessment Deep Tendon Reflex Right Brachioradialis Deep Tendon Reflex 1+ Diminished Left Brachioradialis Deep Tendon Reflex 0 Absent Bilateral Tricep Deep Tendon Reflex 0 Absent Right Bicep Deep Tendon Reflex 0 Absent Left Bicep Deep Tendon Reflex 2+ Normal PT-OP-J Posture/Palpation/Skin Start: 06/23/24 19:42 Freq: Status: Active Protocol: Document 06/30/24 13:48 LR (Rec: 06/30/24 17:[address] [facility] [id number]) Posture Evaluation Position Standing Head/C-Spine Posture Forward Head Comments Posture Comments Trunk R shifted, L iliac crest is high, L hsoulder is kassidy, R shoulder retractied. neck straight, increased kyphosis, L side is body is posterior. down rotated and low on right, Palpation Assessment Location R shoulder Palpation Location Supraspinatus, infraspinatus Palpation Findings Muscle Guarding,Tenderness, Trigger Point R neck Palpation Location occiput to shouder (UT). Palpation Findings Muscle Guarding,Tenderness, Trigger Point PT-OP-K Range of Motion Start: 06/23/24 19:42 Freq: Status: Active Protocol: Document 11/10/24 08:16 [facility] (Rec: 11/10/24 09:04 [facility] [id number]) Cervical Spine Range of Motion Cervical Spine Active Degrees Flexion 51 Extension 70 Rotation Left 72 Rotation Right 75 Lateral Flexion Left 45 Lateral Flexion Right 52 Comments SB contra lat stretch; pain L neck w/rot L Shoulder Goniometric Range of Motion Shoulder Right Active Shoulder ROM WFL No Testing Position Sitting Flexion 160 Extension 70 Abduction 171 External Rotation at 0 degrees Abduction 70 Internal Rotation Behind Back (text) T7 Left Active Testing Position Sitting Flexion 151 Extension 61 Abduction 168 External Rotation at 0 degrees Abduction 60 Internal Rotation Behind Back (text) T9 PT-OP-L Special Tests Start: 06/23/24 19:42 Freq: Status: Active Protocol: Document 10/15/24 10:48 [facility] (Rec: 10/15/24 12:27 [facility] [id number]) Special Tests Shoulder Special Tests Empty Can Comments positive r NEER Comments neg L Gita Eliot Impingement Test Results neg L PT-OP-M Strength Start: 06/23/24 19:42 Freq: Status: Active Protocol: Document 11/10/24 08:16 [facility] (Rec: 11/10/24 09:04 [facility] [id number]) Shoulder Strength Shoulder Manual Muscle Testing Right Flexion 5 Normal Extension 5 Normal Abduction (C5) 5 Normal External Rotation 4 Good Internal Rotation 5 Normal Left Flexion 5 Normal Extension 5 Normal Abduction (C5) 4+ Good+ External Rotation 4+ Good+ Internal Rotation 5 Normal PT-OP-Q Treatments Start: 06/23/24 19:42 Freq: Status: Active Protocol: Document 11/10/24 08:16 [facility] (Rec: 11/10/24 09:04 [facility] [id number]) Manual Therapy Treatment Consent Patient gave verbal consent for manual Yes treatment Soft Tissue Mobilization shoulder Mobilization Type Rolling Comments L rhomoids, mid trap, infraspinatus Cervical Paraspinals Body Location L scalenes, LS, UT Mobilization Type Myofascial Release,Rolling, Sustained Pressure Intensity/Depth Moderate Body Position Sidelying Comments w/scap dep Joint Mobilizations ribs Joint L Comments PA rib 2, caudal rib 1 thoracic Comments transverse T1 and 2 R w/rot Self-Care/Home Management Treatment Education Other Education verbal review of HEP- encouraged to do strength every other day PT-OP-R Modalities Start: 06/23/24 19:42 Freq: Status: Active Protocol: Document 09/08/24 07:31 SP (Rec: 09/08/24 16:21 SP [id number]) Electric Stimulation Electric Stimulation Interferential Current (IFC) Body Location R shoulder (UT>Posterolat scap , Pec Min/Tate at humeral head> Infraspinatus Intensity 9 Target/Sweep Sweep Patient Position Hooklying Combined With Heat/Cold Hot Pack Comments Bolster under knees. MHP for R shoulder, arm supported abd/ER comfort positioning. PT-OP-T Assessment and Plan Start: 06/23/24 19:42 Freq: Status: Active Protocol: Document 11/10/24 08:16 [facility] (Rec: 11/10/24 09:04 [facility] [id number]) Physical Therapy Assessment Goals activity Short Term Goal (STG) Pt will be able do do beading as needed w/o inc pain in shoulder. 2/-improving STG Duration hasn't tried [employer] Supervisor Goal (LTG) Pt be able to do all yoga and reaching including jimena pose w/o pain in shoulders LTG Duration achieved 2/13 Four Impairment Painful R shoulder AROM (pain reaching out to side, rated 5/ 10) Short Term Goal (STG) Improve B rotator cuff stength to 4/5 with pt able to reach out to the side with pain no greater than 2/10. 07/20/24: non consistant pain seated 1/10 return position. 08/25/24: Able to slowly reach out to side with pain 1. 5-2/10. 2/5-improving STG Duration achieved 10/15 Skilled Nursing Goal (LTG) Pt will have full ROM B shoulders to improve function with pt able to reaching out to side with B UE to cook or ironing with pain no greater than 1/10. 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 08/25/24: Can iron 2 pillow cases with pain rated 3.5/10. Becomes intolerable to iron after 2 pillowcases. Can bead 15', but must stop and stretch arm out and walk around to be able to work more . 09/24/24: can reach behind back 4/10 anterior R shld vs 10/10 inpast. 25-improving tolerance w/ROM LTG Duration achieved 10/15 Three Impairment R shoulder pain with UE WBing (transferring out of bed) Skilled Nursing Goal (LTG) Improve R shoulder strength with pt able to perform transfers out of bed at prior level of function of being able to weightbear on R shoulder to get out of bed comfortably, using R arm to push self up. 08/25/24: Can push with R shoulder from R sidelie to get up but is difficult, Pain (8 /10) with pushing wgt into R elbow. but has been getting up on L side. 09/24/24: met goal, no pain using RUE WB on bed to sit up. LTG Duration achieved 09/24 Two Impairment R shoulder pain at rest, not tolerating >15', pain rated 7/ 10 Short Term Goal (STG) Pt will be educated in self care pain management techniques (positioning, modalities, ex) to be able to tolerate sitting to watch a 30 minute TV program with pain no greater than 4/10. 08/25/24: Before [place] trip, had to put R arm up on top of sofa in order to tolerate watching TV 20 minutes at a time, pain 8/10. 09/01/24: Discussed and issued handout for pain mgmt with [employer]. 09/15-still limited and will raise UE to improve pain 09/24/24: puts in position comfort, CP, different oils/ ointments. STG Duration achieved 2/5 Skilled Nursing Goal (LTG) Decrease R shoulder pain to no greater than 1/10 with pt able to sit to watch a 30-60 long TV program w/o having to put R arm above head for pain relief. 08/25/24: Watching TV 20 minutes at a time, pain 8/10. 09/24/24: progressing, no consistant yet: no pain riding in car 25 min and through mtg only need move arm x1 for repositioning 1.5 hrs. 10/07-notes much improvement LTG Duration achieved 2/10 One Impairment Pt lacks appropriate self care HEP. Short Term Goal (STG) Pt will be educated and will be able to position at nighttime to tolerate side sleeping on either side for a restful period of sleep. (Late entry) 06/30/24: I/S for nighttime head/R UE positioning. 07/06/24: ed use pillows support under R UE and BLEs hooklying. 07/14/24: Pt having more restful sleep. 08/25/24: Pt able to sleep on R side for a restful sleep. Has difficulty sleeping L because of the need to support the arm during sleep. STG Duration MET GOAL. Skilled Nursing Goal (LTG) Pt will be independent in an effective self care HEP for R shoulder/RC/scapular stabilizers/mainly upper back strengthening and R shoulder mobility ex's in order to mitigate R shoulder pain. ( used to go to ex class 3x/wk, last time was in early May). 07/02/24: HEP: R sleeper stretch, shoulder rolls and depression/retraction, & written I/S shoulder pinches. 07/06/24: added HEP: wall posture, self STMs post neck and UT ball on wall.\ 07/08/24: added resisted shld ER and extension, self STMs use theracane and ball on wall . 08/25/24: Pt has been in [place]; therefore has not able to do HEP. 09/15-will work to restart after return now from trip 10/07-doing well with exercises but needs cues for more advanced ones LTG Duration achieved 2/13 w/min cues Physical Therapy Plan Discharge Physical Therapy Discharge Reasons Goals Met
== END 2024-11-12 08:40 | disposition home or self-care (01) ==
LOC: PHYS 08:15
PROVIDERS: Family Provider Internal Medicine; PCP Internal Medicine; Referring Provider Internal Medicine; Visit Provider Internal Medicine
DX: M75.81 Other shoulder lesions, right shoulder (principal); M25.511 Pain in right shoulder; M54.40 Lumbago with sciatica, unspecified side
CPT/HCPCS: 97014; 97110; 97140; 97162; 97164; 97530; 97535; 97750; G0283

== ENCOUNTER → 2024-12-24 14:37 | Outpatient (CLI) | payer MEDICARE, OTHER, SELFPAY | LOC: LAB 14:44 | PROVIDERS: Family Provider Internal Medicine; PCP Internal Medicine; Visit Provider Physician Assistant | DX: R30.0 Dysuria (principal) | CPT/HCPCS: 87077; 87086; 87186 ==

== ENCOUNTER → 2025-03-17 11:54 | Outpatient (CLI) | payer MEDICARE, OTHER, SELFPAY ==
--- NOTE | 2025-03-17 11:56 | DI.RAD.S_ITS ---
PROCEDURE: XR LUMBAR SPINE MIN 4V INDICATIONS: right sciatica TECHNIQUE: 5 views of the lumbar spine were acquired, including bilateral oblique views. COMPARISON: [facility], CR, XR LUMBAR SPINE MIN 4V, 06/24/2018, 15:14. FINDINGS: Lumbar spine curvature and alignment: Moderate dextroscoliosis lower thoracic and lumbar spine and great 1 L4-5 spondylolisthesis are unchanged from 2018. Bones: Mild chronic wedging of the T10 through L1 vertebral bodies show mild progression. Disc spaces: Moderate T10-11 through L4-5 and moderate severe L5-S1 degenerative disc disease noted. Severe L3-4 through L5-S1 degenerative facet disease . Soft tissues: No soft tissue swelling, calcification or mass. IMPRESSION: Multilevel degeneration-progressing 2018. Grade 1 L4-5 spondylolisthesis due to degenerative facet disease stable Mild chronic wedging lower thoracic upper lumbar vertebral bodies suspect chronic osteoporosis or chronic Scheuermann's disease Dictated by: Jasper Mustafa M.D. on 03/18/2025 at 10:31 Approved by: Jasper Mustafa M.D. on 03/18/2025 at 10:33
== END ==
PROVIDERS: Family Provider Internal Medicine; PCP Internal Medicine; Referring Provider Internal Medicine; Visit Provider Internal Medicine
DX: M43.16 Spondylolisthesis, lumbar region (principal); M51.34 Other intervertebral disc degeneration, thoracic region; M51.16 Intervertebral disc disorders with radiculopathy, lumbar region; M51.17 Intervertebral disc disorders with radiculopathy, lumbosacral region; M47.26 Other spondylosis with radiculopathy, lumbar region; M47.27 Other spondylosis with radiculopathy, lumbosacral region; M48.55XA Collapsed vertebra, not elsewhere classified, thoracolumbar region, initial encounter for fracture
CPT/HCPCS: 72110

== ENCOUNTER → 2025-05-31 15:41 | Outpatient (CLI) | payer MEDICARE, OTHER, SELFPAY ==
[2025-05-31 16:53] LABS: Hemoglobin A1C% w Est Avg Glu 5.4 % (4.0-6.0)
[2025-05-31 17:09] LABS: Blood Urea Nitrogen 14 mg/dL (7-17); Calcium 9.8 mg/dL (8.4-10.2); Carbon Dioxide 28 mmol/L (22-32); Chloride 100 mmol/L (98-107); Cholesterol 253 mg/dL (140-199); Estimated Glomerular Filt Rate > 60 mL/min (>60); Glucose 92 mg/dL (70-99); HDL Cholesterol 85 mg/dL (40-60); HEMOLYSIS < 15 (0-50); Potassium 4.4 mmol/L (3.4-5.1); Sodium 135 mmol/L (137-145); Triglycerides 129 mg/dL (35-150)
== END ==
PROVIDERS: Family Provider Internal Medicine; PCP Internal Medicine; Referring Provider Internal Medicine; Visit Provider Internal Medicine
DX: R73.01 Impaired fasting glucose (principal); E78.2 Mixed hyperlipidemia
CPT/HCPCS: 80048; 80061; 83036; 84450